=== PATIENT | female | born 1955 | race Caucasian/White ===

== ENCOUNTER → 2017-02-26 | Day surgery (SDC) | payer OTHER, MEDICAID ==
[~2017-02-26] MED LIST: ADVAI250I INH; FLON0.053; FURO1TAB93 PO; HYDR50TA94 PO; LATA.005%O EACH EYE; Levothyroxine Sodium PO; METO50TA PO; Meclizine Hcl PO; NYST100024 TOP; NYSTT TOP; POTA10TA48 PO; PRAV40 PO; PROPOFOL 200 MG/20 ML AMP IV ONE; PROT40TA PO; RIVA15 PO; RIVA20 PO; SERO200T PO; TEGR100T PO
--- NOTE | 2017-02-26 13:40 | GIPROC ---
[facility] [address] [facility], [id number] EGD PROCEDURE REPORT EXAM DATE: 02/26/2017 PATIENT NAME: Zena Davenport I MR #: [id number] BIRTHDATE: 1955 ATTENDING: Hola Barrientos MD ORDER #: [id number] HELIUM ARC WELDER: none STATUS: outpatient INDICATIONS: The patient is a 61 yr old female here for an EGD due to heartburn PROCEDURE PERFORMED: EGD w/ biopsy MEDICATIONS: None and Per Anesthesia. TOPICAL ANESTHETIC: none CONSENT: The patient understands the risks and benefits of the procedure and understands that these risks include, but are not limited to: sedation, allergic reaction, infection, perforation and/or bleeding. Alternative means of evaluation and treatment include, among others: physical exam, x-rays, and/or surgical intervention. The patient elects to proceed with this endoscopic procedure. medical equipment was checked for proper function. Hand hygiene and appropriate measures for infection prevention was taken. After the risks, benefits and alternatives of the procedure were thoroughly explained, Informed consent was verified, confirmed and timeout was successfully executed by the treatment team. The patient was anesthetized with topical anesthesia and the EC-[id number] ([id number]) endoscope was introduced through the mouth and advanced to the first portion of the duodenum. Biopsy for H. Pylori and gastritis done at antrum. Retroflexed views revealed a hiatal hernia The gastroscope was then slowly withdrawn and removed. ESOPHAGUS: A 3 cm hiatal hernia was noted. ADVERSE EVENTS: There were no complications. IMPRESSIONS: 1. 3 cm hiatal hernia 2. Retroflexed views revealed a hiatal hernia RECOMMENDATIONS: 1. Await biopsy results. Biopsy results will not be ready for 7-10 days. If you don't hear from us in two weeks, call our office for biopsy results. 2. Continue PPI PATIENT CONDITION: fair DISPOSITION: Home REPEAT EXAM: NONE Hola Barrientos MD eSigned: Hola Barrientos MD 02/26/2017 1:39 PM cc: Hola Barrientos MD
== END | disposition home or self-care (01) ==
LOC: ESDC 11:59
PROVIDERS: ATTEND Surgery
DX: R12 Heartburn (principal); K44.9 Diaphragmatic hernia without obstruction or gangrene
CPT/HCPCS: 88305; 88312

== ENCOUNTER 2017-05-13 05:31 | Inpatient (IN) | payer OTHER, MEDICARE ==
[~2017-05-13] VITALS: Ht 167.6 cm; Wt 117.9 kg
[~2017-05-13 05:31] MED LIST changes: +ADVA250A INH; -ADVAI250I INH; +CLON1TAB PO; +DOXE100C4 PO; -FLON0.053; +FLUT1SPR5 EACH NARE; -FURO1TAB93 PO; +FURO40TA PO; -HYDR50TA94 PO; +LEVO88TA2 PO; -Levothyroxine Sodium PO; -Meclizine Hcl PO; -NYST100024 TOP; +NYST10007 TOPICAL; -NYSTT TOP; -POTA10TA48 PO; -PRAV40 PO; +PRAV40TA2 PO; -PROPOFOL 200 MG/20 ML AMP IV ONE; +REST0.05 EACH EYE; -RIVA15 PO; -RIVA20 PO; +SERO400T PO; -TEGR100T PO; +TEGR200T PO
[2017-05-13] MEDS ORDERED: APREPITANT 40 MG CAP PO SCH (06:00)
[2017-05-13] MEDS ORDERED: ceFAZolin 2 GM PREMIX 50 ML IV SCH (06:00)
[2017-05-13] MEDS ORDERED: SCOPOLAMINE 1.5 MG PATCH T-DERMAL SCH (06:00)
[2017-05-13] MEDS ORDERED: ACETAMINOPHEN 1000 MG/100 ML 100 ML IV SCH (06:00)
[2017-05-13] MEDS ORDERED: SODIUM CHLORID 0.9% 500 ML IV PRN (06:00)
[2017-05-13] MEDS ORDERED: METOPROLOL TARTRATE 25 MG TAB PO PRN (06:00)
[2017-05-13] MEDS ORDERED: CHLORHEXIDINE GLUCONATE 2 % 1 PACK (2 CLOTHS) TOPICAL PRN (06:00)
[2017-05-13] MEDS ORDERED: LACTATED RINGER'S 1000 ML IV PRN (06:00)
[2017-05-13] MEDS ORDERED: ONDANSETRON HCL 4 MG/2 ML VIAL IV PUSH SCH (06:00)
[2017-05-13] MEDS ORDERED: POVIDONE IODINE 5% (ANTISEPSIS KIT) 4 APPLICATIONS EACH NARE PRN (06:00)
[2017-05-13] MEDS ORDERED: metroNIDAZOLE 500 MG INJ 100 ML IV ONE (06:17)
[2017-05-13] MEDS ORDERED: ROPI0.5T PO (06:32)
[2017-05-13] MEDS ORDERED: MONT10TA4 PO (06:32)
[2017-05-13] MEDS ORDERED: LUMI0.01 EACH EYE (06:32)
[2017-05-13] MEDS ORDERED: BUPIVACAINE/EPINEPHRINE 0.5% PF 30 ML VIAL ONE (07:01)
--- NOTE | 2017-05-13 07:35 | HHI.PR ---
Immediate Post Op Note Procedure Date: May 13, 2017 Pre Op Diagnosis: morbid obesity bmi 43, HTN, GERD, DM, Hypercholestremia, hiatal hernia Post Op Diagnosis: same Surgeon: Hola Barrientos MD Airdox Fitter(s): thai Procedure: laparoscopic sleeve gastrectomy with hiatal hernia repair Findings: large hiatal hernia, no leak with methylene blue Complications: none Specimen(s) removed: none Estimated blood loss: 5cc Anesthesia: General Drains: None Patient to: PACU Patient Condition: Good Hola Barrientos MD May 13, 2017 07:35
[2017-05-13] MEDS ORDERED: SODIUM CHLORIDE 0.9% FLUSH 10 ML FLUSH IV FLUSH PRN (07:45)
[2017-05-13] MEDS ORDERED: diphenhydrAMINE HCL ELIXIR 12.5 MG/5 ML CUP PO PRN (07:45)
[2017-05-13] MEDS ORDERED: NALOXONE HCL 0.4 MG/ML AMP IV PUSH PRN (07:45)
[2017-05-13] MEDS ORDERED: MORPHINE SULFATE 30 MG/30 ML PCA IV SCH (07:45)
[2017-05-13] MEDS ORDERED: ACETAMINOPHEN 325MG/HYDROcodone 7.5MG/15ML UDC PO PRN (07:45)
[2017-05-13] MEDS ORDERED: diphenhydrAMINE HCL 50 MG/ML VIAL IV PUSH PRN (07:45)
[2017-05-13] MEDS ORDERED: ENALAPRILAT 1.25 MG/ML VIAL IV PUSH PRN ×2 (07:45→22:30)
[2017-05-13] MEDS ORDERED: BUPIVACAINE LIPOSOME PF 1.3% 20 ML VIAL ONE (07:59)
[2017-05-13] MEDS ORDERED: Post-op Orders (for Pharmacy) OTHER ONE (09:22)
[2017-05-13] MEDS ORDERED: MIDAZOLAM HCL 2 MG/2 ML VIAL ONE (09:32)
[2017-05-13] MEDS ORDERED: *morphine SULFATE 4 MG/ML PERIprocedure ONLY ONE (09:38)
[2017-05-13] MEDS: METOCLOPRAMIDE HCL 10 MG/2 ML VIAL IV PUSH SCH ×3 (09:39→22:30)
[2017-05-13] MEDS ORDERED: HYDROmorphone HCL PF 2 MG/ML VIAL ONE (09:53)
[2017-05-13] MEDS ORDERED: *ONDANSETRON 4 MG VIAL PERIprocedural Use ONLY ONE (09:54)
[2017-05-13] MEDS: D5-1/2 NS + KCL 20 MEQ INJ 1,000 ML IV SCH ×2 (10:03→15:27)
[2017-05-13] MEDS: PANTOPRAZOLE SOD 40 MG DELAYED RELEASE TAB PO SCH (10:06)
[2017-05-13] MEDS: SODIUM CHLORIDE 0.9% FLUSH 10 ML FLUSH IV FLUSH SCH ×2 (10:06→20:20)
[2017-05-13] MEDS: RESP: ALBUTEROL 2.5 MG/3 ML NEB (SCH) INH ×4 (11:01→23:58)
[2017-05-13] MEDS ORDERED: DO NOT ADM ANY ANTICOAGULANT DRUGS PRN (11:45)
[2017-05-13] MEDS ORDERED: SODIUM CHLOR 0.9% 250 ML INJ 500 ML IV ONE (12:00)
[2017-05-13] MEDS ORDERED: DEXAMETHASONE SOD PHOS 4 MG/ML VIAL IV ONE (12:00)
[2017-05-13] MEDS ORDERED: LIDOCAINE HCL 1% PF 5 ML SYRINGE OTHER ONE (12:00)
[2017-05-13] MEDS ORDERED: PHENYLEPH/NS 1000 MCG/10 ML SYR IV ONE (12:00)
[2017-05-13] MEDS ORDERED: GLYCOPYRROLATE 1 MG/5 ML SYRINGE IV PUSH ONE (12:00)
[2017-05-13] MEDS ORDERED: ONDANSETRON HCL 4 MG/2 ML VIAL IV ONE (12:00)
[2017-05-13] MEDS ORDERED: NEOSTIGMINE 5 MG/5 ML SYRINGE IV PUSH ONE (12:00)
[2017-05-13] MEDS ORDERED: LACTATED RINGER'S 1000 ML INJ 1,000 ML IV ONE (12:00)
[2017-05-13] MEDS ORDERED: PHENYLEPHRINE HCL 10 MG/ML VIAL IV ONE (12:00)
[2017-05-13] MEDS ORDERED: PROPOFOL 200 MG/20 ML AMP IV ONE (12:00)
[2017-05-13] MEDS ORDERED: ceFAZolin INJ 1,000 MG VIAL IV ONE (12:00)
[2017-05-13] MEDS ORDERED: ROCURONIUM INJ 50 MG/5 ML SYRINGE IV PUSH ONE (12:00)
[2017-05-13] MEDS ORDERED: ePHEDrine/NS 25 MG/5 ML SYRINGE IV ONE (12:00)
[2017-05-13 13:00] VITALS: BP 141/81; PULSE 77; RESP 19; TEMP 96.5; O2SAT 91
[2017-05-13] MEDS: PCA - TOTAL MG MORPHINE DELIVERED PER SHIFT SCH ×2 (14:00→22:00)
--- NOTE | 2017-05-13 14:03 | MP ---
cc: Hola Barrientos MD DATE OF OPERATION: 05/13/2017 PREOPERATIVE DIAGNOSIS: 1. Morbid obesity BMI of 43. 2. Hypertension. 3. Hypercholesterolemia. 4. Diabetes. 5. Reflux. 6. Morbid obesity. 7. Hiatal Hernia POSTOPERATIVE DIAGNOSIS: 1. Morbid obesity BMI of 43. 2. Hypertension. 3. Hypercholesterolemia. 4. Diabetes. 5. Reflux. 6. Morbid obesity. 7. Hiatal Hernia PROCEDURE PERFORMED: 1. Laparoscopic sleeve gastrectomy over 36 Estonian ViSiGi bougie. 2. Hiatal hernia repair. SURGEON: Hola Barrientos MD PRODUCTION GRAPHIC DESIGNER: MD Dr. Mickey Jay was necessary due to the complexity of the case. Dr. Arevalo helped with retraction and camera control. ANESTHESIA: Steph LAURENT, see anesthesia sheet. ESTIMATED BLOOD LOSS: 10 mL. DRAINS: None. COMPLICATIONS: None. WOUND CLASSIFICATION: Clean, contaminated. SPECIMENS: None. INDICATIONS: The patient is a 61-year-old female who presented with multiple attempts at weight loss without success. Patient with a BMI of 43 and comorbidities including hypertension, diabetes, reflux, hiatal hernia, hypercholesterolemia. Indications/decision for bariatric surgery discussed in detail. Decision to proceed. DETAILS OF THE PROCEDURE: The patient was taken to the operating room suite, placed in the supine position. She was prepped and draped in the usual sterile fashion after induction of general endotracheal anesthesia. A brief time out done stating correct patient, procedure, and surgical site. We were all in agreement with this. Attention first directed to a point 15 cm distal to the xiphoid. Local anesthetic anesthetized. A stab diogo incision was made. A 5 mm Optiview port was done under direct visualization to create pneumoperitoneum. On cursory inspection, no evidence of injury. Several other trocars placed including two 5 mm left lower quadrant trocars and a 15 mm right lower quadrant trocar and a 5 mm right upper quadrant trocar for liver retraction. Local anesthetic injected at all port sites prior to placement. The patient was placed in reverse Trendelenburg and airplaned to the right. A luz-flex retractor placed to retract the left lobe of the liver. On inspection, there was noted to be a moderate sized hiatal hernia. The curve of the stomach was taken down using a Harmonic scalpel 5 cm proximal to the pylorus and carried all the way up to the angle of His. The posterior ligamentous attachments were minimally taken down. The hiatal hernia was identified. The left ayse of the diaphragm was dissected out. The GE junction was mobilized into the abdominal cavity. The hernia sac was reduced and excised. The crura of the diaphragm were approximated anteriorly with 0 silk heoren-tt-iurao suture. This was done over a 36 Estonian ViSiGi bougie. The ViSiGi was advanced to the pylorus and placed to suction. The stomach was divided creating the free gastrectomy approximately 5 cm from the pylorus carried up all the way to the angle of His to remove approximately 80% of the stomach. This was done using Endo-CRISTOBAL Greybull stapler initially black load, followed by green and gold loads. These were done with all reinforced Seamguard staple lines. This was taken distance 2 cm from the angle incisura staple line and 1 cm from the GE junction. The bougie was removed. Methylene blue was used to test with 60 mL x 2 without evidence of leaking. Evicel was used. Bleeding points were controlled for hemostasis. The sleeve gastrectomy remnants stomach was removed from the 15 mm port site in the right lower quadrant. The fascia to 15 mm was closed with 0 Vicryl suture passer in a kctazh-hz-hkifj fashion. All lap and instrument counts were correct at the end of the procedure. The patient tolerated the procedure. No intraoperative complications. The patient was extubated and taken to PACU. MD PHILIPPE Sutton/DONELL/emanuel , 01:03 PM , 01:36 PM KIM
[2017-05-13] MEDS: ENOXAPARIN SODIUM 40 MG/0.4 ML SYRINGE SQ SCH (15:15)
[2017-05-13] MEDS: metroNIDAZOLE 500 MG INJ 100 ML IV SCH ×2 (15:15→23:09)
[2017-05-13] MEDS: ACETAMINOPHEN 1000 MG/100 ML 100 ML IV SCH ×2 (15:15→20:16)
[2017-05-13 16:00] VITALS: BP 124/81; PULSE 82; RESP 17; TEMP 97.6; O2SAT 92
[2017-05-13 20:00] VITALS: BP 133/72; PULSE 95; RESP 20; TEMP 99.6; O2SAT 92
[2017-05-13] MEDS ORDERED: LORazepam 1 MG TAB PO PRN (22:30)
[2017-05-13] MEDS: DOXEPIN HCL 50 MG CAP PO SCH (22:30)
[2017-05-13] MEDS: QUEtiapine FUMARATE 200 MG TAB PO SCH (23:08)
[2017-05-14] VITALS (8 sets, daily range): BP systolic 104–153; BP diastolic 56–73; PULSE 77–98; RESP 16–19; TEMP 97–98.6; O2SAT 92–94
[2017-05-14] MEDS: carBAMazepine 200 MG TAB PO SCH ×2 (00:06→21:00)
[2017-05-14] MEDS: ACETAMINOPHEN 1000 MG/100 ML 100 ML IV SCH ×3 (01:41→22:30)
[2017-05-14] MEDS: D5-1/2 NS + KCL 20 MEQ INJ 1,000 ML IV SCH ×3 (02:00→18:00)
[2017-05-14] MEDS: RESP: ALBUTEROL 2.5 MG/3 ML NEB (SCH) INH ×5 (03:14→20:45)
[2017-05-14] MEDS: METOCLOPRAMIDE HCL 10 MG/2 ML VIAL IV PUSH SCH (04:19)
[2017-05-14] MEDS: LEVOTHYROXINE SODIUM 88 MCG TAB PO SCH ×2 (05:56→06:00)
[2017-05-14] MEDS: metroNIDAZOLE 500 MG INJ 100 ML IV SCH (05:58)
[2017-05-14] MEDS: PCA - TOTAL MG MORPHINE DELIVERED PER SHIFT SCH (06:00)
[2017-05-14] MEDS: ONDANSETRON HCL 4 MG/2 ML VIAL IV PUSH PRN ×3 (06:01→21:26)
[2017-05-14 08:33] LABS: AUTOMATED NEUTROPHIL # 10.2 TH/MM3 (1.8-7.7); BASOPHIL % 0.1 % (0.0-2.0); EOSINOPHIL # 0.1 TH/MM3 (0-0.4); EOSINOPHIL % 0.8 % (0.0-4.0); HEMATOCRIT 34.8 % (35.0-46.0); HEMOGLOBIN 11.3 GM/DL (11.6-15.3); LYMPH % 10.1 % (9.0-44.0); LYMPHOCYTE # 1.2 TH/MM3 (1.0-4.8); MEAN CELL VOLUME 89.1 FL (80.0-100.0); MEAN CORPUSCULAR HGB CONC 32.6 % (32.0-36.0); MEAN PLATELET VOLUME 7.9 FL (7.0-11.0); MONO % 5.6 % (0.0-8.0); MONOCYTE # 0.7 TH/MM3 (0-0.9); NEUT % 83.4 % (16.0-70.0); PLATELET COUNT 211 TH/MM3 (150-450); WHITE BLOOD COUNT 12.3 TH/MM3 (4.0-11.0)
[2017-05-14] MEDS: RESTASIS 0.05% EACH EYE SCH ×2 (09:00→21:00)
[2017-05-14] MEDS: SODIUM CHLORIDE 0.9% FLUSH 10 ML FLUSH IV FLUSH SCH ×2 (09:00→21:00)
[2017-05-14] MEDS: EYE EACH EYE SCH ×2 (09:00→21:00)
[2017-05-14 09:01] LABS: BICARBONATE 29.3 MEQ/L (21.0-32.0); CALCIUM 8.2 MG/DL (8.5-10.1); CREATININE 0.92 MG/DL (0.50-1.00); MAGNESIUM 1.9 MG/DL (1.5-2.5)
[2017-05-14] MEDS: BUDESONIDE-FORMOTEROL 160/4.5 MCG INHALER INH SCH ×4 (09:15→21:00)
[2017-05-14] MEDS ORDERED: carBAMazepine 200 MG TAB PO SCH ×2 (09:15→21:00)
[2017-05-14] MEDS: MONTELUKAST SODIUM 10 MG TAB PO SCH (09:24)
[2017-05-14] MEDS: PANTOPRAZOLE SOD 40 MG DELAYED RELEASE TAB PO SCH (09:24)
[2017-05-14] MEDS: QUEtiapine FUMARATE 200 MG TAB PO SCH ×2 (09:24→21:22)
[2017-05-14] MEDS: NYSTATIN 100,000 U/GM PWD 15 GM BTL TOPICAL SCH ×3 (09:27→17:17)
[2017-05-14] MEDS: FLUTICASONE PROPIONATE 50 MCG/ACT 16 GM NASAL SPRAY NASAL SCH (09:28)
[2017-05-14] MEDS ORDERED: BENZOCAINE-MENTHOL (SUGAR FREE) 15 MG-3.6 MG LOZENGE BUCCAL ONE (09:30)
--- NOTE | 2017-05-14 10:10 | HHI.PR ---
Subjective Subjective Notes Very lethargic C/O of SOB and Chest pain Objective Vitals/I&O Vital Signs Date Time Temp Pulse Resp B/P (MAP) Pulse Ox O2 Delivery O2 Flow Rate FiO2 05/14/17 08:00 98.6 86 19 104/56 (72) 94 05/14/17 07:37 Nasal Cannula 4.00 Labs Laboratory Tests Test 05/14/17 07:30 05/14/17 07:35 White Blood Count 12.3 Red Blood Count 3.90 Hemoglobin 11.3 Hematocrit 34.8 Mean Corpuscular Volume 89.1 Mean Corpuscular Hemoglobin 29.0 Mean Corpuscular Hemoglobin Concent 32.6 Red Cell Distribution Width 15.0 Platelet Count 211 Mean Platelet Volume 7.9 Neutrophils (%) (Auto) 83.4 Lymphocytes (%) (Auto) 10.1 Monocytes (%) (Auto) 5.6 Eosinophils (%) (Auto) 0.8 Basophils (%) (Auto) 0.1 Neutrophils # (Auto) 10.2 Lymphocytes # (Auto) 1.2 Monocytes # (Auto) 0.7 Eosinophils # (Auto) 0.1 Basophils # (Auto) 0.0 CBC Comment DIFF FINAL Differential Comment Blood Urea Nitrogen 12 Creatinine 0.92 Random Glucose 114 Calcium Level 8.2 Magnesium Level 1.9 Sodium Level 139 Potassium Level 4.3 Chloride Level 103 Carbon Dioxide Level 29.3 Anion Gap 7 Estimat Glomerular Filtration Rate 62 Cardiovascular: Regular Lungs: Rhonchi Abdomen: Post-op tenderness Extremities: Perfused Wound Wound : Wound Location: Abdomen Appearance: Clean & Dry A/P Assessment and Plan 61yo F POD#1 laparoscopic VSG with hiatal hernia repair -STAT EKG, CXR, and troponin -Restart Advair and EZ pap -D/C IV pain meds, transition to oral. Use acetaminophen as first choice Discharge Planning Depending on hospital course Attending Statement patient seen at bedside appears lethargic, on 3L o2 sats >90%, hx of home O2 check cxr, ce, labs will give half dose lasix encourage IS, Ambulation dvt ppx adjust pain meds, start home meds Attestation The exam, history, and the medical decision-making described in the above note were completed with the assistance of the mid-level provider. I reviewed and agree with the findings presented. I attest that I had a cxtu-uj-zder encounter with the patient on the same day, and personally performed and documented my assessment and findings in the medical record. Parveen Devine May 14, 2017 10:10 Hola Barrientos MD May 18, 2017 05:42
--- NOTE | 2017-05-14 11:02 | RADRPT ---
EXAM DATE/TIME: 05/14/2017 10:19 [facility] COMPARISON: No previous studies available for comparison. INDICATIONS : Short of breath. MEDICAL HISTORY : None. SURGICAL HISTORY : None. ENCOUNTER: Initial ACUITY: 1 day PAIN SCORE: Non-responsive. LOCATION: Bilateral chest FINDINGS: A single portable frontal view the chest shows significant cardiomegaly. Pulmonary vascular engorgeme nt. Small bilateral pleural effusions. Scattered mixed interstitial and intra-alveolar opacities part icularly within the bases. Low lung volumes noted. CONCLUSION: Pulmonary edema. Rogerio Johnson Jr., MD on May 14, 2017 at 11:00 Board Certified Radiologist. This report was verified electronically.
[2017-05-14] MEDS ORDERED: FUROSEMIDE 20 MG/2 ML VIAL IV PUSH ONE (12:00)
[2017-05-14] MEDS: ENOXAPARIN SODIUM 40 MG/0.4 ML SYRINGE SQ SCH (14:17)
[2017-05-14] MEDS: METOCLOPRAMIDE HCL 10 MG/2 ML VIAL IV PUSH PRN (17:16)
[2017-05-14] MEDS ORDERED: NON-FORMULARY DRUG (Quetiapine (Seroquel) 400 MG) PO SCH (21:00)
[2017-05-14] MEDS ORDERED: DOXEPIN HCL 50 MG CAP PO SCH (21:00)
[2017-05-14] MEDS: LATANOPROST 0.005% OPHT SOLN 2.5 ML BTL EACH EYE SCH (21:00)
[2017-05-14] MEDS: BRIMONIDINE TARTRATE 0.15% OPHT SOLN 5 ML BTL EACH EYE SCH (21:00)
[2017-05-14] MEDS: ACETAMINOPHEN 325MG/HYDROcodone 7.5MG/15ML UDC PO PRN (21:21)
[2017-05-14] MEDS: DOXEPIN HCL 50 MG CAP PO SCH (21:21)
[2017-05-14] MEDS ORDERED: HYOSCYAMINE SOLN 0.125 MG/ML 15 ML BTL SL PRN (22:15)
[2017-05-14] MEDS: MORPHINE SULFATE 2 MG/ML INJ IV PRN (22:30)
[2017-05-15] VITALS: BP 110/54; PULSE 94; RESP 18; TEMP 96.6; O2SAT 92
[2017-05-15] MEDS: RESP: ALBUTEROL 2.5 MG/3 ML NEB (SCH) INH ×3 (00:35→07:50)
[2017-05-15] MEDS: D5-1/2 NS + KCL 20 MEQ INJ 1,000 ML IV SCH ×4 (02:00→22:40)
[2017-05-15] MEDS: LEVOTHYROXINE SODIUM 88 MCG TAB PO SCH (05:10)
[2017-05-15] MEDS: METOCLOPRAMIDE HCL 10 MG/2 ML VIAL IV PUSH PRN (05:11)
[2017-05-15] MEDS: MORPHINE SULFATE 2 MG/ML INJ IV PRN ×2 (05:11→13:25)
[2017-05-15] MEDS: ACETAMINOPHEN 1000 MG/100 ML 100 ML IV SCH ×3 (05:11→17:20)
[2017-05-15 07:20] LABS: AUTOMATED NEUTROPHIL # 7.3 TH/MM3 (1.8-7.7); BASOPHIL % 0.2 % (0.0-2.0); EOSINOPHIL # 0.2 TH/MM3 (0-0.4); EOSINOPHIL % 1.7 % (0.0-4.0); HEMATOCRIT 36.6 % (35.0-46.0); HEMOGLOBIN 12.2 GM/DL (11.6-15.3); LYMPH % 13.4 % (9.0-44.0); LYMPHOCYTE # 1.2 TH/MM3 (1.0-4.8); MEAN CORPUSCULAR HEMOGLOBIN 29.3 PG (27.0-34.0); MEAN CORPUSCULAR HGB CONC 33.4 % (32.0-36.0); MEAN PLATELET VOLUME 8.5 FL (7.0-11.0); MONO % 5.2 % (0.0-8.0); MONOCYTE # 0.5 TH/MM3 (0-0.9); NEUT % 79.5 % (16.0-70.0); PLATELET COUNT 218 TH/MM3 (150-450); RED BLOOD COUNT 4.16 MIL/MM3 (4.00-5.30); RED CELL DISTRIBUTION WIDTH 14.3 % (11.6-17.2); WHITE BLOOD COUNT 9.2 TH/MM3 (4.0-11.0)
[2017-05-15 07:30] LABS: BICARBONATE 29.9 MEQ/L (21.0-32.0); CALCIUM 8.4 MG/DL (8.5-10.1); CREATININE 0.81 MG/DL (0.50-1.00)
[2017-05-15 08:00] VITALS: BP 143/64; PULSE 91; RESP 17; TEMP 99.4; O2SAT 92
[2017-05-15] MEDS: MONTELUKAST SODIUM 10 MG TAB PO SCH (08:06)
[2017-05-15] MEDS: PANTOPRAZOLE SOD 40 MG DELAYED RELEASE TAB PO SCH (08:06)
[2017-05-15] MEDS: ACETAMINOPHEN 325MG/HYDROcodone 7.5MG/15ML UDC PO PRN ×3 (08:06→22:42)
[2017-05-15] MEDS: QUEtiapine FUMARATE 200 MG TAB PO SCH ×2 (08:11→22:43)
[2017-05-15] MEDS: NYSTATIN 100,000 U/GM PWD 15 GM BTL TOPICAL SCH ×3 (08:11→17:20)
[2017-05-15] MEDS: SODIUM CHLORIDE 0.9% FLUSH 10 ML FLUSH IV FLUSH SCH ×2 (08:12→22:40)
[2017-05-15] MEDS: BUDESONIDE-FORMOTEROL 160/4.5 MCG INHALER INH SCH ×3 (08:12→22:39)
[2017-05-15] MEDS: EYE EACH EYE SCH (08:12)
[2017-05-15] MEDS: RESTASIS 0.05% EACH EYE SCH (08:12)
[2017-05-15] MEDS: FLUTICASONE PROPIONATE 50 MCG/ACT 16 GM NASAL SPRAY NASAL SCH (08:12)
--- NOTE | 2017-05-15 08:32 | EKG ---
Date Performed: 05/14/2017 Time Performed: 10:33:33 PTAGE: 61 years EKG: Sinus rhythm POSSIBLE INFERIOR MYOCARDIAL INFARCTION , PROBABLY OLD ABNORMAL ECG NO PREVIOUS TRACING DOCTOR: Gokul Huizar Interpretating Date/Time 05/15/2017 08:31:20
[2017-05-15] MEDS ORDERED: ACETAMIN 325 MG/BUTALBITAL 50 MG/CAFFEINE 40 MG TAB PO ONE (10:00)
--- NOTE | 2017-05-15 10:20 | RADRPT ---
EXAM DATE/TIME: 05/15/2017 09:38 [facility] COMPARISON: CHEST SINGLE AP, May 14, 2017, 10:19. INDICATIONS : Short of breath MEDICAL HISTORY : asthma, allergies, migraines SURGICAL HISTORY : gastric sleeve ENCOUNTER: Initial ACUITY: 1 day PAIN SCORE: 0/10 LOCATION: Bilateral chest FINDINGS: The heart remains enlarged. There is less interstitial edema. Bibasilar consolidative changes persi st worse on the left than the right. CONCLUSION: Some improvement. Persistent bibasilar consolidative changes remain worse on the lef t. Diego Barrera MD FACR on May 15, 2017 at 10:18 Board Certified Radiologist. This report was verified electronically.
--- NOTE | 2017-05-15 10:52 | HHI.PR ---
Subjective Subjective Notes C/O of headache and dizziness Refuses to get up and walk Objective Vitals/I&O Vital Signs Date Time Temp Pulse Resp B/P (MAP) Pulse Ox O2 Delivery O2 Flow Rate FiO2 05/15/17 08:00 99.4 91 17 143/64 (90) 92 05/14/17 20:48 Nasal Cannula 3.00 Labs Laboratory Tests Test 05/15/17 05:41 White Blood Count 9.2 Red Blood Count 4.16 Hemoglobin 12.2 Hematocrit 36.6 Mean Corpuscular Volume 88.0 Mean Corpuscular Hemoglobin 29.3 Mean Corpuscular Hemoglobin Concent 33.4 Red Cell Distribution Width 14.3 Platelet Count 218 Mean Platelet Volume 8.5 Neutrophils (%) (Auto) 79.5 Lymphocytes (%) (Auto) 13.4 Monocytes (%) (Auto) 5.2 Eosinophils (%) (Auto) 1.7 Basophils (%) (Auto) 0.2 Neutrophils # (Auto) 7.3 Lymphocytes # (Auto) 1.2 Monocytes # (Auto) 0.5 Eosinophils # (Auto) 0.2 Basophils # (Auto) 0.0 CBC Comment DIFF FINAL Differential Comment Blood Urea Nitrogen 8 Creatinine 0.81 Random Glucose 114 Calcium Level 8.4 Sodium Level 137 Potassium Level 4.4 Chloride Level 102 Carbon Dioxide Level 29.9 Anion Gap 5 Estimat Glomerular Filtration Rate 71 Radiology Last Impressions Chest X-Ray 05/15/17 0000 Signed Impressions: Service Date/Time: Monday, May 15, 2017 09:38 - CONCLUSION: Some improvement. Persistent bibasilar consolidative changes remain worse on the left. Diego Barrera MD FACR Abdomen: Post-op tenderness Extremities: Perfused Wound Wound : Wound Location: Abdomen Appearance: Clean & Dry A/P Assessment and Plan 61yo F POD#2 laparoscopic VSG with hiatal hernia repair -CXR showed pulmonary edema, she was treated with furosemide 20mg, will repeat CXR -Continue with pulmonary toilet -Encourage OOB to chair and ambulation, patient needs to ambulate halls at least QID -Fioricet given for headache -Increase fluids as tolerated Discharge Planning Depending on hospital course Attending Statement patient seen at bedside some improvement today encourage ambulation IS await cxr c/o nichole add fiorcet will need extra day Attestation The exam, history, and the medical decision-making described in the above note were completed with the assistance of the mid-level provider. I reviewed and agree with the findings presented. I attest that I had a vbhr-ag-vcir encounter with the patient on the same day, and personally performed and documented my assessment and findings in the medical record. Parveen Devine May 15, 2017 10:52 Hola Barrientos MD May 18, 2017 05:45
[2017-05-15 12:00] VITALS: BP 165/90; PULSE 82; RESP 16; TEMP 96.8; O2SAT 93
[2017-05-15] MEDS: ENOXAPARIN SODIUM 40 MG/0.4 ML SYRINGE SQ SCH (13:25)
--- NOTE | 2017-05-15 15:48 | HHI.FF ---
Face to Face Verification Diagnosis: (1) Physical deconditioning Physical Therapy Order: Improve ambulation, Strength and gait training Occupational Therapy Order: Evaluate and Treat, Improve ADL Home Health Nursing Instructions: Improve ambulation I have seen patient Zena Davenport on 05/15/17. My clinical findings support the need for the requested home health care services because: Deconditioned w/ increased weakness High risk of falls I certify that my clinical findings support that this patient is homebound because: Post-op weakness Parveen Devine May 15, 2017 15:48
[2017-05-15 16:00] VITALS: BP 156/65; PULSE 73; RESP 17; TEMP 98.2; O2SAT 96
[2017-05-15 20:00] VITALS: BP 145/84; PULSE 76; RESP 20; TEMP 98; O2SAT 95
[2017-05-15] MEDS: ONDANSETRON HCL 4 MG/2 ML VIAL IV PUSH PRN (22:17)
[2017-05-15 22:38] VITALS: O2SAT 96
[2017-05-15] MEDS: BRIMONIDINE TARTRATE 0.15% OPHT SOLN 5 ML BTL EACH EYE SCH (22:39)
[2017-05-15] MEDS: LATANOPROST 0.005% OPHT SOLN 2.5 ML BTL EACH EYE SCH (22:39)
[2017-05-15] MEDS: carBAMazepine 200 MG TAB PO SCH (22:43)
[2017-05-15] MEDS: DOXEPIN HCL 50 MG CAP PO SCH (22:44)
[2017-05-16] VITALS: BP 110/65; PULSE 84; RESP 18; TEMP 97.6; O2SAT 94
[2017-05-16] MEDS: ONDANSETRON HCL 4 MG/2 ML VIAL IV PUSH PRN ×2 (05:40→17:55)
[2017-05-16] MEDS: ACETAMINOPHEN 325MG/HYDROcodone 7.5MG/15ML UDC PO PRN ×4 (05:43→23:56)
[2017-05-16] MEDS: LATANOPROST 0.005% OPHT SOLN 2.5 ML BTL EACH EYE SCH (05:44)
[2017-05-16] MEDS: BUDESONIDE-FORMOTEROL 160/4.5 MCG INHALER INH SCH ×5 (05:46→20:18)
[2017-05-16] MEDS: LEVOTHYROXINE SODIUM 88 MCG TAB PO SCH (05:59)
[2017-05-16] MEDS: RESTASIS 0.05% EACH EYE SCH ×3 (06:00→20:19)
[2017-05-16] MEDS: EYE EACH EYE SCH ×3 (06:00→20:19)
[2017-05-16] MEDS: D5-1/2 NS + KCL 20 MEQ INJ 1,000 ML IV SCH ×3 (07:20→19:20)
[2017-05-16 08:00] VITALS: BP 112/57; PULSE 71; RESP 20; TEMP 97.1; O2SAT 95
[2017-05-16] MEDS: MONTELUKAST SODIUM 10 MG TAB PO SCH (08:15)
[2017-05-16] MEDS: MORPHINE SULFATE 2 MG/ML INJ IV PRN (08:15)
[2017-05-16] MEDS: PANTOPRAZOLE SOD 40 MG DELAYED RELEASE TAB PO SCH (08:15)
[2017-05-16] MEDS: SODIUM CHLORIDE 0.9% FLUSH 10 ML FLUSH IV FLUSH SCH ×2 (08:16→20:18)
[2017-05-16] MEDS: NYSTATIN 100,000 U/GM PWD 15 GM BTL TOPICAL SCH ×3 (08:16→17:59)
[2017-05-16] MEDS: QUEtiapine FUMARATE 200 MG TAB PO SCH ×2 (08:16→20:18)
[2017-05-16] MEDS: FLUTICASONE PROPIONATE 50 MCG/ACT 16 GM NASAL SPRAY NASAL SCH (08:18)
[2017-05-16] MEDS ORDERED: FUROSEMIDE 20 MG/2 ML VIAL IV PUSH ONE (08:45)
[2017-05-16] MEDS ORDERED: SUMAtriptan SUCCINATE 25 MG TAB PO ONE ×2 (11:00→23:30)
--- NOTE | 2017-05-16 11:06 | HHI.PR ---
Subjective Subjective Notes Still complaining of headache, suspect rebound from narcotics Still refuses to ambulate Very slow with PO fluids Objective Vitals/I&O Vital Signs Date Time Temp Pulse Resp B/P (MAP) Pulse Ox O2 Delivery O2 Flow Rate FiO2 05/16/17 09:52 Nasal Cannula 3.00 05/16/17 08:00 97.1 71 20 112/57 (75) 95 Labs Last Impressions Chest X-Ray 05/15/17 0000 Signed Impressions: Service Date/Time: Monday, May 15, 2017 09:38 - CONCLUSION: Some improvement. Persistent bibasilar consolidative changes remain worse on the left. Diego Barrera MD FACR Radiology Last Impressions Chest X-Ray 05/15/17 0000 Signed Impressions: Service Date/Time: Monday, May 15, 2017 09:38 - CONCLUSION: Some improvement. Persistent bibasilar consolidative changes remain worse on the left. Diego Barrera MD FACR Abdomen: Post-op tenderness Extremities: Perfused Wound Wound : Wound Location: Abdomen Appearance: Clean & Dry A/P Assessment and Plan 61yo F POD#3 laparoscopic VSG with hiatal hernia repair -CXR yesterday shows some improvement, continue dose of furosemide -Continue with pulmonary toilet -Imitrex for headache, need to wean off IV morphine -Increase fluids as tolerated -Case mgmt working on home health Discharge Planning Depending on hospital course Attending Statement patient seen at bedside still with inadequate po PT for OOB dvt ppx half dose lasix HHC for d/c likely tomorrow fully discussed what to expect at home and reviewed diet instructions Attestation The exam, history, and the medical decision-making described in the above note were completed with the assistance of the mid-level provider. I reviewed and agree with the findings presented. I attest that I had a [id number]-ep-pvvp encounter with the patient on the same day, and personally performed and documented my assessment and findings in the medical record. Parveen Devine May 16, 2017 11:06 Hola Barrientos MD May 18, 2017 05:51
[2017-05-16 12:00] VITALS: BP 117/61; PULSE 73; RESP 18; TEMP 98.1; O2SAT 94
[2017-05-16] MEDS: ENOXAPARIN SODIUM 40 MG/0.4 ML SYRINGE SQ SCH (12:21)
[2017-05-16 16:00] VITALS: BP 135/81; PULSE 74; RESP 18; TEMP 97.8; O2SAT 95
[2017-05-16 19:25] VITALS: O2SAT 94
[2017-05-16 20:00] VITALS: BP 125/91; PULSE 78; RESP 20; TEMP 98.1; O2SAT 94
[2017-05-16] MEDS: BRIMONIDINE TARTRATE 0.15% OPHT SOLN 5 ML BTL EACH EYE SCH (20:19)
[2017-05-16] MEDS: DOXEPIN HCL 50 MG CAP PO SCH (20:19)
[2017-05-16] MEDS: carBAMazepine 200 MG TAB PO SCH (20:19)
[2017-05-17] VITALS: BP 110/52; PULSE 74; RESP 19; TEMP 98.9; O2SAT 94
[2017-05-17] MEDS: LEVOTHYROXINE SODIUM 88 MCG TAB PO SCH (05:01)
[2017-05-17] MEDS: ONDANSETRON HCL 4 MG/2 ML VIAL IV PUSH PRN ×2 (07:05→13:18)
[2017-05-17] MEDS: ACETAMINOPHEN 325MG/HYDROcodone 7.5MG/15ML UDC PO PRN ×2 (07:05→13:17)
[2017-05-17 08:00] VITALS: BP 119/58; PULSE 73; RESP 19; TEMP 96.6; O2SAT 91
[2017-05-17] MEDS: BUDESONIDE-FORMOTEROL 160/4.5 MCG INHALER INH SCH ×2 (09:00)
[2017-05-17] MEDS: SODIUM CHLORIDE 0.9% FLUSH 10 ML FLUSH IV FLUSH SCH (09:00)
[2017-05-17] MEDS: MONTELUKAST SODIUM 10 MG TAB PO SCH (09:19)
[2017-05-17] MEDS: QUEtiapine FUMARATE 200 MG TAB PO SCH (09:19)
[2017-05-17] MEDS: PANTOPRAZOLE SOD 40 MG DELAYED RELEASE TAB PO SCH (09:19)
[2017-05-17] MEDS: D5-1/2 NS + KCL 20 MEQ INJ 1,000 ML IV SCH (09:21)
[2017-05-17] MEDS: NYSTATIN 100,000 U/GM PWD 15 GM BTL TOPICAL SCH ×2 (09:21→13:18)
[2017-05-17] MEDS: FLUTICASONE PROPIONATE 50 MCG/ACT 16 GM NASAL SPRAY NASAL SCH (09:22)
[2017-05-17] MEDS: EYE EACH EYE SCH (09:23)
[2017-05-17] MEDS: RESTASIS 0.05% EACH EYE SCH (09:23)
[2017-05-17 12:00] VITALS: BP 135/66; PULSE 74; RESP 18; TEMP 97.4; O2SAT 92
[2017-05-17] MEDS: ENOXAPARIN SODIUM 40 MG/0.4 ML SYRINGE SQ SCH (13:18)
--- NOTE | 2017-05-17 13:46 | HHI.PR ---
Subjective Subjective Notes Looks better today still very slow with walking Objective Vitals/I&O Vital Signs Date Time Temp Pulse Resp B/P (MAP) Pulse Ox O2 Delivery O2 Flow Rate FiO2 05/17/17 12:00 97.4 74 18 135/66 (89) 92 05/16/17 19:25 Nasal Cannula 3.00 Labs Laboratory Tests Test 05/14/17 07:35 05/15/17 05:41 Blood Urea Nitrogen 12 MG/DL 8 MG/DL Creatinine 0.92 MG/DL 0.81 MG/DL Random Glucose 114 MG/DL 114 MG/DL Calcium Level 8.2 MG/DL 8.4 MG/DL Magnesium Level 1.9 MG/DL Sodium Level 139 MEQ/L 137 MEQ/L Potassium Level 4.3 MEQ/L 4.4 MEQ/L Chloride Level 103 MEQ/L 102 MEQ/L Carbon Dioxide Level 29.3 MEQ/L 29.9 MEQ/L Troponin I LESS THAN 0.02 NG/ML White Blood Count 9.2 TH/MM3 Red Blood Count 4.16 MIL/MM3 Hemoglobin 12.2 GM/DL Hematocrit 36.6 % Mean Corpuscular Volume 88.0 FL Mean Corpuscular Hemoglobin 29.3 PG Mean Corpuscular Hemoglobin Concent 33.4 % Red Cell Distribution Width 14.3 % Platelet Count 218 TH/MM3 Mean Platelet Volume 8.5 FL Neutrophils (%) (Auto) 79.5 % Lymphocytes (%) (Auto) 13.4 % Monocytes (%) (Auto) 5.2 % Eosinophils (%) (Auto) 1.7 % Basophils (%) (Auto) 0.2 % Neutrophils # (Auto) 7.3 TH/MM3 Lymphocytes # (Auto) 1.2 TH/MM3 Monocytes # (Auto) 0.5 TH/MM3 Eosinophils # (Auto) 0.2 TH/MM3 Basophils # (Auto) 0.0 TH/MM3 CBC Comment DIFF FINAL Differential Comment Anion Gap 5 MEQ/L Estimat Glomerular Filtration Rate 71 ML/MIN Radiology Last Impressions Chest X-Ray 05/17/17 0000 Signed Impressions: Service Date/Time: Wednesday, May 17, 2017 13:55 - CONCLUSION: Improving aeration in both lung bases. Minimal atelectatic changes or scarring on the left. Afshin Chu MD Last Impressions Chest X-Ray 05/15/17 0000 Signed Impressions: Service Date/Time: Saturday, May 15, 2017 09:38 - CONCLUSION: Some improvement. Persistent bibasilar consolidative changes remain worse on the left. Diego Barrera MD FACR Cardiovascular: Regular Lungs: Rhonchi Abdomen: Post-op tenderness Extremities: Perfused Wound Wound : Wound Location: Abdomen Appearance: Clean & Dry A/P Assessment and Plan 61yo F POD#4 laparoscopic VSG with hiatal hernia repair -CXR yesterday shows some improvement, continue dose of furosemide -Continue with pulmonary toilet -Headaches improved, can use acetaminophen -Increase fluids as tolerated Discharge Planning D/C home with home health Attending Statement patient seen at bedside I discussed going home patient has improved and is ambulating in halls she states she is ready to go home with [facility] I reviewed the post op diet with her and instructed her to stick with liquids until follow up she stated understanding I discussed risks of not following recommendations Attestation The exam, history, and the medical decision-making described in the above note were completed with the assistance of the mid-level provider. I reviewed and agree with the findings presented. I attest that I had a [id number]-hi-[id number] encounter with the patient on the same day, and personally performed and documented my assessment and findings in the medical record. Parveen Devine May 17, 2017 13:46 Hola Barrientos MD May 24, 2017 21:02
[2017-05-17] MEDS ORDERED: FUROSEMIDE 20 MG/2 ML VIAL IV PUSH ONE (14:30)
[2017-05-17] MEDS ORDERED: RESP: ALBUTEROL 2.5 MG/IPRATROPIUM 0.5 MG NEB (SCH) NEB (14:30)
--- NOTE | 2017-05-17 14:54 | RADRPT ---
EXAM DATE/TIME: 05/17/2017 13:55 [facility] COMPARISON: CHEST SINGLE AP, May 15, 2017, 9:38. INDICATIONS : Congestion, short of breath. MEDICAL HISTORY : asthma, allergies, migraines SURGICAL HISTORY : gastric sleeve ENCOUNTER: Initial ACUITY: 3 days PAIN SCORE: 0/10 LOCATION: Bilateral chest FINDINGS: A single view of the chest demonstrates improving aeration in the bases with some resolving atelectas is, particularly on the left. Lungs are hypoinflated. Heart size is borderline prominent a well compe nsated. Osseous structures are intact CONCLUSION: Improving aeration in both lung bases. Minimal atelectatic changes or scarring on the left. Afshin Chu MD on May 17, 2017 at 14:51 Board Certified Radiologist. This report was verified electronically.
[2017-05-17 16:00] VITALS: BP 148/100; PULSE 99; RESP 18; TEMP 97.4; O2SAT 90
[2017-05-17] MEDS ORDERED: FURO20TA PO (16:03)
[2017-05-17 16:23] VITALS: O2SAT 97
== END 2017-05-17 19:36 | disposition home health service (06) | DRG 620 ==
LOC: HSDI 05:31 → N07B 12:35
PROVIDERS: ADMIT Surgery; ATTEND Surgery
PROC: 0BQT4ZZ Repair Diaphragm, Percutaneous Endoscopic Approach (ICD-10-PCS; 2017-05-13)
PROC: 0DB64Z3 Excision of Stomach, Percutaneous Endoscopic Approach, Vertical (ICD-10-PCS; principal; 2017-05-13 07:27)
DX: E66.01 Morbid (severe) obesity due to excess calories (principal); J81.1 Chronic pulmonary edema; Z99.81 Dependence on supplemental oxygen; E11.65 Type 2 diabetes mellitus with hyperglycemia; I10 Essential (primary) hypertension; Z68.41 Body mass index [BMI] 40.0-44.9, adult; E78.00 Pure hypercholesterolemia, unspecified; K21.9 Gastro-esophageal reflux disease without esophagitis; K44.9 Diaphragmatic hernia without obstruction or gangrene; G44.40 Drug-induced headache, not elsewhere classified, not intractable; T40.2X5A Adverse effect of other opioids, initial encounter; J45.909 Unspecified asthma, uncomplicated; F32.9 Major depressive disorder, single episode, unspecified; F41.9 Anxiety disorder, unspecified; Y92.230 Patient room in hospital as the place of occurrence of the external cause
CPT/HCPCS: 71045; 76937; 80048; 82948; 83735; 84484; 85025; 93005; 94150; 94640; 94664; C9290; J0131; J0690; J1100; J1170; J1200; J1650; J1940; J2250; J2270; J2370; J2405; J2710; J2765; J3010; J3480; J7050; J7120; J7613; J8501

== ENCOUNTER 2017-05-31 15:32 | Inpatient (IN) | payer OTHER, MEDICARE ==
[~2017-05-31] VITALS: Ht 166.4 cm; Wt 117.0 kg
[~2017-05-31 15:32] MED LIST changes: +FURO20TA PO; -FURO40TA PO; +LUMI0.01 EACH EYE; +MONT10TA4 PO; +ROPI0.5T PO
[2017-05-31 17:07] VITALS: BP 102/59; PULSE 65; RESP 16; TEMP 98.8; O2SAT 95
--- NOTE | 2017-05-31 18:34 | ED.CB ---
ED Call Back Communication Dr. Barrientos called prior to patient's arrival and states that patient had sleeve gastrectomy 2 weeks ago and was in the hospital for 4 days. She wears home oxygen at night. In the office she was 78% on room air. He states that she recently has been on Levaquin and Lasix. She was recently and [facility] for feeling weak and dizzy and sent to rehabilitation. He recommended chest x-ray and any additional testing that would be needed. I ordered a chest x-ray while this patient was in the ambulance hallway while she is awaiting evaluation Carolyn Sotomayor MD May 31, 2017 18:34
--- NOTE | 2017-05-31 19:47 | RADRPT ---
EXAM DATE/TIME: 05/31/2017 18:44 [facility] COMPARISON: No previous studies available for comparison. INDICATIONS : Cough. Shortness of breath. MEDICAL HISTORY : Asthma. SURGICAL HISTORY : None. ENCOUNTER: Initial ACUITY: 2 weeks PAIN SCORE: 2/10 LOCATION: Bilateral chest FINDINGS: Mild basilar airspace disease on the right and left retrocardiac consolidation and no significant eff usion. No pneumothorax. Cardiomegaly. CONCLUSION: 1. Left basilar consolidation. Differential diagnosis includes pneumonia. Right basilar atelectasis. Cardiomegaly. Pete Mathew MD on May 31, 2017 at 19:44 Board Certified Radiologist. This report was verified electronically.
[2017-05-31 20:14] VITALS: BP 124/81; PULSE 73; RESP 20; O2SAT 100
[2017-05-31] MEDS ORDERED: TYLETAB34 PO (20:23)
[2017-05-31] MEDS ORDERED: SODIUM CHLORIDE 0.9% FLUSH 10 ML FLUSH IVF PRN (21:15)
[2017-05-31] MEDS ORDERED: CEFEPIME INJ 2,000 MG in SODIUM CHLORIDE 0.9% INJ 100 ML IV ONE (21:15)
[2017-05-31] MEDS ORDERED: AZITHROMYCIN INJ 500 MG in SODIUM CHLOR 0.9% 250 ML INJ 250 ML IV ONE (21:15)
[2017-05-31] MEDS ORDERED: methylPREDNISolone SOD SUCC 125 MG/2 ML VIAL IV PUSH ONE (21:15)
--- NOTE | 2017-05-31 21:16 | PD ---
HPI Chief Complaint: General Weakness Time Seen by Provider: 21:09 Travel History International Travel<30 days: No Contact w/Intl Traveler<30days: No Traveled to known affect area: No History of Present Illness HPI patient had a bariatric surgery done about [address] haywood as well as repaired hiatal hernia. patient states that she was having difficulty with breathing and prod cough, pt states that she uses oxygen only when going out and active she wears 2 to 3 L NC. nkda hypothyroid, rls, hysterectomy, cholecystectomy and gastric sleeve, bipolar, copd hx PFSH Past Medical History Arthritis: Yes Bipolar Disorder: Yes Depression: Yes Cancer: No Cardiovascular Problems: No COPD: Yes Diabetes: No Diminished Hearing: No GERD: Yes Genitourinary: No Hepatitis: No Hiatal Hernia: No Hypertension: Yes Immune Disorder: Yes (OP) Insomnia: Yes Medical other: Yes (CLOTS LEFT ANKLE) Musculoskeletal: Yes (OA, OP) Neurologic: Yes (RLS, VERTIGO) Psychiatric: Yes (ANXIETY, DEPRESSION, BIPOLAR) Reproductive: No Respiratory: Yes (ALLERGIES, ASTHMA, SHORTNESS OF BREATH ON EXERTION) Thyroid Disease: Yes (HYPO) Past Surgical History Abdominal Surgery: Yes (GASTRIC SLEEVE) AICD: No Cardiac Surgery: No Ear Surgery: No Endocrine Surgery: No Eye Surgery: No Genitourinary Surgery: Yes (CHOLECYSTECTOMY) Gynecologic Surgery: Yes (HYSTERECTOMY) Joint Replacement: Yes (BOTH HIPS) Oral Surgery: No Pacemaker: No Thoracic Surgery: No Other Surgery: Yes Social History Alcohol Use: Yes (LAST DRINK UNKNOWN. DENIES RECENT USE) Tobacco Use: No Substance Use: No Allergies-Medications (Allergen,Severity, Reaction): Coded Allergies: No Known Allergies (Unverified Allergy, Unknown, 05/31/17) Per paty Davenport [phone]. Reported Meds & Prescriptions Reported Meds & Active Scripts Active Furosemide 20 Mg Tab 20 Mg PO DAILY Reported Zofran Odt (Ondansetron Odt) 4 Mg Tab 4 Mg SL BEFORE MEALS Tylenol-Codeine #3 (Acetaminophen-Codeine) 300-30 mg Tab 2 Tab PO Q6H PRN Lumigan Opth Drops (Bimatoprost) 0.01% Soln 1 Drop EACH EYE HS Montelukast (Montelukast Sodium) 10 Mg Tab 10 Mg PO DAILY Ropinirole 0.5 Mg Tab 0.5 Mg PO HS Clonazepam 1 Mg Tab 1 Mg PO HS Doxepin (Doxepin HCl) 100 Mg Cap 100 Mg PO HS Seroquel (Quetiapine Fumarate) 400 Mg Tab 400 Mg PO HS Seroquel (Quetiapine Fumarate) 200 Mg Tab 200 Mg PO DAILY Levothyroxine (Levothyroxine Sodium) 88 Mcg Tab 88 Mcg PO DAILY Restasis Opth (Cyclosporine Opth) 0.05% Emul 1 Drop EACH EYE BID Tegretol (Carbamazepine) 200 Mg Tab 100 Mg PO DAILY Tegretol (Carbamazepine) 200 Mg Tab 200 Mg PO HS Flonase Nasal Biggs (Fluticasone Nasal Biggs) 50 Mcg/Act Biggs 50 Mcg EACH NARE DAILY Advair Diskus Inh (Fluticasone-Salmeterol Inh) 250-50 Mcg/Blist Aer 1 Puff INH BID Rinse mouth after use. Xalatan Opth Drops (Latanoprost) 0.005% Drops 1 Drop EACH EYE HS Metoprolol Tartrate 50 Mg Tab 50 Mg PO BID Nystop Topical (Nystatin Topical) 100,000 Unit/Gm Powd 1 Applic TOPICAL TID Protonix (Pantoprazole Sodium) 40 Mg Tab 40 Mg PO DAILY Pravastatin 40 Mg Tab 40 Mg PO DAILY Review of Systems General / Constitutional: No: Fever Eyes: No: Visual changes HENT: No: Headaches Cardiovascular: No: Chest Pain or Discomfort Respiratory: Positive: Cough, Shortness of Breath Gastrointestinal: No: Abdominal Pain Genitourinary: No: Dysuria Musculoskeletal: No: Pain Skin: No Rash Neurologic: No: Weakness Psychiatric: No: Depression Endocrine: No: Polydipsia Hematologic/Lymphatic: No: Easy Bruising Physical Exam Narrative GENERAL: SKIN: Warm and dry. HEAD: Atraumatic. Normocephalic. EYES: Pupils equal and round. No scleral icterus. No injection or drainage. ENT: No nasal bleeding or discharge. Mucous membranes pink and moist. NECK: Trachea midline. No JVD. CARDIOVASCULAR: Regular rate and rhythm. RESPIRATORY: No accessory muscle use. Clear to auscultation. Breath sounds equal bilaterally. GASTROINTESTINAL: Abdomen soft, non-tender, nondistended. MUSCULOSKELETAL: Extremities without clubbing, cyanosis, or edema. No obvious deformities. NEUROLOGICAL: Awake and alert. No obvious cranial nerve deficits. Motor grossly within normal limits. Five out of 5 muscle strength in the arms and legs. Normal speech. PSYCHIATRIC: Appropriate mood and affect; insight and judgment normal. Data Data Last Documented VS Vital Signs Date Time Temp Pulse Resp B/P (MAP) Pulse Ox O2 Delivery O2 Flow Rate FiO2 05/31/17 21:25 95 2.00 05/31/17 20:17 76 19 Nasal Cannula 05/31/17 20:14 124/81 (95) 05/31/17 17:07 98.8 Orders Orders Chest, Pa & Lat (05/31/17 ) Complete Blood Count With Diff (05/31/17 21:10) Comprehensive Metabolic Panel (05/31/17 21:10) Lactic Acid Sepsis Protocol (05/31/17 21:10) Pneumococcal Urinary Antigen (05/31/17 21:10) Influenzae A/B Antigen (05/31/17 21:10) Blood Culture (05/31/17 21:10) Legionella Urinary Antigen (05/31/17 21:10) Sputum Culture And Gram Stain (05/31/17 21:10) Iv Access Insert/Monitor (05/31/17 21:10) Oximetry (05/31/17 21:10) Oxygen Administration (05/31/17 21:10) Sodium Chloride 0.9% Flush (Ns Flush) (05/31/17 21:15) Cefepime Inj (Maxipime Inj) (05/31/17 21:15) Azithromycin Inj (Zithromax Inj) (05/31/17 21:15) Albuterol Neb (Albuterol Neb) (05/31/17 21:15) Methylprednisolone So Succ Inj (Solumedr (05/31/17 21:15) B-Type Natriuretic Peptide (05/31/17 21:16) Ct Pulmonary Angiogram (05/31/17 21:16) Labs Laboratory Tests Test 05/31/17 21:37 05/31/17 21:42 White Blood Count 11.2 TH/MM3 Red Blood Count 4.08 MIL/MM3 Hemoglobin 11.6 GM/DL Hematocrit 35.6 % Mean Corpuscular Volume 87.2 FL Mean Corpuscular Hemoglobin 28.5 PG Mean Corpuscular Hemoglobin Concent 32.7 % Red Cell Distribution Width 14.6 % Platelet Count 325 TH/MM3 Mean Platelet Volume 9.3 FL Neutrophils (%) (Auto) 69.3 % Lymphocytes (%) (Auto) 18.4 % Monocytes (%) (Auto) 5.9 % Eosinophils (%) (Auto) 6.0 % Basophils (%) (Auto) 0.4 % Neutrophils # (Auto) 7.7 TH/MM3 Lymphocytes # (Auto) 2.1 TH/MM3 Monocytes # (Auto) 0.7 TH/MM3 Eosinophils # (Auto) 0.7 TH/MM3 Basophils # (Auto) 0.0 TH/MM3 CBC Comment DIFF FINAL Differential Comment Blood Urea Nitrogen 21 MG/DL Creatinine 1.36 MG/DL Random Glucose 71 MG/DL Total Protein 7.3 GM/DL Albumin 3.2 GM/DL Calcium Level 9.9 MG/DL Alkaline Phosphatase 230 U/L Aspartate Amino Transf (AST/SGOT) 62 U/L Alanine Aminotransferase (ALT/SGPT) 65 U/L Total Bilirubin 0.8 MG/DL Sodium Level 137 MEQ/L Potassium Level 4.3 MEQ/L Chloride Level 97 MEQ/L Carbon Dioxide Level 31.2 MEQ/L Anion Gap 9 MEQ/L Estimat Glomerular Filtration Rate 39 ML/MIN Lactic Acid Level 0.9 mmol/L B-Type Natriuretic Peptide 52 PG/ML MDM Medical Decision Making Medical Screen Exam Complete: Yes Emergency Medical Condition: Yes Medical Record Reviewed: Yes Differential Diagnosis pna v pulm edema v pulm embolus Narrative Course CBC shows no leukocytosis, no left shift, no anemia, and normal platelet count GFR 39 LFTs are mildly elevated at 62 and 65 for the AST and ALT correspondently. Beta natruretic peptide is negative and lactic acid is negative Flu test is negative X-ray shows left basilar consolidation as read per radiologist Diagnosis Primary Impression: Left lower lobe pneumonia with hypoxemia Admitting Information Admitting Physician Requests: Observation Nomi Weiner MD May 31, 2017 21:16
[2017-05-31] MEDS: RESP: ALBUTEROL 2.5 MG/3 ML NEB (SCH) INH (21:19)
[2017-05-31 21:25] VITALS: O2SAT 95
[2017-05-31 22:03] LABS: AUTOMATED NEUTROPHIL # 7.7 TH/MM3 (1.8-7.7); BASOPHIL % 0.4 % (0.0-2.0); EOSINOPHIL # 0.7 TH/MM3 (0-0.4); HEMATOCRIT 35.6 % (35.0-46.0); HEMOGLOBIN 11.6 GM/DL (11.6-15.3); LYMPH % 18.4 % (9.0-44.0); LYMPHOCYTE # 2.1 TH/MM3 (1.0-4.8); MEAN CELL VOLUME 87.2 FL (80.0-100.0); MEAN CORPUSCULAR HEMOGLOBIN 28.5 PG (27.0-34.0); MEAN CORPUSCULAR HGB CONC 32.7 % (32.0-36.0); MEAN PLATELET VOLUME 9.3 FL (7.0-11.0); MONO % 5.9 % (0.0-8.0); MONOCYTE # 0.7 TH/MM3 (0-0.9); NEUT % 69.3 % (16.0-70.0); PLATELET COUNT 325 TH/MM3 (150-450); RED BLOOD COUNT 4.08 MIL/MM3 (4.00-5.30); RED CELL DISTRIBUTION WIDTH 14.6 % (11.6-17.2); WHITE BLOOD COUNT 11.2 TH/MM3 (4.0-11.0)
[2017-05-31 22:16] LABS: ALT (GPT) 65 U/L (10-53)
[2017-05-31 22:19] LABS: ALKALINE PHOSPHATASE 230 U/L (45-117); TOTAL BILIRUBIN ADULT 0.8 MG/DL (0.2-1.0); TOTAL PROTEIN 7.3 GM/DL (6.4-8.2)
[2017-05-31 22:27] LABS: ALBUMIN 3.2 GM/DL (3.4-5.0); AST (GOT) 62 U/L (15-37); BICARBONATE 31.2 MEQ/L (21.0-32.0); BLOOD UREA NITROGEN 21 MG/DL (7-18); CALCIUM 9.9 MG/DL (8.5-10.1); CHLORIDE 97 MEQ/L (98-107); CREATININE 1.36 MG/DL (0.50-1.00); GLOMERULAR FILTRATION RATE 39 ML/MIN (>89); GLUCOSE,RANDOM 71 MG/DL (74-106); SODIUM (NA) 137 MEQ/L (136-145)
[2017-05-31] MEDS ORDERED: ZOFR4TAB3 SL (22:57)
[2017-06-01] MEDS ORDERED: IODIXANOL 320 MG/ML 10 ML VIAL (for Rad CT) IVCONTRAST ONE (00:09)
--- NOTE | 2017-06-01 00:23 | RADRPT ---
EXAM DATE/TIME: 06/01/2017 00:06 [facility] COMPARISON: CHEST PA & LAT, May 31, 2017, 18:44. INDICATIONS : Generalized weakness; rule out pulmonary embolus. Abnormal chest x-ray exam demonstrating left basila r consolidation concerning for pneumonia. IV CONTRAST: 50 cc Visipaque (iodixanol) IV RADIATION DOSE: 10.62 CTDIvol (mGy) MEDICAL HISTORY : Chronic obstructive pulmonary disease. SURGICAL HISTORY : Hysterectomy. Cholecystectomy.Gastric sleeve, bilateral hip replacements ENCOUNTER: Initial ACUITY: 1 day PAIN SCALE: 0/10 LOCATION: chest TECHNIQUE: Volumetric scanning of the chest was performed using a pulmonary embolism protocol MIP images were re constructed. Using automated exposure control and adjustment of the mA and/or kV according to patien t size, radiation dose was kept as low as reasonably achievable to obtain optimal diagnostic quality images. DICOM format image data is available electronically for review and comparison. Follow-up recommendations for detected pulmonary nodules are based at a minimum on nodule size and pa tient risk factors according to Fleischner Society Guidelines. FINDINGS: PULMONARY ARTERIES: No filling defects are seen in the pulmonary arteries through the segmental level. LUNGS: There is no pneumothorax . There are areas of consolidation in the left lower lobe. There are small a reas of consolidation in the right posterior lower lobe. No concerning pulmonary nodule is visualized . PLEURAE: There is no pleural thickening or pleural effusion. MEDIASTINUM: There is good visualization of the great vessels of the middle mediastinum. No evidence of mediastin al or hilar adenopathy/mass. MUSCULOSKELETAL: Within normal limits for patient age. MISCELLANEOUS: The visualized upper abdominal organs demonstrate no acute abnormality. CONCLUSION: 1. No evidence of pulmonary embolism. 2. Areas of consolidation in the left lower lobe and milder consolidation in the right lower lobe mos t characteristic of pneumonia. Maxwell Blanton MD on June 01, 2017 at 0:19 Board Certified Radiologist. This report was verified electronically.
[2017-06-01] MEDS ORDERED: ACETAMINOPHEN/HYDROcodone 325 MG/5 MG TAB PO PRN (00:30)
[2017-06-01] MEDS ORDERED: ACETAMINOPHEN/HYDROcodone 325 MG/10 MG TAB PO PRN (00:30)
[2017-06-01] MEDS ORDERED: ONDANSETRON HCL 4 MG/2 ML VIAL IVP PRN (00:30)
[2017-06-01] MEDS ORDERED: BISACODYL 10 MG SUPP RECTAL PRN (00:30)
[2017-06-01] MEDS ORDERED: SODIUM CHLORIDE 0.9% FLUSH 10 ML FLUSH IV FLUSH PRN (00:30)
[2017-06-01] MEDS ORDERED: SENNOSIDES 8.6 MG TAB PO PRN (00:30)
[2017-06-01] MEDS ORDERED: ACETAMINOPHEN 325 MG TAB PO PRN (00:30)
[2017-06-01] MEDS ORDERED: clonazePAM 1 MG TAB PO ONE (00:45)
[2017-06-01] MEDS: MORPHINE SULFATE 4 MG/ML INJ IV PUSH ONE ×2 (00:45→14:09)
[2017-06-01] MEDS ORDERED: PILL SPLITTER OTHER PRN (00:45)
[2017-06-01] MEDS: SODIUM CHLOR 0.9% 1000 ML INJ 1,000 ML IV SCH ×3 (02:07→21:00)
--- NOTE | 2017-06-01 02:30 | HHI.HP ---
[facility] Unknown Admission Diagnosis LLL PNA WITH HYPOXEMIA, POST GASTRECTOMY SLEEVE Diagnoses: (1) PNA (pneumonia) Diagnosis: Principal (2) Hypoxia Diagnosis: Principal (3) Renal insufficiency Diagnosis: Principal (4) Chronic back pain Diagnosis: Principal Travel History International Travel<30 Days: No Contact w/Intl Traveler <30 Da: No Traveled to Known Affected Are: No History of Present Illness This is a 61-year-old female with a PMH of Bipolar Disorder, COPD, HTN, GERD and h/o Gastric Sleeve who was referred to the ER by Dr. Barrientos for eval of SOB and episode of hypoxia. Underwent Gastric Sleeve 05/13/[address] Barrientos, had some weakness post-op and was sent to Rehab. States while at Rehab today had significant SOB, seen by Dr. Barrientos and sent to ER for further eval. Denies fever or chills. On arrival, BP 102/59, HR 65, O2 sat 95% on 2L NC, Afebrile. While in ER, O2 sat 90-91% on RA. Noted to have some wheezing on exam, s/p DuoNeb w/ improvement. WBC 11.2. Creatinine 1.36, previously 0.81 on 05/15/17. CTA Pulm negative for PE, areas of consolidation left lower lobe and consolidation right lower lobe. S/p Cefepime/Zithro in ER. Review of Systems Except as stated in HPI: all other systems reviewed are Neg ROS: 14 point review of systems otherwise negative. Past Family Social History Past Medical History PMH: Bipolar Disorder, COPD, HTN, GERD and h/o Gastric Sleeve Past Surgical History PAST SURGICAL HISTORY: Hysterectomy, Cholecystectomy, Bilateral Hip Replacements, Gastric Sleeve Allergies: Coded Allergies: No Known Allergies (Unverified Allergy, Unknown, 05/31/17) Per daughter - Mikayla Issac [phone]. Family History PAST FAMILY HISTORY: Reviewed. No h/o DM or CAD Social History PAST SOCIAL HISTORY: Negative for alcohol, tobacco or drugs. Physical Exam Vital Signs Vital Signs Date Time Temp Pulse Resp B/P (MAP) Pulse Ox O2 Delivery O2 Flow Rate FiO2 06/01/17 00:33 94 Nasal Cannula 2.00 05/31/17 21:25 95 2.00 05/31/17 20:17 76 19 100 Nasal Cannula 2.00 05/31/17 20:14 73 20 124/81 (95) 100 Nasal Cannula 2.00 05/31/17 17:07 98.8 65 16 102/59 (73) 95 Physical Exam PE: GENERAL: Middle-aged white female in mild distress secondary to complaints of back pain HEENT: PERRLA, EOMI. No scleral icterus or conjunctival pallor. No lid lag or facial droop. CARDIOVASCULAR: Regular rate and rhythm. No obvious murmurs to auscultation. No chest tenderness to palpation. RESPIRATORY: No obvious rhonchi or wheezing. Clear to auscultation. Breath sounds equal bilaterally. GASTROINTESTINAL: Abdomen soft, non-tender, nondistended. BS normal. MUSCULOSKELETAL: Extremities without clubbing, cyanosis, or edema. No obvious deformities. NEUROLOGICAL: Awake, alert and oriented x4. No focal neurologic deficits. Moving both upper and lower extremities spontaneously. Laboratory Laboratory Tests Test 05/31/17 21:37 05/31/17 21:42 White Blood Count 11.2 Red Blood Count 4.08 Hemoglobin 11.6 Hematocrit 35.6 Mean Corpuscular Volume 87.2 Mean Corpuscular Hemoglobin 28.5 Mean Corpuscular Hemoglobin Concent 32.7 Red Cell Distribution Width 14.6 Platelet Count 325 Mean Platelet Volume 9.3 Neutrophils (%) (Auto) 69.3 Lymphocytes (%) (Auto) 18.4 Monocytes (%) (Auto) 5.9 Eosinophils (%) (Auto) 6.0 Basophils (%) (Auto) 0.4 Neutrophils # (Auto) 7.7 Lymphocytes # (Auto) 2.1 Monocytes # (Auto) 0.7 Eosinophils # (Auto) 0.7 Basophils # (Auto) 0.0 CBC Comment DIFF FINAL Differential Comment Blood Urea Nitrogen 21 Creatinine 1.36 Random Glucose 71 Total Protein 7.3 Albumin 3.2 Calcium Level 9.9 Alkaline Phosphatase 230 Aspartate Amino Transf (AST/SGOT) 62 Alanine Aminotransferase (ALT/SGPT) 65 Total Bilirubin 0.8 Sodium Level 137 Potassium Level 4.3 Chloride Level 97 Carbon Dioxide Level 31.2 Anion Gap 9 Estimat Glomerular Filtration Rate 39 Lactic Acid Level 0.9 B-Type Natriuretic Peptide 52 Date/Time Source Procedure Growth Status 05/31/17 21:37 Blood Peripheral Aerobic Blood Culture Pending Received 05/31/17 21:37 Blood Peripheral Anaerobic Blood Culture Pending Received 05/31/17 21:42 Nasal Washing Influenza Types A,B Antigen (GRETTA) - Final NEGATIVE FOR FLU A AND B ANTIGEN.... Complete Result Diagram: 05/31/17213605/31/172136 Caprini VTE Risk Assessment Caprini VTE Risk Assessment: No/Low Risk (score <= 1) Caprini Risk Assessment Model Point Value = 1 Point Value = 2 Point Value = 3 Point Value = 5 Age 41-60 Minor surgery BMI > 25 kg/m2 Swollen legs Varicose veins or History of unexplained or recurrent spontaneous Oral contraceptives or hormone replacement Sepsis (< 1 month) Serious lung disease, including pneumonia (< 1 month) Abnormal pulmonary function Acute myocardial infarction Congestive heart failure (< 1 month) History of inflammatory bowel disease Medical patient at bed rest Age 61-74 Arthroscopic surgery Major open surgery (> 45 min) Laparoscopic surgery (> 45 min) Malignancy Confined to bed (> 72 hours) Immobilizing plaster cast Central venous access Age >= 75 History of VTE Family history of VTE Factor V Leiden Prothrombin [id number] Lupus anticoagulant Anticardiolipin antibodies Elevated serum homocysteine Heparin-induced thrombocytopenia Other congenital or acquired thrombophilia Stroke (< 1 month) Elective arthroplasty Hip, pelvis, or leg fracture Acute spinal cord injury (< 1 month) Prophylaxis Regimen Total Risk Factor Score Risk Level Prophylaxis Regimen 0-1 Low Early ambulation 2 Moderate Order ONE of the following: *Sequential Compression Device (SCD) *Heparin 5000 units SQ BID 3-4 Higher Order ONE of the following medications: *Heparin 5000 units SQ TID *Enoxaparin/Lovenox 40 mg SQ daily (WT < 150 kg, CrCl > 30 mL/min) *Enoxaparin/Lovenox 30 mg SQ daily (WT < 150 kg, CrCl > 10-29 mL/min) *Enoxaparin/Lovenox 30 mg SQ BID (WT < 150 kg, CrCl > 30 mL/min) AND/OR *Sequential Compression Device (SCD) 5 or more Highest Order ONE of the following medications: *Heparin 5000 units SQ TID (Preferred with Epidurals) *Enoxaparin/Lovenox 40 mg SQ daily (WT < 150 kg, CrCl > 30 mL/min) *Enoxaparin/Lovenox 30 mg SQ daily (WT < 150 kg, CrCl > 10-29 mL/min) *Enoxaparin/Lovenox 30 mg SQ BID (WT < 150 kg, CrCl > 30 mL/min) AND *Sequential Compression Device (SCD) Assessment and Plan Problem List: (1) PNA (pneumonia) ICD Code: J18.9 - Pneumonia, unspecified organism (2) Hypoxia ICD Code: R09.02 - Hypoxemia (3) Renal insufficiency ICD Code: N28.9 - Disorder of kidney and ureter, unspecified (4) Chronic back pain ICD Code: M54.9 - Dorsalgia, unspecified; G89.29 - Other chronic pain Assessment and Plan A/P: 1. PNA: SOB w/ episode of hypoxia, CXR w/ Left basilar PNA, CTA Pulm negative for PE, consolidation LLL and RLL, images reviewed by me. S/p Cefepime/Zithro in ER, continue w/ IV Abx, check Sputum Cultures, DuoNeb prn. 2. Hypoxia: h/o COPD, on O2 intermittently at home, O2 sat 90-91% on RA while in ER, continue O2 as needed, monitor Oxymetry. 3. ANASTASIIA: Creatinine 1.36, previously 0.81 on 05/15/17, IVF for hydration, repeat labs in a.m. 4. Chronic Back Pain: reports taking MS IR 15mg at home for chronic back pain , will resume home medications. 5. DVT Prophylaxis: SCD/Teds. 6. Social work for d/c planning as needed. 7. Case discussed w/ ER physician at length, labs/records/imaging reviewed by me. Tricia Barraza MD Jun 01, 2017 02:30
[2017-06-01] MEDS: LEVOTHYROXINE SODIUM 88 MCG TAB PO SCH (06:20)
[2017-06-01 08:27] VITALS: BP 129/78; PULSE 68; RESP 19; TEMP 98.3; O2SAT 99
[2017-06-01] MEDS: PANTOPRAZOLE SOD 40 MG DELAYED RELEASE TAB PO SCH (09:00)
[2017-06-01] MEDS: SODIUM CHLORIDE 0.9% FLUSH 10 ML FLUSH IV FLUSH SCH ×2 (09:00→21:00)
[2017-06-01] MEDS: MONTELUKAST SODIUM 10 MG TAB PO SCH (09:00)
[2017-06-01] MEDS: BUDESONIDE-FORMOTEROL 160/4.5 MCG INHALER INH SCH ×2 (09:00→22:34)
[2017-06-01] MEDS: FUROSEMIDE 20 MG TAB PO SCH (09:00)
[2017-06-01] MEDS: QUEtiapine FUMARATE 200 MG TAB PO SCH ×2 (09:00→22:37)
[2017-06-01] MEDS: FLUTICASONE PROPIONATE 50 MCG/ACT 16 GM NASAL SPRAY NASAL SCH (09:00)
[2017-06-01] MEDS: METOPROLOL TARTRATE 50 MG TAB PO SCH ×2 (09:00→22:32)
[2017-06-01] MEDS: PRAVASTATIN SOD 40 MG TAB PO SCH (09:00)
[2017-06-01] MEDS: NYSTATIN 100,000 U/GM PWD 15 GM BTL TOPICAL SCH ×3 (09:00→20:01)
[2017-06-01] MEDS ORDERED: CYCLOSPORINE OPTH EACH EYE SCH (09:00)
[2017-06-01] MEDS: DOCUSATE SODIUM 50 MG/SENNA 8.6 MG TAB PO SCH ×2 (09:00→22:32)
[2017-06-01] MEDS: carBAMazepine 200 MG TAB PO SCH ×2 (09:00→22:33)
[2017-06-01 12:10] VITALS: BP 129/71; PULSE 69; RESP 17; O2SAT 98
[2017-06-01] MEDS ORDERED: MORPHINE SULFATE 4 MG/ML INJ ONE (14:02)
[2017-06-01] MEDS: CEFEPIME INJ 1,000 MG in SODIUM CHLORIDE 0.9% INJ 100 ML IV SCH (14:09)
[2017-06-01] MEDS ORDERED: CLON1 PO (15:01)
[2017-06-01 16:18] VITALS: BP 138/64; PULSE 72; RESP 16; TEMP 98.3; O2SAT 96
--- NOTE | 2017-06-01 17:36 | HHI.PR ---
Addendum Remarks The patient is seen with Dr. Ríos. She reports she came back to the hospital because she started becoming more short of breath with increasing cough. She does not feel much better compared to her arrival. She states she has a lot of pain from her bariatric surgery which is exacerbated by her coughing. She is requesting liquid pain medications, specifically liquid morphine, however had discussion with Dr. Ríos that morphine will not be prescribed, patient verbalized understanding. She is from [facility]. Pneumonia: agree with plan, continue antibiotics, add incentive spirometer, acapella Recent Bariatric Surgery: patient requesting vitamin be restarted however no vitamins on med list. Will start vitamin B complex and vitamin D. Multiple Pain Complaints: secondary to recent surgery, back pain. Patient demanding liquid morphine however after long discussion, patient agrees to liquid pain medication, will restart patient's Tylenol-Codeine liquid 10ml q6h prn pain. Jessica Givens PA-C Jun 01, 2017 17:36
[2017-06-01] MEDS: CHOLECALCIFEROL (VIT D3) 1000 UNIT TAB PO SCH ×2 (18:00→22:33)
[2017-06-01] MEDS: VITAMIN B CMPLX/VITC/FOLIC AC CAP PO SCH (18:00)
[2017-06-01] MEDS: ACETAMINOPHEN/CODEINE ELIX 120 MG/12 MG/5 ML CUP PO PRN (19:57)
[2017-06-01] MEDS: clonazePAM 1 MG TAB PO SCH ×2 (19:58→22:32)
[2017-06-01 20:56] VITALS: BP 138/89; PULSE 75; RESP 20; TEMP 99; O2SAT 96
[2017-06-01] MEDS ORDERED: NON-FORMULARY DRUG (Bimatoprost Opth Drops (Lumigan Opth Drops) 1 DROP) EACH EYE SCH (21:00)
[2017-06-01] MEDS: DOXEPIN HCL 50 MG CAP PO SCH (22:33)
[2017-06-02] MEDS: CEFEPIME INJ 1,000 MG in SODIUM CHLORIDE 0.9% INJ 100 ML IV SCH ×3 (00:03→22:31)
[2017-06-02 00:24] VITALS: BP 117/56; PULSE 63; RESP 20; TEMP 98.8; O2SAT 93
[2017-06-02] MEDS: AZITHROMYCIN INJ 500 MG in SODIUM CHLOR 0.9% 250 ML INJ 250 ML IV SCH ×2 (00:37→23:25)
[2017-06-02] MEDS: ACETAMINOPHEN/CODEINE ELIX 120 MG/12 MG/5 ML CUP PO PRN ×2 (02:39→15:48)
[2017-06-02 03:25] VITALS: BP 116/58; PULSE 59; RESP 16; TEMP 98.7; O2SAT 95
[2017-06-02 08:55] VITALS: BP 141/65; PULSE 59; RESP 20; TEMP 98.1; O2SAT 94
[2017-06-02] MEDS: VITAMIN B CMPLX/VITC/FOLIC AC CAP PO SCH (09:00)
--- NOTE | 2017-06-02 10:24 | HHI.PR ---
Subjective Remarks Follow up for pneumonia. Patient again very fixed on discussing her pain medications. She is now requesting something stronger than Tylenol with codeine as she states this is not controlling her pain. She reports headache, abdominal pain from recent surgery, back pain from hospital beds, and rib cage pain from coughing. She agrees to [place]. She reports continued nonproductive cough with some shortness of breath. She complains of increased nasal congestion and rhinitis today. Denies fevers/chills. Tolerating oral intake. She does not feel ready for discharge at this time. Objective Vitals Vital Signs Date Time Temp Pulse Resp B/P (MAP) Pulse Ox O2 Delivery O2 Flow Rate FiO2 06/02/17 09:00 Nasal Cannula 2.00 06/02/17 08:55 98.1 59 20 141/65 (90) 94 06/02/17 05:49 Nasal Cannula 2.00 06/02/17 03:25 98.7 59 16 116/58 (77) 95 06/02/17 00:24 98.8 63 20 117/56 (76) 93 06/01/17 20:56 99.0 75 20 138/89 (105) 96 06/01/17 16:18 98.3 72 16 138/64 (88) 96 06/01/17 15:39 06/01/17 12:10 69 17 129/71 (90) 98 Nasal Cannula 2.00 I/O 06/01/17 06/01/17 06/01/17 06/02/17 06/02/17 06/02/17 07:00 15:00 23:00 07:00 15:00 23:00 Intake Total 100 ml Balance 100 ml Intake IV Total 100 ml # Voids 1 1 Result Diagram: 05/31/17213605/31/172136 Imaging Last Impressions CT Angiography 05/31/172115 Signed Impressions: Service Date/Time: Thursday, June 01, 2017 00:06 - CONCLUSION: 1. No evidence of pulmonary embolism. 2. Areas of consolidation in the left lower lobe and milder consolidation in the right lower lobe most characteristic of pneumonia. Maxwell Blanton MD Chest X-Ray 05/31/17 0000 Signed Impressions: Service Date/Time: Wednesday, May 31, 2017 18:44 - CONCLUSION: 1. Left basilar consolidation. Differential diagnosis includes pneumonia. Right basilar atelectasis. Cardiomegaly. Pete Mathew MD Objective Remarks GENERAL: Well-nourished, well-developed female patient in NAD. SKIN: Warm and dry. No rash. HEENT: Normocephalic. Atraumatic. Pupils equal and round. Mucous membranes pink and moist. CARDIOVASCULAR: Regular rate and rhythm. No murmur appreciated. RESPIRATORY: No accessory muscle use. Breath sounds diminished at bilateral bases with some upper airway congestion, otherwise clear to auscultation. Breath sounds equal bilaterally. GASTROINTESTINAL: Abdomen soft, nondistended, diffuse minimal TTP, however nontender with distraction. Normoactive bowel sounds x4. MUSCULOSKELETAL: No obvious deformities. Extremities without clubbing, cyanosis , or edema. NEUROLOGICAL: Awake and alert. No obvious cranial nerve deficits. Motor grossly within normal limits. Normal speech. PSYCHIATRIC: Anxious mood; insight and judgment normal. Medications and IVs Current Medications Medications (Trade) Dose Ordered Sig/Chemo Route Start Time Stop Time Status Last Admin Azithromycin 500 mg/Sodium Chloride 250 ml @ 250 mls/hr Q24H IV 06/01/17 23:00 06/02/17 00:37 Cefepime HCl 1000 mg/Sodium Chloride 100 ml @ 200 mls/hr Q12H IV 06/01/17 11:00 06/02/17 00:03 (Duoneb Neb) 1 ampule Q4HR NEB PRN NEB 06/01/17 00:30 Sodium Chloride 1,000 ml @ 100 mls/hr Q10H IV 06/01/17 01:00 06/02/17 14:06 (NS Flush) 2 ml UNSCH PRN IV FLUSH 06/01/17 00:30 (NS Flush) 2 ml BID IV FLUSH 06/01/17 09:00 06/02/17 11:55 (Tylenol) 650 mg Q6H PRN PO 06/01/17 00:30 (Britt-Colace) 1 tab BID PO 06/01/17 09:00 06/02/17 11:52 (Milk Of Magnesia Liq) 30 ml Q12H PRN PO 06/01/17 00:30 (Senokot) 17.2 mg Q12H PRN PO 06/01/17 00:30 (Dulcolax Supp) 10 mg DAILY PRN RECTAL 06/01/17 00:30 (Lactulose Liq) 30 ml DAILY PRN PO 06/01/17 00:30 (TEGretol) 100 mg DAILY PO 06/01/17 09:00 06/02/17 11:46 (TEGretol) 200 mg HS PO 06/01/17 21:00 06/01/17 22:33 (KlonoPIN) 1 mg HS PO 06/01/17 21:00 06/02/17 12:22 (SINEquan) 100 mg HS PO 06/01/17 21:00 06/01/17 22:33 (Lasix) 20 mg DAILY PO 06/01/17 09:00 06/02/17 11:47 (Xalatan 0.005% Opth Soln) 1 drop HS EACH EYE 06/01/17 21:00 06/02/17 00:00 (Synthroid) 88 mcg DAILY@0600 PO 06/01/17 06:00 06/02/17 11:44 (Lopressor) 50 mg BID PO 06/01/17 09:00 06/02/17 11:51 (Singulair) 10 mg DAILY PO 06/01/17 09:00 06/02/17 11:45 (Mycostatin Powder) 1 applic TID TOPICAL 06/01/17 09:00 06/02/17 14:03 (Protonix) 40 mg DAILY PO 06/01/17 09:00 06/02/17 11:52 (Pravachol) 40 mg DAILY PO 06/01/17 09:00 06/02/17 11:52 (SEROquel) 200 mg DAILY PO 06/01/17 09:00 06/02/17 11:50 (Requip) 0.5 mg HS PO 06/01/17 21:00 06/01/17 22:34 Patient Own Medication PT OWN MED: (Cyclosporine O... BID EACH EYE 06/01/17 09:00 Future Hold (Flonase Reinaldo Spr) 1 spray DAILY NASAL 06/01/17 09:00 06/02/17 14:02 (Symbicort 160-4.5 Mcg Inh) 1 puff BID INH 06/01/17 09:00 06/02/17 11:54 (SEROquel) 400 mg HS PO 06/01/17 21:00 06/01/17 22:37 (Pill Splitter) 1 ea UNSCH PRN OTHER 06/01/17 00:45 (KlonoPIN) 1 mg TID PRN PO 06/01/17 17:45 (Zofran Odt) 8 mg TIDAC PO 06/02/17 08:00 06/02/17 12:23 (Vitamin D3) 3,000 units DAILY PO 06/01/17 18:00 06/01/17 22:33 (Nephrocaps) 1 cap DAILY PO 06/01/17 18:00 06/02/17 09:00 (Tylenol - Codeine 120-12 Liq) 5 ml Q6H PRN PO 06/01/17 18:00 (Hycet 325-7.5 Mg Liq) 15 ml Q6H PRN PO 06/02/17 10:30 06/02/17 14:06 A/P Problem List: (1) PNA (pneumonia) ICD Code: J18.9 - Pneumonia, unspecified organism (2) Hypoxia ICD Code: R09.02 - Hypoxemia (3) Renal insufficiency ICD Code: N28.9 - Disorder of kidney and ureter, unspecified (4) Chronic back pain ICD Code: M54.9 - Dorsalgia, unspecified; G89.29 - Other chronic pain Assessment and Plan 61-year-old female with a PMH of Bipolar Disorder, COPD, HTN, GERD and h/o Gastric Sleeve who was referred to the ER by Dr. Barrientos for eval of SOB and episode of hypoxia. Underwent Gastric Sleeve 05/13/[address] Barrientos, had some weakness post-op and was sent to Rehab. States while at Rehab today had significant SOB, seen by Dr. Barrientos and sent to ER for further eval. PNA: presented with cough, SOB, with episode of hypoxia while at Dr. Barrientos's office. -Influenza negative -Blood cultures with NGTD -CXR images reviewed, shows left basilar consolidation -CTA Pulm images reviewed, negative for PE, but shows consolidation LLL and RLL -Continue antibiotics with IV Cefepime and Azithro -check Sputum Culture, Urinary Legionella/Pneumococcal Antigens -Continue DuoNeb prn, Incentive Spirometry, Acapella -Patient improving, however not yet ready for discharge Hypoxia: h/o COPD, on O2 intermittently at home, O2 sat 90-91% on RA while in ER. Suspect secondary to pneumonia with underlying COPD. -continue O2 as needed, monitor -continue aggressive pulmonary toilet as above ANASTASIIA: Creatinine 1.36, previously 0.81 on 05/15/17 -Give IVF for hydration, repeat labs in a.m. Chronic Back Pain: chronic. patient requesting pain meds be restarted -will continue pain control with [place] prn -outpatient f/up Recent Bariatric Surgery: patient is s/p recent gastric sleeve surgery with Dr. Barrientos -continue pain control -outpatient f/up with Dr. Barrientos Transaminitis: LFTs previously normal in 2013 -possibly medication side effect, patient on multiple psychiatric medications as well as statin -repeat CMP in the am, outpatient f/up DVT Prophylaxis: SCD/Teds. Heparin sq. Discharge Planning Patient does not feel ready for discharge yet. Hopefully discharge in 1-2 days. Jessica Givens PA-C Jun 02, 2017 10:24 am
[2017-06-02] MEDS: LEVOTHYROXINE SODIUM 88 MCG TAB PO SCH (11:44)
[2017-06-02] MEDS: SODIUM CHLOR 0.9% 1000 ML INJ 1,000 ML IV SCH ×2 (11:45→14:06)
[2017-06-02] MEDS: MONTELUKAST SODIUM 10 MG TAB PO SCH (11:45)
[2017-06-02] MEDS: carBAMazepine 200 MG TAB PO SCH ×3 (11:46→21:43)
[2017-06-02] MEDS: FUROSEMIDE 20 MG TAB PO SCH (11:47)
[2017-06-02] MEDS: CHOLECALCIFEROL (VIT D3) 1000 UNIT TAB PO SCH (11:49)
[2017-06-02] MEDS: QUEtiapine FUMARATE 200 MG TAB PO SCH ×2 (11:50→21:39)
[2017-06-02] MEDS: METOPROLOL TARTRATE 50 MG TAB PO SCH ×2 (11:51→21:40)
[2017-06-02] MEDS: PANTOPRAZOLE SOD 40 MG DELAYED RELEASE TAB PO SCH (11:52)
[2017-06-02] MEDS: DOCUSATE SODIUM 50 MG/SENNA 8.6 MG TAB PO SCH ×2 (11:52→21:38)
[2017-06-02] MEDS: PRAVASTATIN SOD 40 MG TAB PO SCH (11:52)
[2017-06-02] MEDS: BUDESONIDE-FORMOTEROL 160/4.5 MCG INHALER INH SCH ×2 (11:54→21:35)
[2017-06-02] MEDS: SODIUM CHLORIDE 0.9% FLUSH 10 ML FLUSH IV FLUSH SCH ×2 (11:55→21:00)
[2017-06-02 12:00] VITALS: BP 148/76; PULSE 60; RESP 20; TEMP 98.2; O2SAT 94
[2017-06-02] MEDS: ONDANSETRON ODT 4 MG TAB PO SCH ×3 (12:00→15:47)
[2017-06-02] MEDS: clonazePAM 1 MG TAB PO SCH (12:22)
[2017-06-02] MEDS: NYSTATIN 100,000 U/GM PWD 15 GM BTL TOPICAL SCH ×3 (12:23→20:13)
[2017-06-02] MEDS: FLUTICASONE PROPIONATE 50 MCG/ACT 16 GM NASAL SPRAY NASAL SCH (14:02)
[2017-06-02] MEDS: ACETAMINOPHEN 325MG/HYDROcodone 7.5MG/15ML UDC PO PRN ×2 (14:06→21:37)
[2017-06-02 16:35] VITALS: BP 120/74; PULSE 56; RESP 20; TEMP 98; O2SAT 95
[2017-06-02 20:08] VITALS: BP 117/79; PULSE 72; RESP 18; TEMP 96.4; O2SAT 92
[2017-06-02] MEDS: LATANOPROST 0.005% OPHT SOLN 2.5 ML BTL EACH EYE SCH ×2 (21:35)
[2017-06-02] MEDS: clonazePAM 1 MG TAB PO PRN (21:39)
[2017-06-02] MEDS: DOXEPIN HCL 50 MG CAP PO SCH (21:43)
[2017-06-02] MEDS: HEPARIN SODIUM - SQ 10,000 UNITS/ML VIAL SQ SCH (21:44)
[2017-06-03] MEDS: SODIUM CHLOR 0.9% 1000 ML INJ 1,000 ML IV SCH ×2 (02:34→15:31)
[2017-06-03 04:13] VITALS: BP 111/55; PULSE 54; RESP 19; TEMP 96.1; O2SAT 95
[2017-06-03 04:38] LABS: AUTOMATED NEUTROPHIL # 3.2 TH/MM3 (1.8-7.7); BASOPHIL # 0.1 TH/MM3 (0-0.2); BASOPHIL % 0.8 % (0.0-2.0); EOSINOPHIL # 0.5 TH/MM3 (0-0.4); EOSINOPHIL % 6.7 % (0.0-4.0); HEMATOCRIT 31.2 % (35.0-46.0); HEMOGLOBIN 10.2 GM/DL (11.6-15.3); LYMPH % 39.1 % (9.0-44.0); LYMPHOCYTE # 2.7 TH/MM3 (1.0-4.8); MEAN CELL VOLUME 87.3 FL (80.0-100.0); MEAN CORPUSCULAR HEMOGLOBIN 28.6 PG (27.0-34.0); MEAN CORPUSCULAR HGB CONC 32.7 % (32.0-36.0); MEAN PLATELET VOLUME 8.2 FL (7.0-11.0); MONO % 6.8 % (0.0-8.0); MONOCYTE # 0.5 TH/MM3 (0-0.9); NEUT % 46.6 % (16.0-70.0); PLATELET COUNT 282 TH/MM3 (150-450); RED BLOOD COUNT 3.57 MIL/MM3 (4.00-5.30); RED CELL DISTRIBUTION WIDTH 14.7 % (11.6-17.2); WHITE BLOOD COUNT 6.8 TH/MM3 (4.0-11.0)
[2017-06-03 04:51] LABS: ALBUMIN 2.6 GM/DL (3.4-5.0); ALKALINE PHOSPHATASE 143 U/L (45-117); ALT (GPT) 28 U/L (10-53); AST (GOT) 16 U/L (15-37); BICARBONATE 28.4 MEQ/L (21.0-32.0); BLOOD UREA NITROGEN 16 MG/DL (7-18); CALCIUM 7.8 MG/DL (8.5-10.1); CHLORIDE 109 MEQ/L (98-107); CREATININE 0.79 MG/DL (0.50-1.00); GLOMERULAR FILTRATION RATE 74 ML/MIN (>89); GLUCOSE,RANDOM 82 MG/DL (74-106); SODIUM (NA) 144 MEQ/L (136-145); TOTAL BILIRUBIN ADULT 0.2 MG/DL (0.2-1.0); TOTAL PROTEIN 5.8 GM/DL (6.4-8.2)
[2017-06-03] MEDS: LEVOTHYROXINE SODIUM 88 MCG TAB PO SCH (04:52)
[2017-06-03] MEDS: ACETAMINOPHEN 325MG/HYDROcodone 7.5MG/15ML UDC PO PRN ×3 (04:53→18:06)
[2017-06-03 07:29] VITALS: BP 101/57; PULSE 60; RESP 18; TEMP 98.7; O2SAT 91
[2017-06-03 08:03] VITALS: O2SAT 94
[2017-06-03] MEDS: REMOVE OLD LIDOCAINE PATCH T-DERMAL SCH (09:00)
[2017-06-03] MEDS: DOCUSATE SODIUM 50 MG/SENNA 8.6 MG TAB PO SCH ×2 (09:06→21:29)
[2017-06-03] MEDS: carBAMazepine 200 MG TAB PO SCH (09:07)
[2017-06-03] MEDS: FUROSEMIDE 20 MG TAB PO SCH (09:07)
[2017-06-03] MEDS: ONDANSETRON ODT 4 MG TAB PO SCH ×3 (09:07→15:31)
[2017-06-03] MEDS: PRAVASTATIN SOD 40 MG TAB PO SCH (09:08)
[2017-06-03] MEDS: guaiFENesin E.R. 600 MG TAB PO SCH ×2 (09:09→21:29)
[2017-06-03] MEDS: PANTOPRAZOLE SOD 40 MG DELAYED RELEASE TAB PO SCH (09:09)
[2017-06-03] MEDS: QUEtiapine FUMARATE 200 MG TAB PO SCH ×2 (09:09→21:30)
[2017-06-03] MEDS: METOPROLOL TARTRATE 50 MG TAB PO SCH ×2 (09:09→21:29)
[2017-06-03] MEDS: CHOLECALCIFEROL (VIT D3) 1000 UNIT TAB PO SCH (09:10)
[2017-06-03] MEDS: BUDESONIDE-FORMOTEROL 160/4.5 MCG INHALER INH SCH ×2 (09:11→21:31)
[2017-06-03] MEDS: SODIUM CHLORIDE 0.9% FLUSH 10 ML FLUSH IV FLUSH SCH ×2 (09:11→21:00)
[2017-06-03] MEDS: FLUTICASONE PROPIONATE 50 MCG/ACT 16 GM NASAL SPRAY NASAL SCH (09:11)
[2017-06-03] MEDS: VITAMIN B CMPLX/VITC/FOLIC AC CAP PO SCH (09:14)
[2017-06-03] MEDS: MONTELUKAST SODIUM 10 MG TAB PO SCH (09:14)
[2017-06-03] MEDS: NYSTATIN 100,000 U/GM PWD 15 GM BTL TOPICAL SCH ×3 (09:15→17:58)
[2017-06-03] MEDS: HEPARIN SODIUM - SQ 10,000 UNITS/ML VIAL SQ SCH ×2 (09:15→21:30)
[2017-06-03] MEDS: ACETAMINOPHEN/CODEINE ELIX 120 MG/12 MG/5 ML CUP PO PRN ×2 (09:22→15:34)
[2017-06-03] MEDS: clonazePAM 1 MG TAB PO PRN ×2 (09:22→17:54)
[2017-06-03] MEDS: CEFEPIME INJ 1,000 MG in SODIUM CHLORIDE 0.9% INJ 100 ML IV SCH ×2 (11:47→22:34)
[2017-06-03 13:04] VITALS: BP 103/70; PULSE 61; RESP 18; TEMP 98; O2SAT 92
[2017-06-03] MEDS: LIDOCAINE HCL 5% PATCH T-DERMAL SCH (15:34)
[2017-06-03 16:27] VITALS: BP 123/85; PULSE 64; RESP 18; TEMP 98.7; O2SAT 92
--- NOTE | 2017-06-03 19:03 | HHI.PR ---
Subjective Remarks Seen today around 9 AM. Since that shortness of breath continue. Reports pain all over. She says that she has been evaluated for sleep apnea in the past, and evaluation negative. Objective Vital Signs Date Time Temp Pulse Resp B/P (MAP) Pulse Ox O2 Delivery O2 Flow Rate FiO2 06/03/17 16:27 98.7 64 18 123/85 (98) 92 06/03/17 13:04 98.0 61 18 103/70 (81) 92 06/03/17 08:03 94 21 06/03/17 07:29 98.7 60 18 101/57 (72) 91 06/03/17 04:13 96.1 54 19 111/55 (73) 95 06/02/17 23:52 Nasal Cannula 2.50 06/02/17 20:08 96.4 72 18 117/79 (92) 92 I/O 06/02/17 06/02/17 06/02/17 06/03/17 06/03/17 06/03/17 07:00 15:00 23:00 07:00 15:00 23:00 Intake Total 800 ml 240 ml Balance 800 ml 240 ml Intake Oral 800 ml 240 ml # Voids 3 1 3 Result Diagram: 06/03/17 0400 06/03/17 0400 Objective Remarks GENERAL: Obese 61-year-old female. Some shortness of breath while talking. Alert and oriented 3. SKIN: Warm and dry. HEAD: Normocephalic. EYES: No scleral icterus. No injection or drainage. NECK: Supple, trachea midline. No JVD. CARDIOVASCULAR: Regular rate and rhythm without murmurs, gallops, or rubs. RESPIRATORY: Breath sounds equal bilaterally. No accessory muscle use. GASTROINTESTINAL: Abdomen soft, non-tender, nondistended. MUSCULOSKELETAL: No cyanosis, or edema. BACK: Nontender without obvious deformity. No CVA tenderness. A/P Assessment and Plan 61-year-old female with a PMH of Bipolar Disorder, COPD, HTN, GERD and h/o Gastric Sleeve who was referred to the ER by Dr. Barrientos for eval of SOB and episode of hypoxia. Underwent Gastric Sleeve 05/13/[address] Barrientos, had some weakness post-op and was sent to Rehab. States while at Rehab today had significant SOB, seen by Dr. Barrientos and sent to ER for further eval. //PNA: presented with cough, SOB, with episode of hypoxia while at Dr. Barrientos's office. -Influenza negative -Blood cultures with NGTD -CXR images reviewed, shows left basilar consolidation -CTA Pulm images reviewed, negative for PE, but shows consolidation LLL and RLL -Continue antibiotics with IV Cefepime and Azithro -check Sputum Culture, Urinary Legionella/Pneumococcal Antigens -Continue DuoNeb prn, Incentive Spirometry, Acapella -Patient improving, however not yet ready for discharge = Patient likely with obesity hypoventilation syndrome/obstructive sleep apnea. Decrease sedating medications. //Hypoxia: h/o COPD, on O2 intermittently at home, O2 sat 90-91% on RA while in ER. Suspect secondary to pneumonia with underlying COPD. -continue O2 as needed, monitor -continue aggressive pulmonary toilet as above = Decrease sedating medications. //ANASTASIIA: Creatinine 1.36, previously 0.81 on 05/15/17 -Give IVF for hydration, repeat labs in a.m. = Resolved. //Chronic Back Pain: chronic. patient requesting pain meds be restarted -will continue pain control with [place] prn -outpatient f/up = Limit narcotics. Start Lidoderm patch for back pain. //Recent Bariatric Surgery: patient is s/p recent gastric sleeve surgery with Dr. Barrientos -continue pain control -outpatient f/up with Dr. Barrientos //Transaminitis: LFTs previously normal in 2013 -possibly medication side effect, patient on multiple psychiatric medications as well as statin -repeat CMP in the am, outpatient f/up = Much improved. Alk phos slightly elevated at 143. //DVT Prophylaxis: SCD/Teds. Heparin sq. Discharge Planning plan Discharge back to SNF tomorrow. Aftab Childers MD Jun 03, 2017 19:03
[2017-06-03 20:55] VITALS: BP 122/81; PULSE 76; RESP 16; TEMP 98.2; O2SAT 93
[2017-06-03] MEDS: DOXEPIN HCL 50 MG CAP PO SCH (21:28)
[2017-06-03] MEDS: clonazePAM 1 MG TAB PO SCH (21:29)
[2017-06-03] MEDS: LATANOPROST 0.005% OPHT SOLN 2.5 ML BTL EACH EYE SCH (21:31)
[2017-06-03] MEDS: AZITHROMYCIN INJ 500 MG in SODIUM CHLOR 0.9% 250 ML INJ 250 ML IV SCH (23:12)
[2017-06-04] MEDS: clonazePAM 1 MG TAB PO PRN (03:23)
[2017-06-04] MEDS: ACETAMINOPHEN 325MG/HYDROcodone 7.5MG/15ML UDC PO PRN ×2 (03:23→20:18)
[2017-06-04] MEDS: LEVOTHYROXINE SODIUM 88 MCG TAB PO SCH (05:12)
[2017-06-04 05:34] VITALS: BP 101/56; PULSE 61; RESP 16; TEMP 98.6; O2SAT 91
[2017-06-04] MEDS: guaiFENesin E.R. 600 MG TAB PO SCH ×2 (08:44→20:10)
[2017-06-04] MEDS: LIDOCAINE HCL 5% PATCH T-DERMAL SCH (08:44)
[2017-06-04] MEDS: ONDANSETRON ODT 4 MG TAB PO SCH ×3 (08:45→16:38)
[2017-06-04] MEDS: PANTOPRAZOLE SOD 40 MG DELAYED RELEASE TAB PO SCH (08:45)
[2017-06-04] MEDS: HEPARIN SODIUM - SQ 10,000 UNITS/ML VIAL SQ SCH ×2 (08:45→20:09)
[2017-06-04] MEDS: MONTELUKAST SODIUM 10 MG TAB PO SCH (08:45)
[2017-06-04] MEDS: DOCUSATE SODIUM 50 MG/SENNA 8.6 MG TAB PO SCH ×2 (08:45→20:10)
[2017-06-04] MEDS: CHOLECALCIFEROL (VIT D3) 1000 UNIT TAB PO SCH (08:46)
[2017-06-04] MEDS: PRAVASTATIN SOD 40 MG TAB PO SCH (08:46)
[2017-06-04] MEDS: VITAMIN B CMPLX/VITC/FOLIC AC CAP PO SCH (08:48)
[2017-06-04] MEDS: METOPROLOL TARTRATE 50 MG TAB PO SCH ×2 (08:49→20:10)
[2017-06-04] MEDS: carBAMazepine 200 MG TAB PO SCH (08:49)
[2017-06-04] MEDS: FUROSEMIDE 20 MG TAB PO SCH (08:49)
[2017-06-04] MEDS: BUDESONIDE-FORMOTEROL 160/4.5 MCG INHALER INH SCH ×2 (08:52→20:08)
[2017-06-04] MEDS: QUEtiapine FUMARATE 200 MG TAB PO SCH ×2 (08:52→20:09)
[2017-06-04] MEDS: SODIUM CHLORIDE 0.9% FLUSH 10 ML FLUSH IV FLUSH SCH ×2 (08:53→20:10)
[2017-06-04] MEDS: FLUTICASONE PROPIONATE 50 MCG/ACT 16 GM NASAL SPRAY NASAL SCH (08:53)
[2017-06-04] MEDS: NYSTATIN 100,000 U/GM PWD 15 GM BTL TOPICAL SCH ×3 (08:53→16:38)
[2017-06-04] MEDS: REMOVE OLD LIDOCAINE PATCH T-DERMAL SCH (09:00)
[2017-06-04 09:24] VITALS: BP 151/94; PULSE 60; RESP 16; TEMP 97.9; O2SAT 95
[2017-06-04] MEDS: ACETAMINOPHEN/CODEINE ELIX 120 MG/12 MG/5 ML CUP PO PRN (09:43)
--- NOTE | 2017-06-04 10:25 | RADRPT ---
EXAM DATE/TIME: 06/04/2017 10:03 [facility] COMPARISON: CHEST SINGLE AP, May 17, 2017, 13:55. INDICATIONS : Congestion. MEDICAL HISTORY : Chronic obstructive pulmonary disease. SURGICAL HISTORY : Hysterectomy. Cholecystectomy. Gastric sleeve, bilateral hip replacements ENCOUNTER: Subsequent ACUITY: 1 day PAIN SCORE: 0/10 LOCATION: Bilateral chest FINDINGS: A single view of the chest demonstrates cardiomegaly. Mild basilar atelectasis. No effusion or pneumo thorax. CONCLUSION: 1. Cardiomegaly with mild basilar atelectasis. Pete Mathew MD on June 04, 2017 at 10:21 Board Certified Radiologist. This report was verified electronically.
[2017-06-04] MEDS ORDERED: POLYETHYLENE GLYCOL 17 GM PKG PO ONE (11:00)
--- NOTE | 2017-06-04 12:30 | HHI.PR ---
Subjective Remarks Follow-up on patient with pneumonia. Patient states that her breathing has actually gotten worse since she's been here. She states she has significant congestion and cough with yellowish sputum production and an episode of hemoptysis yesterday. She complains of nausea and denies any vomiting. She denies any complaints of chest pain. States she is severely constipated and has not had a bowel movement in 3 days. She denies any fever or chills. Objective Vitals Vital Signs Date Time Temp Pulse Resp B/P (MAP) Pulse Ox O2 Delivery O2 Flow Rate FiO2 06/04/17 09:24 97.9 60 16 151/94 (113) 95 06/04/17 05:34 98.6 61 16 101/56 (71) 91 06/04/17 00:00 Nasal Cannula 3.00 06/03/17 20:55 98.2 76 16 122/81 (95) 93 06/03/17 16:27 98.7 64 18 123/85 (98) 92 06/03/17 13:04 98.0 61 18 103/70 (81) 92 I/O 06/03/17 06/03/17 06/03/17 06/04/17 06/04/17 06/04/17 07:00 15:00 23:00 07:00 15:00 23:00 Intake Total 240 ml 1350 ml Balance 240 ml 1350 ml Intake Oral 240 ml IV Total 1350 ml # Voids 3 Result Diagram: 06/03/17 0400 06/03/17 [address] Angiography 05/31/176 Signed Impressions: Service Date/Time: Thursday, June 01, 2017 00:06 - CONCLUSION: 1. No evidence of pulmonary embolism. 2. Areas of consolidation in the left lower lobe and milder consolidation in the right lower lobe most characteristic of pneumonia. Maxwell Blanton MD Chest X-Ray 05/31/17 0000 Signed Impressions: Service Date/Time: Wednesday, May 31, 2017 18:44 - CONCLUSION: 1. Left basilar consolidation. Differential diagnosis includes pneumonia. Right basilar atelectasis. Cardiomegaly. Pete Mathew MD Objective Remarks GENERAL: Well-nourished, well-developed obese patient in NAD. Awake and alert. SKIN: Warm and dry. No rash. HEAD: Normocephalic. Atraumatic. EYES: EOMI. No scleral icterus. No injection or drainage. ENT: No nasal bleeding or discharge. Mucous membranes pink and moist. NECK: Trachea midline. CARDIOVASCULAR: Regular rate and rhythm. S1, S2 noted. No murmur appreciated. RESPIRATORY: No accessory muscle use. Diminished but clear to auscultation. Breath sounds equal bilaterally. GASTROINTESTINAL: Abdomen soft, non-tender, nondistended. Normoactive bowel sounds x4. MUSCULOSKELETAL: No obvious deformities. Extremities without clubbing, cyanosis , or edema. NEUROLOGICAL: Awake and alert. No obvious cranial nerve deficits. Able to move all extremities spontaneously. No focal neurologic findings appreciated.. Normal speech. PSYCHIATRIC: Appropriate mood and affect; insight and judgment normal. Medications and IVs Current Medications Medications (Trade) Dose Ordered Sig/Chemo Route Start Time Stop Time Status Last Admin Azithromycin 500 mg/Sodium Chloride 250 ml @ 250 mls/hr Q24H IV 06/01/17 23:00 06/03/17 23:12 Cefepime HCl 1000 mg/Sodium Chloride 100 ml @ 200 mls/hr Q12H IV 06/01/17 11:00 06/04/17 13:12 (Duoneb Neb) 1 ampule Q4HR NEB PRN NEB 06/01/17 00:30 (NS Flush) 2 ml UNSCH PRN IV FLUSH 06/01/17 00:30 (NS Flush) 2 ml BID IV FLUSH 06/01/17 09:00 06/04/17 08:53 (Tylenol) 650 mg Q6H PRN PO 06/01/17 00:30 (Britt-Colace) 1 tab BID PO 06/01/17 09:00 06/04/17 08:45 (Milk Of Magnesia Liq) 30 ml Q12H PRN PO 06/01/17 00:30 (Senokot) 17.2 mg Q12H PRN PO 06/01/17 00:30 (Dulcolax Supp) 10 mg DAILY PRN RECTAL 06/01/17 00:30 (Lactulose Liq) 30 ml DAILY PRN PO 06/01/17 00:30 (TEGretol) 100 mg DAILY PO 06/01/17 09:00 06/04/17 08:49 (KlonoPIN) 1 mg HS PO 06/01/17 21:00 06/03/17 21:29 (SINEquan) 100 mg HS PO 06/01/17 21:00 06/03/17 21:28 (Lasix) 20 mg DAILY PO 06/01/17 09:00 06/04/17 08:49 (Xalatan 0.005% Opth Soln) 1 drop HS EACH EYE 06/01/17 21:00 06/03/17 21:31 (Synthroid) 88 mcg DAILY@0600 PO 06/01/17 06:00 06/04/17 05:12 (Lopressor) 50 mg BID PO 06/01/17 09:00 06/04/17 08:49 (Singulair) 10 mg DAILY PO 06/01/17 09:00 06/04/17 08:45 (Mycostatin Powder) 1 applic TID TOPICAL 06/01/17 09:00 06/04/17 13:13 (Protonix) 40 mg DAILY PO 06/01/17 09:00 06/04/17 08:45 (Pravachol) 40 mg DAILY PO 06/01/17 09:00 06/04/17 08:46 (SEROquel) 200 mg DAILY PO 06/01/17 09:00 06/04/17 08:52 (Requip) 0.5 mg HS PO 06/01/17 21:00 06/03/17 21:30 Patient Own Medication PT OWN MED: (Cyclosporine O... BID EACH EYE 06/01/17 09:00 Future Hold (Flonase Reinaldo Spr) 1 spray DAILY NASAL 06/01/17 09:00 06/04/17 08:53 (Symbicort 160-4.5 Mcg Inh) 1 puff BID INH 06/01/17 09:00 06/04/17 08:52 (SEROquel) 400 mg HS PO 06/01/17 21:00 06/03/17 21:30 (Pill Splitter) 1 ea UNSCH PRN OTHER 06/01/17 00:45 (KlonoPIN) 1 mg TID PRN PO 06/01/17 17:45 06/04/17 03:23 (Zofran Odt) 8 mg TIDAC PO 06/02/17 08:00 06/04/17 13:12 (Vitamin D3) 3,000 units DAILY PO 06/01/17 18:00 06/01/17 22:33 (Nephrocaps) 1 cap DAILY PO 06/01/17 18:00 06/04/17 08:48 (Tylenol - Codeine 120-12 Liq) 5 ml Q6H PRN PO 06/01/17 18:00 06/04/17 09:43 (Hycet 325-7.5 Mg Liq) 15 ml Q6H PRN PO 06/02/17 10:30 06/04/17 03:23 (Heparin Inj) 5,000 units Q12HR SQ 06/02/17 21:00 06/04/17 08:45 (Mucinex Er) 600 mg BID PO 06/03/17 09:00 06/04/17 08:44 (Lidoderm 5% Patch.12 Hr) 1 patch DAILY T-DERMAL 06/03/17 15:15 06/04/17 08:44 Miscellaneous Information 1 Q24H T-DERMAL 06/03/17 09:00 A/P Problem List: (1) PNA (pneumonia) ICD Code: J18.9 - Pneumonia, unspecified organism (2) Hypoxia ICD Code: R09.02 - Hypoxemia (3) Renal insufficiency ICD Code: N28.9 - Disorder of kidney and ureter, unspecified (4) Chronic back pain ICD Code: M54.9 - Dorsalgia, unspecified; G89.29 - Other chronic pain Assessment and Plan 61-year-old female with a PMH of Bipolar Disorder, COPD, HTN, GERD and h/o Gastric Sleeve who was referred to the ER by Dr. Barrientos for eval of SOB and episode of hypoxia. Underwent Gastric Sleeve 05/13/[address] Barrientos, had some weakness post-op and was sent to Rehab. States while at Rehab today had significant SOB, seen by Dr. Barrientos and sent to ER for further eval. //PNA, multilobar: presented with cough, SOB, with episode of hypoxia while at Dr. Barrientos's office. -Influenza negative -Blood cultures with NGTD -CXR images reviewed, shows left basilar consolidation -CTA Pulm images reviewed, negative for PE, but shows consolidation LLL and RLL -Continue antibiotics with IV Cefepime and Azithro -Sputum Culture normal respiratory anna -Urinary Legionella/Pneumococcal Antigens negative -Continue DuoNeb prn, Incentive Spirometry, Acapella = Patient likely with obesity hypoventilation syndrome/obstructive sleep apnea. Decrease sedating medications. =06/04 patient complaining of worsening dyspnea. Persistent cough. Now on 3LNC with O2 sats 91%. Obtain CXR. Increase Mucinex dose. Schedule Duonebs. //Hypoxia: h/o COPD, on O2 intermittently at home, O2 sat 90-91% on RA while in ER. Suspect secondary to pneumonia with underlying COPD. -continue O2 as needed, monitor -continue aggressive pulmonary toilet as above = Decrease sedating medications. //ANASTASIIA: Creatinine 1.36, previously 0.81 on 05/15/17 -Give IVF for hydration, repeat labs in a.m. = Resolved. //Chronic Back Pain: chronic. patient requesting pain meds be restarted -will continue pain control with [place] prn -outpatient f/up = Limit narcotics. Start Lidoderm patch for back pain. //Recent Bariatric Surgery: patient is s/p recent gastric sleeve surgery with Dr. Barrientos -continue pain control -outpatient f/up with Dr. Barrientos //Transaminitis: LFTs previously normal in 2013 -possibly medication side effect, patient on multiple psychiatric medications as well as statin -repeat CMP in the am, outpatient f/up = Much improved. Alk phos slightly elevated at 143. //Constipation -no BM in 3 days -continue on Britt Colace -add Miralax 17gm daily //DVT Prophylaxis: SCD/Teds. Heparin sq. Discharge Planning Discharge pending improvement in clinical course. Case management assisting with discharge planning. Patient has been discharged from [facility] and cannot return. Lisa Guallpa Jun 04, 2017 12:30
[2017-06-04 12:43] VITALS: BP 112/59; PULSE 57; RESP 18; TEMP 98.2; O2SAT 97
[2017-06-04] MEDS: CEFEPIME INJ 1,000 MG in SODIUM CHLORIDE 0.9% INJ 100 ML IV SCH ×2 (13:12→23:55)
[2017-06-04] MEDS ORDERED: AZIT250T3 PO (13:42)
[2017-06-04] MEDS ORDERED: TEGR200T PO (13:42)
--- NOTE | 2017-06-04 13:43 | HHI.DS ---
Discharge Summary Admission Date Jun 01, 2017 at 00:18 Admitting Diagnosis [facility] PNA WITH HYPOXEMIA, POST GASTRECTOMY SLEEVE (1) PNA (pneumonia) ICD Code: J18.9 - Pneumonia, unspecified organism (2) Hypoxia ICD Code: R09.02 - Hypoxemia (3) Renal insufficiency ICD Code: N28.9 - Disorder of kidney and ureter, unspecified (4) Chronic back pain ICD Code: M54.9 - Dorsalgia, unspecified; G89.29 - Other chronic pain Brief History - From Admission This is a 61-year-old female with a PMH of Bipolar Disorder, COPD, HTN, GERD and h/o Gastric Sleeve who was referred to the ER by Dr. Barrientos for eval of SOB and episode of hypoxia. Underwent Gastric Sleeve 05/13/[address] Barrientos, had some weakness post-op and was sent to Rehab. States while at Rehab today had significant SOB, seen by Dr. Barrientos and sent to ER for further eval. Denies fever or chills. On arrival, BP 102/59, HR 65, O2 sat 95% on 2L NC, Afebrile. While in ER, O2 sat 90-91% on RA. Noted to have some wheezing on exam, s/p DuoNeb w/ improvement. WBC 11.2. Creatinine 1.36, previously 0.81 on 05/15/17. CTA Pulm negative for PE, areas of consolidation left lower lobe and consolidation right lower lobe. S/p Cefepime/Zithro in ER. CBC/BMP: 06/03/17 0400 06/03/17 0400 Significant Findings Laboratory Tests Test 06/03/17 04:00 Red Blood Count 3.57 MIL/MM3 (4.00-5.30) Hemoglobin 10.2 GM/DL (11.6-15.3) Hematocrit 31.2 % (35.0-46.0) Eosinophils (%) (Auto) 6.7 % (0.0-4.0) Eosinophils # (Auto) 0.5 TH/MM3 (0-0.4) Total Protein 5.8 GM/DL (6.4-8.2) Albumin 2.6 GM/DL (3.4-5.0) Calcium Level 7.8 MG/DL (8.5-10.1) Alkaline Phosphatase 143 U/L (45-117) Chloride Level 109 MEQ/L (98-107) Estimat Glomerular Filtration Rate 74 ML/MIN (>89) PE at Discharge GENERAL: Well-nourished, well-developed obese patient in NAD. Awake and alert. SKIN: Warm and dry. No rash. HEAD: Normocephalic. Atraumatic. EYES: EOMI. No scleral icterus. No injection or drainage. ENT: No nasal bleeding or discharge. Mucous membranes pink and moist. NECK: Trachea midline. CARDIOVASCULAR: Regular rate and rhythm. S1, S2 noted. No murmur appreciated. RESPIRATORY: No accessory muscle use. Diminished but clear to auscultation. Breath sounds equal bilaterally. GASTROINTESTINAL: Abdomen soft, non-tender, nondistended. Normoactive bowel sounds x4. MUSCULOSKELETAL: No obvious deformities. Extremities without clubbing, cyanosis , or edema. NEUROLOGICAL: Awake and alert. No obvious cranial nerve deficits. Able to move all extremities spontaneously. No focal neurologic findings appreciated.. Normal speech. PSYCHIATRIC: Appropriate mood and affect; insight and judgment normal. Discharge Instructions Activities you can perform: See Additionl Instruction Other Activity Instructions: Per PT recommendations Lisa Guallpa Jun 04, 2017 13:43
[2017-06-04 19:29] VITALS: BP 154/79; PULSE 86; RESP 14; TEMP 97.8; O2SAT 98
[2017-06-04] MEDS: LATANOPROST 0.005% OPHT SOLN 2.5 ML BTL EACH EYE SCH (20:08)
[2017-06-04] MEDS: DOXEPIN HCL 50 MG CAP PO SCH (20:09)
[2017-06-04] MEDS: clonazePAM 1 MG TAB PO SCH (20:10)
[2017-06-04] MEDS: RESP: ALBUTEROL 2.5 MG/IPRATROPIUM 0.5 MG NEB (SCH) NEB (20:39)
[2017-06-04 20:45] VITALS: O2SAT 94
[2017-06-04] MEDS: MAGNESIUM HYDROXIDE SUSP 30 ML CUP PO PRN (22:08)
[2017-06-05] VITALS (8 sets, daily range): BP systolic 104–125; BP diastolic 55–80; PULSE 55–64; RESP 14–22; TEMP 96.2–98.6; O2SAT 91–96
[2017-06-05] MEDS: AZITHROMYCIN INJ 500 MG in SODIUM CHLOR 0.9% 250 ML INJ 250 ML IV SCH (00:38)
[2017-06-05] MEDS: ONDANSETRON ODT 4 MG TAB PO SCH ×3 (07:24→18:12)
[2017-06-05] MEDS: LEVOTHYROXINE SODIUM 88 MCG TAB PO SCH (07:24)
[2017-06-05] MEDS: RESP: ALBUTEROL 2.5 MG/IPRATROPIUM 0.5 MG NEB (SCH) NEB ×3 (08:00→21:19)
[2017-06-05 08:59] LABS: AUTOMATED NEUTROPHIL # 3.9 TH/MM3 (1.8-7.7); BASOPHIL % 0.6 % (0.0-2.0); EOSINOPHIL # 0.5 TH/MM3 (0-0.4); EOSINOPHIL % 7.5 % (0.0-4.0); HEMATOCRIT 34.3 % (35.0-46.0); HEMOGLOBIN 11.2 GM/DL (11.6-15.3); LYMPH % 28.6 % (9.0-44.0); MEAN CELL VOLUME 86.7 FL (80.0-100.0); MEAN CORPUSCULAR HEMOGLOBIN 28.2 PG (27.0-34.0); MEAN CORPUSCULAR HGB CONC 32.6 % (32.0-36.0); MEAN PLATELET VOLUME 8.1 FL (7.0-11.0); MONO % 7.4 % (0.0-8.0); MONOCYTE # 0.5 TH/MM3 (0-0.9); NEUT % 55.9 % (16.0-70.0); PLATELET COUNT 297 TH/MM3 (150-450); RED BLOOD COUNT 3.96 MIL/MM3 (4.00-5.30)
[2017-06-05] MEDS: REMOVE OLD LIDOCAINE PATCH T-DERMAL SCH (09:00)
[2017-06-05] MEDS: CHOLECALCIFEROL (VIT D3) 1000 UNIT TAB PO SCH (09:00)
[2017-06-05] MEDS ORDERED: BISACODYL 10 MG SUPP RECTAL ONE (09:15)
[2017-06-05 09:20] LABS: BICARBONATE 30.8 MEQ/L (21.0-32.0); CALCIUM 8.3 MG/DL (8.5-10.1); CREATININE 0.69 MG/DL (0.50-1.00)
--- NOTE | 2017-06-05 09:32 | HHI.PR ---
Subjective Remarks Follow-up on patient with pneumonia. Patient seen and examined. Patient sleeping soundly upon entrance into the room and upon waking immediately asked for her telephone so she can order her breakfast and asked for a pain pill. She reports persistent constipation and now states she's not had bowel movement in 6 days (yesterday it was 3 days). She continues to report that her breathing has not improved. She continues to complain of cough with sputum production. Shortness of breath is the same. She denies any chest pain. Denies any nausea vomiting or abdominal pain. She denies any fever or chills. Objective Vitals Vital Signs Date Time Temp Pulse Resp B/P (MAP) Pulse Ox O2 Delivery O2 Flow Rate FiO2 06/05/17 08:34 97.5 62 20 125/60 (81) 95 06/05/17 08:00 96 Nasal Cannula 3.00 06/05/17 05:13 98.6 64 14 113/55 (74) 96 06/05/17 00:18 98.0 56 14 113/61 (78) 96 06/04/17 20:45 94 Nasal Cannula 3.00 06/04/17 19:29 97.8 86 14 154/79 (104) 98 06/04/17 12:43 98.2 57 18 112/59 (76) 97 06/04/17 09:24 97.9 60 16 151/94 (113) 95 I/O 06/04/17 06/04/17 06/04/17 06/05/17 06/05/17 06/05/17 07:00 15:00 23:00 07:00 15:00 23:00 Intake Total 1350 ml 480 ml Balance 1350 ml 480 ml Intake Oral 480 ml IV Total 1350 ml # Voids 3 2 # Bowel Movements 0 1 Result Diagram: 06/05/17 0826 06/03/17 0400 Imaging Last Impressions Chest X-Ray 06/04/17 0000 Signed Impressions: Service Date/Time: Sunday, June 04, 2017 10:03 - CONCLUSION: 1. Cardiomegaly with mild basilar atelectasis. Pete Mathew MD CT Angiography 05/31/176 Signed Impressions: Service Date/Time: Thursday, June 01, 2017 00:06 - CONCLUSION: 1. No evidence of pulmonary embolism. 2. Areas of consolidation in the left lower lobe and milder consolidation in the right lower lobe most characteristic of pneumonia. Maxwell Blanton MD Objective Remarks GENERAL: Well-nourished, well-developed obese patient in NAD. Sleeping soundly but awakens easily to voice. Appears comfortable. SKIN: Warm and dry. No rash. HEAD: Normocephalic. Atraumatic. EYES: EOMI. No scleral icterus. No injection or drainage. ENT: No nasal bleeding or discharge. Mucous membranes pink and moist. NECK: Trachea midline. CARDIOVASCULAR: Regular rate and rhythm. S1, S2 noted. No murmur appreciated. RESPIRATORY: Nonlabored. Diminished but clear to auscultation. Breath sounds equal bilaterally. GASTROINTESTINAL: Abdomen soft, non-tender, nondistended. Normoactive bowel sounds x4. MUSCULOSKELETAL: No obvious deformities. Extremities without clubbing, cyanosis , or edema. NEUROLOGICAL: Awake and alert. No obvious cranial nerve deficits. Able to move all extremities spontaneously. No focal neurologic findings appreciated.. Normal speech. PSYCHIATRIC: Appropriate mood and affect; insight and judgment normal. Medications and IVs Current Medications Medications (Trade) Dose Ordered Sig/Chemo Route Start Time Stop Time Status Last Admin Azithromycin 500 mg/Sodium Chloride 250 ml @ 250 mls/hr Q24H IV 06/01/17 23:00 06/05/17 00:38 Cefepime HCl 1000 mg/Sodium Chloride 100 ml @ 200 mls/hr Q12H IV 06/01/17 11:00 06/04/17 23:55 (Duoneb Neb) 1 ampule Q4HR NEB PRN NEB 06/01/17 00:30 (NS Flush) 2 ml UNSCH PRN IV FLUSH 06/01/17 00:30 (NS Flush) 2 ml BID IV FLUSH 06/01/17 09:00 06/04/17 20:10 (Tylenol) 650 mg Q6H PRN PO 06/01/17 00:30 (Britt-Colace) 1 tab BID PO 06/01/17 09:00 06/04/17 20:10 (Milk Of Magnesia Liq) 30 ml Q12H PRN PO 06/01/17 00:30 06/04/17 22:08 (Senokot) 17.2 mg Q12H PRN PO 06/01/17 00:30 (Dulcolax Supp) 10 mg DAILY PRN RECTAL 06/01/17 00:30 (Lactulose Liq) 30 ml DAILY PRN PO 06/01/17 00:30 (TEGretol) 100 mg DAILY PO 06/01/17 09:00 06/04/17 08:49 (KlonoPIN) 1 mg HS PO 06/01/17 21:00 06/04/17 20:10 (SINEquan) 100 mg HS PO 06/01/17 21:00 06/04/17 20:09 (Lasix) 20 mg DAILY PO 06/01/17 09:00 06/04/17 08:49 (Xalatan 0.005% Opth Soln) 1 drop HS EACH EYE 06/01/17 21:00 06/04/17 20:08 (Synthroid) 88 mcg DAILY@0600 PO 06/01/17 06:00 06/05/17 07:24 (Lopressor) 50 mg BID PO 06/01/17 09:00 06/04/17 20:10 (Singulair) 10 mg DAILY PO 06/01/17 09:00 06/04/17 08:45 (Mycostatin Powder) 1 applic TID TOPICAL 06/01/17 09:00 06/04/17 13:13 (Protonix) 40 mg DAILY PO 06/01/17 09:00 06/04/17 08:45 (Pravachol) 40 mg DAILY PO 06/01/17 09:00 06/04/17 08:46 (SEROquel) 200 mg DAILY PO 06/01/17 09:00 06/04/17 08:52 (Requip) 0.5 mg HS PO 06/01/17 21:00 06/04/17 20:09 Patient Own Medication PT OWN MED: (Cyclosporine O... BID EACH EYE 06/01/17 09:00 Future Hold (Flonase Reinaldo Spr) 1 spray DAILY NASAL 06/01/17 09:00 06/04/17 08:53 (Symbicort 160-4.5 Mcg Inh) 1 puff BID INH 06/01/17 09:00 06/04/17 20:08 (SEROquel) 400 mg HS PO 06/01/17 21:00 06/04/17 20:09 (Pill Splitter) 1 ea UNSCH PRN OTHER 06/01/17 00:45 (KlonoPIN) 1 mg TID PRN PO 06/01/17 17:45 06/04/17 03:23 (Zofran Odt) 8 mg TIDAC PO 06/02/17 08:00 06/05/17 07:24 (Vitamin D3) 3,000 units DAILY PO 06/01/17 18:00 06/01/17 22:33 (Nephrocaps) 1 cap DAILY PO 06/01/17 18:00 06/04/17 08:48 (Tylenol - Codeine 120-12 Liq) 5 ml Q6H PRN PO 06/01/17 18:00 06/04/17 09:43 (Hycet 325-7.5 Mg Liq) 15 ml Q6H PRN PO 06/02/17 10:30 06/04/17 20:18 (Heparin Inj) 5,000 units Q12HR SQ 06/02/17 21:00 06/04/17 20:09 (Lidoderm 5% Patch.12 Hr) 1 patch DAILY T-DERMAL 06/03/17 15:15 06/04/17 08:44 Miscellaneous Information 1 Q24H T-DERMAL 06/03/17 09:00 (Miralax) 17 gm DAILY PO 06/05/17 09:00 (Duoneb Neb) 1 ampule Q6HR WHILE AWAKE NEB NEB 06/04/17 20:00 06/04/17 20:39 (Mucinex Er) 1,200 mg BID PO 06/04/17 21:00 06/04/17 20:10 A/P Problem List: (1) PNA (pneumonia) ICD Code: J18.9 - Pneumonia, unspecified organism (2) Hypoxia ICD Code: R09.02 - Hypoxemia (3) Renal insufficiency ICD Code: N28.9 - Disorder of kidney and ureter, unspecified (4) Chronic back pain ICD Code: M54.9 - Dorsalgia, unspecified; G89.29 - Other chronic pain Assessment and Plan 61-year-old female with a PMH of Bipolar Disorder, COPD, HTN, GERD and h/o Gastric Sleeve who was referred to the ER by Dr. Barrientos for eval of SOB and episode of hypoxia. Underwent Gastric Sleeve 05/13/[address] Barrientos, had some weakness post-op and was sent to Rehab. States while at Rehab today had significant SOB, seen by Dr. Barrientos and sent to ER for further eval. //PNA, multilobar: presented with cough, SOB, with episode of hypoxia while at Dr. Barrientos's office. -Influenza negative -Blood cultures with NGTD -CXR images reviewed, shows left basilar consolidation -CTA Pulm images reviewed, negative for PE, but shows consolidation LLL and RLL -On IV Cefepime and Azithro. -Sputum Culture normal respiratory anna -Urinary Legionella/Pneumococcal Antigens negative -Continue DuoNeb prn, Incentive Spirometry, Acapella = Patient likely with obesity hypoventilation syndrome/obstructive sleep apnea. Decrease sedating medications. =06/04 patient complaining of worsening dyspnea. Persistent cough. Now on 3LNC with O2 sats 91%. Obtain CXR. Increase Mucinex dose. Schedule Duonebs. =06/05 repeat CXR shows cardiomegaly with mild basilar atelectasis. De-escalate antibiotics. D/C IV Cefepime and Azithro. Continue on po Azithromycin. //Hypoxia: h/o COPD, on O2 intermittently at home, O2 sat 90-91% on RA while in ER. Suspect secondary to pneumonia with underlying COPD. -continue O2 as needed, monitor -continue aggressive pulmonary toilet as above = Decrease sedating medications. //ANASTASIIA: Creatinine 1.36, previously 0.81 on 05/15/17 -Give IVF for hydration, repeat labs in a.m. = Resolved. //Chronic Back Pain: chronic. patient requesting pain meds be restarted -will continue pain control with [place] prn -outpatient f/up = Limit narcotics. Start Lidoderm patch for back pain. //Recent Bariatric Surgery: patient is s/p recent gastric sleeve surgery with Dr. Barrientos //Deconditioned -continue pain control -outpatient f/up with Dr. Barrientos -PT recommends rehab. Patient unable to return to [place] she was discharged from that facility. Increase PT participation to daily. //Transaminitis: LFTs previously normal in 2013 -possibly medication side effect, patient on multiple psychiatric medications as well as statin -repeat CMP in the am, outpatient f/up = Much improved. Alk phos slightly elevated at 143. //Constipation -no BM in 3 days -continue on Britt Colace -continue Miralax 17gm daily -give Dulcolax suppository today //DVT Prophylaxis: SCD/Teds. Heparin sq. Discharge Planning CM assisting with discharge planning/SNF evaluation. Lisa Guallpa Jun 05, 2017 09:32
[2017-06-05] MEDS: HEPARIN SODIUM - SQ 10,000 UNITS/ML VIAL SQ SCH ×2 (09:44→22:05)
[2017-06-05] MEDS: LIDOCAINE HCL 5% PATCH T-DERMAL SCH (09:44)
[2017-06-05] MEDS: MONTELUKAST SODIUM 10 MG TAB PO SCH (09:44)
[2017-06-05] MEDS: PRAVASTATIN SOD 40 MG TAB PO SCH (09:45)
[2017-06-05] MEDS: carBAMazepine 200 MG TAB PO SCH (09:45)
[2017-06-05] MEDS: FUROSEMIDE 20 MG TAB PO SCH (09:45)
[2017-06-05] MEDS: guaiFENesin E.R. 600 MG TAB PO SCH ×2 (09:45→22:03)
[2017-06-05] MEDS: DOCUSATE SODIUM 50 MG/SENNA 8.6 MG TAB PO SCH ×2 (09:45→22:04)
[2017-06-05] MEDS: PANTOPRAZOLE SOD 40 MG DELAYED RELEASE TAB PO SCH (09:45)
[2017-06-05] MEDS: FLUTICASONE PROPIONATE 50 MCG/ACT 16 GM NASAL SPRAY NASAL SCH (09:46)
[2017-06-05] MEDS: QUEtiapine FUMARATE 200 MG TAB PO SCH ×2 (09:46→22:05)
[2017-06-05] MEDS: METOPROLOL TARTRATE 50 MG TAB PO SCH ×2 (09:47→22:03)
[2017-06-05] MEDS: SODIUM CHLORIDE 0.9% FLUSH 10 ML FLUSH IV FLUSH SCH ×2 (09:48→22:02)
[2017-06-05] MEDS: VITAMIN B CMPLX/VITC/FOLIC AC CAP PO SCH (09:48)
[2017-06-05] MEDS: BUDESONIDE-FORMOTEROL 160/4.5 MCG INHALER INH SCH ×2 (09:49→21:00)
[2017-06-05] MEDS: POLYETHYLENE GLYCOL 17 GM PKG PO SCH (09:49)
[2017-06-05] MEDS: NYSTATIN 100,000 U/GM PWD 15 GM BTL TOPICAL SCH ×3 (09:49→18:13)
[2017-06-05] MEDS: ACETAMINOPHEN 325MG/HYDROcodone 7.5MG/15ML UDC PO PRN ×2 (09:55→18:29)
[2017-06-05] MEDS: clonazePAM 1 MG TAB PO SCH (12:13)
[2017-06-05] MEDS: clonazePAM 1 MG TAB PO PRN (18:29)
[2017-06-05] MEDS: LATANOPROST 0.005% OPHT SOLN 2.5 ML BTL EACH EYE SCH (22:01)
[2017-06-05] MEDS: DOXEPIN HCL 50 MG CAP PO SCH (22:04)
[2017-06-06] MEDS: clonazePAM 1 MG TAB PO PRN ×2 (01:49→15:43)
[2017-06-06] MEDS: ACETAMINOPHEN 325MG/HYDROcodone 7.5MG/15ML UDC PO PRN ×2 (01:49→10:05)
[2017-06-06] MEDS: LEVOTHYROXINE SODIUM 88 MCG TAB PO SCH (06:17)
[2017-06-06 08:00] VITALS: BP 137/78; PULSE 59; RESP 20; TEMP 97.4; O2SAT 90
[2017-06-06] MEDS: RESP: ALBUTEROL 2.5 MG/IPRATROPIUM 0.5 MG NEB (SCH) NEB ×3 (08:04→20:18)
[2017-06-06 08:06] VITALS: O2SAT 90
[2017-06-06] MEDS: VITAMIN B CMPLX/VITC/FOLIC AC CAP PO SCH (09:00)
[2017-06-06] MEDS: REMOVE OLD LIDOCAINE PATCH T-DERMAL SCH (09:00)
[2017-06-06] MEDS: BUDESONIDE-FORMOTEROL 160/4.5 MCG INHALER INH SCH ×2 (09:00→21:00)
[2017-06-06] MEDS: CHOLECALCIFEROL (VIT D3) 1000 UNIT TAB PO SCH (09:00)
[2017-06-06] MEDS: FLUTICASONE PROPIONATE 50 MCG/ACT 16 GM NASAL SPRAY NASAL SCH ×2 (09:00→13:30)
[2017-06-06] MEDS: METOPROLOL TARTRATE 50 MG TAB PO SCH ×2 (09:47→21:21)
[2017-06-06] MEDS: guaiFENesin E.R. 600 MG TAB PO SCH ×2 (09:47→21:00)
[2017-06-06] MEDS: FUROSEMIDE 20 MG TAB PO SCH ×2 (09:47→09:53)
[2017-06-06] MEDS: ONDANSETRON ODT 4 MG TAB PO SCH ×3 (09:47→15:43)
[2017-06-06] MEDS: PANTOPRAZOLE SOD 40 MG DELAYED RELEASE TAB PO SCH ×2 (09:47→10:01)
[2017-06-06] MEDS: DOCUSATE SODIUM 50 MG/SENNA 8.6 MG TAB PO SCH ×2 (09:47→21:21)
[2017-06-06] MEDS: SODIUM CHLORIDE 0.9% FLUSH 10 ML FLUSH IV FLUSH SCH ×2 (09:51→21:00)
[2017-06-06] MEDS: PRAVASTATIN SOD 40 MG TAB PO SCH (09:52)
[2017-06-06] MEDS: carBAMazepine 200 MG TAB PO SCH (09:53)
[2017-06-06] MEDS: NYSTATIN 100,000 U/GM PWD 15 GM BTL TOPICAL SCH ×3 (09:54→18:00)
[2017-06-06] MEDS: HEPARIN SODIUM - SQ 10,000 UNITS/ML VIAL SQ SCH ×2 (09:55→21:22)
[2017-06-06] MEDS: AZITHROMYCIN 250 MG TAB PO SCH (09:56)
[2017-06-06] MEDS: MONTELUKAST SODIUM 10 MG TAB PO SCH (09:56)
[2017-06-06] MEDS: POLYETHYLENE GLYCOL 17 GM PKG PO SCH (09:56)
[2017-06-06] MEDS: LIDOCAINE HCL 5% PATCH T-DERMAL SCH (10:02)
[2017-06-06 12:00] VITALS: BP 142/84; PULSE 58; RESP 20; TEMP 98.1; O2SAT 94
[2017-06-06] MEDS: QUEtiapine FUMARATE 200 MG TAB PO SCH ×2 (13:29→21:00)
[2017-06-06] MEDS: ACETAMINOPHEN/CODEINE ELIX 120 MG/12 MG/5 ML CUP PO PRN (15:43)
[2017-06-06 16:00] VITALS: BP 128/78; PULSE 70; RESP 20; TEMP 97.1; O2SAT 91
--- NOTE | 2017-06-06 17:18 | HHI.PR ---
Subjective Remarks patient states she still feels very sob currently on 3 liters nasal canula Objective Vitals Vital Signs Date Time Temp Pulse Resp B/P (MAP) Pulse Ox O2 Delivery O2 Flow Rate FiO2 06/06/17 16:00 97.1 70 20 128/78 (95) 91 06/06/17 12:00 98.1 58 20 142/84 (103) 94 06/06/17 08:06 90 Nasal Cannula 3.00 06/06/17 08:00 97.4 59 20 137/78 (97) 90 06/05/17 21:23 91 Nasal Cannula 3.00 06/05/17 20:00 96.6 60 22 104/59 (74) 93 I/O 06/05/17 06/05/17 06/05/17 06/06/17 06/06/17 06/06/17 07:00 15:00 23:00 07:00 15:00 23:00 Intake Total 1440 ml Balance 1440 ml Intake Oral 1440 ml # Voids 2 4 # Bowel Movements 1 0 Result Diagram: 06/05/17 0826 06/05/17 0826 Imaging Last Impressions Chest X-Ray 06/04/17 0000 Signed Impressions: Service Date/Time: Sunday, June 04, 2017 10:03 - CONCLUSION: 1. Cardiomegaly with mild basilar atelectasis. Pete Mathew MD CT Angiography [id number] Signed Impressions: Service Date/Time: Thursday, June 01, 2017 00:06 - CONCLUSION: 1. No evidence of pulmonary embolism. 2. Areas of consolidation in the left lower lobe and milder consolidation in the right lower lobe most characteristic of pneumonia. Maxwell Blanton MD Objective Remarks AAOx3 NAD Good bilateral air movement, fine crackles at the bases. Abdomen is obese, soft, nontender No edema in lower extremities. Medications and IVs Current Medications Medications (Trade) Dose Ordered Sig/Chemo Route Start Time Stop Time Status Last Admin (Duoneb Neb) 1 ampule Q4HR NEB PRN NEB 06/01/17 00:30 (NS Flush) 2 ml UNSCH PRN IV FLUSH 06/01/17 00:30 (NS Flush) 2 ml BID IV FLUSH 06/01/17 09:00 06/06/17 09:51 (Tylenol) 650 mg Q6H PRN PO 06/01/17 00:30 (Britt-Colace) 1 tab BID PO 06/01/17 09:00 06/06/17 09:47 (Milk Of Magnesia Liq) 30 ml Q12H PRN PO 06/01/17 00:30 06/04/17 22:08 (Senokot) 17.2 mg Q12H PRN PO 06/01/17 00:30 (Dulcolax Supp) 10 mg DAILY PRN RECTAL 06/01/17 00:30 (Lactulose Liq) 30 ml DAILY PRN PO 06/01/17 00:30 (TEGretol) 100 mg DAILY PO 06/01/17 09:00 06/06/17 09:53 (KlonoPIN) 1 mg HS PO 06/01/17 21:00 06/05/17 12:13 (SINEquan) 100 mg HS PO 06/01/17 21:00 06/05/17 22:04 (Lasix) 20 mg DAILY PO 06/01/17 09:00 06/06/17 09:53 (Xalatan 0.005% Opth Soln) 1 drop HS EACH EYE 06/01/17 21:00 06/05/17 22:01 (Synthroid) 88 mcg DAILY@0600 PO 06/01/17 06:00 06/06/17 06:17 (Lopressor) 50 mg BID PO 06/01/17 09:00 06/06/17 09:47 (Singulair) 10 mg DAILY PO 06/01/17 09:00 06/06/17 09:56 (Mycostatin Powder) 1 applic TID TOPICAL 06/01/17 09:00 06/06/17 09:54 (Protonix) 40 mg DAILY PO 06/01/17 09:00 06/06/17 10:01 (Pravachol) 40 mg DAILY PO 06/01/17 09:00 06/06/17 09:52 (SEROquel) 200 mg DAILY PO 06/01/17 09:00 06/06/17 13:29 (Requip) 0.5 mg HS PO 06/01/17 21:00 06/05/17 22:03 Patient Own Medication PT OWN MED: (Cyclosporine O... BID EACH EYE 06/01/17 09:00 Future Hold (Flonase Reinaldo Spr) 1 spray DAILY NASAL 06/01/17 09:00 06/06/17 13:30 (Symbicort 160-4.5 Mcg Inh) 1 puff BID INH 06/01/17 09:00 06/06/17 09:00 (SEROquel) 400 mg HS PO 06/01/17 21:00 06/05/17 22:05 (Pill Splitter) 1 ea UNSCH PRN OTHER 06/01/17 00:45 (KlonoPIN) 1 mg TID PRN PO 06/01/17 17:45 06/06/17 15:43 (Zofran Odt) 8 mg TIDAC PO 06/02/17 08:00 06/06/17 15:43 (Vitamin D3) 3,000 units DAILY PO 06/01/17 18:00 06/01/17 22:33 (Nephrocaps) 1 cap DAILY PO 06/01/17 18:00 06/06/17 09:00 (Tylenol - Codeine 120-12 Liq) 5 ml Q6H PRN PO 06/01/17 18:00 06/06/17 15:43 (Hycet 325-7.5 Mg Liq) 15 ml Q6H PRN PO 06/02/17 10:30 06/06/17 10:05 (Heparin Inj) 5,000 units Q12HR SQ 06/02/17 21:00 06/06/17 09:55 (Lidoderm 5% Patch.12 Hr) 1 patch DAILY T-DERMAL 06/03/17 15:15 06/06/17 10:02 Miscellaneous Information 1 Q24H T-DERMAL 06/03/17 09:00 (Miralax) 17 gm DAILY PO 06/05/17 09:00 06/06/17 09:56 (Duoneb Neb) 1 ampule Q6HR WHILE AWAKE NEB NEB 06/04/17 20:00 06/06/17 14:40 (Mucinex Er) 1,200 mg BID PO 06/04/17 21:00 06/06/17 09:47 (Zithromax) 250 mg DAILY PO 06/06/17 09:00 06/06/17 09:56 A/P Problem List: (1) PNA (pneumonia) ICD Code: J18.9 - Pneumonia, unspecified organism (2) Hypoxia ICD Code: R09.02 - Hypoxemia (3) Renal insufficiency ICD Code: N28.9 - Disorder of kidney and ureter, unspecified (4) Chronic back pain ICD Code: M54.9 - Dorsalgia, unspecified; G89.29 - Other chronic pain Assessment and Plan 61-year-old female with a PMH of Bipolar Disorder, COPD, HTN, GERD and h/o Gastric Sleeve who was referred to the ER by Dr. Barrientos for eval of SOB and episode of hypoxia. Underwent Gastric Sleeve 05/13/[address] Barrientos, had some weakness post-op and was sent to Rehab. States while at Rehab today had significant SOB, seen by Dr. Barrientos and sent to ER for further eval. PNA, multilobar: presented with cough, SOB, with episode of hypoxia while at Dr. Barrientos's office. -Influenza negative -Blood cultures with NGTD -CXR images reviewed, shows left basilar consolidation -CTA Pulm images reviewed, negative for PE, but shows consolidation LLL and RLL -On IV Cefepime and Azithro. -Sputum Culture normal respiratory anna -Urinary Legionella/Pneumococcal Antigens negative -Continue DuoNeb prn, Incentive Spirometry, Acapella = Patient likely with obesity hypoventilation syndrome/obstructive sleep apnea. Decrease sedating medications. =06/04 patient complaining of worsening dyspnea. Persistent cough. Now on 3LNC with O2 sats 91%. Obtain CXR. Increase Mucinex dose. Schedule Duonebs. =06/05 repeat CXR shows cardiomegaly with mild basilar atelectasis. De-escalate antibiotics. D/C IV Cefepime and Azithro. Continue on po Azithromycin. 06/06 the patient complains of worsening dyspnea persistent cough. Will repeat chest x-ray. Patient given azithromycin, will start the patient on cefuroxime. Increase lasix dose to 40 mg po daily. Hypoxia: h/o COPD, on O2 intermittently at home, O2 sat 90-91% on RA while in ER. Suspect secondary to pneumonia with underlying COPD. -continue O2 as needed, monitor -continue aggressive pulmonary toilet as above = Decrease sedating medications. ANASTASIIA: Creatinine 1.36, previously 0.81 on 05/15/17 -Give IVF for hydration, repeat labs in a.m. = Resolved. Chronic Back Pain: chronic. patient requesting pain meds be restarted -will continue pain control with [place] prn -outpatient f/up = Limit narcotics. Start Lidoderm patch for back pain. //Recent Bariatric Surgery: patient is s/p recent gastric sleeve surgery with Dr. Barrientos //Deconditioned -continue pain control -outpatient f/up with Dr. Barrientos -PT recommends rehab. Patient unable to return to [place] she was discharged from that facility. Increase PT participation to daily. transaminitis: LFTs previously normal in 2013 -possibly medication side effect, patient on multiple psychiatric medications as well as statin -repeat CMP in the am, outpatient f/up = Much improved. Alk phos slightly elevated at 143. Constipation -no BM in 3 days -continue on Britt Colace -continue Miralax 17gm daily -give Dulcolax suppository today //DVT Prophylaxis: SCD/Teds. Heparin sq. Discharge Planning DC pending placement arrangement. Julius Mejia MD Jun 06, 2017 17:18
--- NOTE | 2017-06-06 17:21 | HHI.PR ---
Objective Vitals Vital Signs Date Time Temp Pulse Resp B/P (MAP) Pulse Ox O2 Delivery O2 Flow Rate FiO2 06/06/17 16:00 97.1 70 20 128/78 (95) 91 06/06/17 12:00 98.1 58 20 142/84 (103) 94 06/06/17 08:06 90 Nasal Cannula 3.00 06/06/17 08:00 97.4 59 20 137/78 (97) 90 06/05/17 21:23 91 Nasal Cannula 3.00 06/05/17 20:00 96.6 60 22 104/59 (74) 93 I/O 06/05/17 06/05/17 06/05/17 06/06/17 06/06/17 06/06/17 07:00 15:00 23:00 07:00 15:00 23:00 Intake Total 1440 ml Balance 1440 ml Intake Oral 1440 ml # Voids 2 4 # Bowel Movements 1 0 Result Diagram: 06/05/17 0826 06/05/17 0826 A/P Problem List: (1) PNA (pneumonia) ICD Code: J18.9 - Pneumonia, unspecified organism (2) Hypoxia ICD Code: R09.02 - Hypoxemia (3) Renal insufficiency ICD Code: N28.9 - Disorder of kidney and ureter, unspecified (4) Chronic back pain ICD Code: M54.9 - Dorsalgia, unspecified; G89.29 - Other chronic pain Julius Mejia MD Jun 06, 2017 17:21
[2017-06-06 20:13] VITALS: BP 108/57; PULSE 61; RESP 20; TEMP 96.7; O2SAT 91
[2017-06-06 20:17] VITALS: O2SAT 92
--- NOTE | 2017-06-06 20:51 | RADRPT ---
EXAM DATE/TIME: 06/06/2017 19:39 [facility] COMPARISON: CT PULMONARY ANGIOGRAM, June 01, 2017, 0:06. CHEST SINGLE AP, June 04, 2017, 10:03. INDICATIONS : Short of breath MEDICAL HISTORY : Chronic obstructive pulmonary disease SURGICAL HISTORY : Hysterectomy. Cholecystectomy. Gastric sleeve, bilateral hip replacements ENCOUNTER: Subsequent ACUITY: 3 days PAIN SCORE: 0/10 LOCATION: chest FINDINGS: The heart size is enlarged. There is mild increased density at the bases especially on the left. A si gnificant effusion is not seen.. CONCLUSION: 1. Cardiomegaly. 2. Mild increased density represent atelectasis or consolidation at the bases being worse on the left . Rosendo Arroyo MD on June 06, 2017 at 20:48 Board Certified Radiologist. This report was verified electronically.
[2017-06-06] MEDS: LATANOPROST 0.005% OPHT SOLN 2.5 ML BTL EACH EYE SCH (21:00)
[2017-06-06] MEDS: DOXEPIN HCL 50 MG CAP PO SCH (21:20)
[2017-06-06] MEDS: clonazePAM 1 MG TAB PO SCH (21:21)
[2017-06-07] MEDS: LEVOTHYROXINE SODIUM 88 MCG TAB PO SCH (06:00)
[2017-06-07] MEDS: ONDANSETRON ODT 4 MG TAB PO SCH ×3 (06:23→16:17)
[2017-06-07 08:00] VITALS: BP 136/78; PULSE 85; RESP 20; TEMP 97.9; O2SAT 98
[2017-06-07] MEDS: RESP: ALBUTEROL 2.5 MG/IPRATROPIUM 0.5 MG NEB (SCH) NEB ×3 (08:00→19:43)
[2017-06-07] MEDS: REMOVE OLD LIDOCAINE PATCH T-DERMAL SCH (09:00)
[2017-06-07] MEDS: BUDESONIDE-FORMOTEROL 160/4.5 MCG INHALER INH SCH ×2 (09:38→21:00)
[2017-06-07] MEDS: FLUTICASONE PROPIONATE 50 MCG/ACT 16 GM NASAL SPRAY NASAL SCH (09:40)
[2017-06-07] MEDS: CHOLECALCIFEROL (VIT D3) 1000 UNIT TAB PO SCH (09:40)
[2017-06-07] MEDS: guaiFENesin E.R. 600 MG TAB PO SCH ×2 (09:41→21:11)
[2017-06-07] MEDS: AZITHROMYCIN 250 MG TAB PO SCH (09:42)
[2017-06-07] MEDS: PANTOPRAZOLE SOD 40 MG DELAYED RELEASE TAB PO SCH (09:42)
[2017-06-07] MEDS: FUROSEMIDE 20 MG TAB PO SCH (09:43)
[2017-06-07] MEDS: DOCUSATE SODIUM 50 MG/SENNA 8.6 MG TAB PO SCH ×2 (09:43→21:08)
[2017-06-07] MEDS: PRAVASTATIN SOD 40 MG TAB PO SCH (09:44)
[2017-06-07] MEDS: VITAMIN B CMPLX/VITC/FOLIC AC CAP PO SCH (09:45)
[2017-06-07] MEDS: carBAMazepine 200 MG TAB PO SCH ×2 (09:46→21:08)
[2017-06-07] MEDS: METOPROLOL TARTRATE 50 MG TAB PO SCH ×2 (09:46→21:08)
[2017-06-07] MEDS: QUEtiapine FUMARATE 200 MG TAB PO SCH ×2 (09:46→21:08)
[2017-06-07] MEDS: SODIUM CHLORIDE 0.9% FLUSH 10 ML FLUSH IV FLUSH SCH ×2 (09:47→21:12)
[2017-06-07] MEDS: POLYETHYLENE GLYCOL 17 GM PKG PO SCH (09:47)
[2017-06-07] MEDS: LIDOCAINE HCL 5% PATCH T-DERMAL SCH (09:48)
[2017-06-07] MEDS: HEPARIN SODIUM - SQ 10,000 UNITS/ML VIAL SQ SCH ×2 (09:51→21:16)
[2017-06-07] MEDS: NYSTATIN 100,000 U/GM PWD 15 GM BTL TOPICAL SCH ×3 (09:52→18:00)
[2017-06-07] MEDS: clonazePAM 1 MG TAB PO PRN ×2 (10:03→16:16)
[2017-06-07] MEDS: ACETAMINOPHEN 325MG/HYDROcodone 7.5MG/15ML UDC PO PRN ×3 (10:06→22:23)
[2017-06-07] MEDS: MONTELUKAST SODIUM 10 MG TAB PO SCH (10:29)
--- NOTE | 2017-06-07 11:28 | HHI.PR ---
Subjective Remarks Patient admitted with Pneumonia, Shortness of breath. continue with shortness of breath not improving, she states she is not improving and asked for specialized evaluation I agree Objective Vital Signs Date Time Temp Pulse Resp B/P (MAP) Pulse Ox O2 Delivery O2 Flow Rate FiO2 06/07/17 08:00 97.9 85 20 136/78 (97) 98 06/06/17 20:17 92 Nasal Cannula 3.00 06/06/17 20:13 96.7 61 20 108/57 (74) 91 06/06/17 16:00 97.1 70 20 128/78 (95) 91 06/06/17 12:00 98.1 58 20 142/84 (103) 94 I/O 06/06/17 06/06/17 06/06/17 06/07/17 06/07/17 06/07/17 07:00 15:00 23:00 07:00 15:00 23:00 Intake Total 2160 ml Balance 2160 ml Intake Oral 2160 ml # Voids 3 # Bowel Movements 1 Result Diagram: 06/05/17 0826 06/05/17 0826 Imaging Last Impressions Chest X-Ray 06/06/17 0000 Signed Impressions: Service Date/Time: May 19:39 - CONCLUSION: 1. Cardiomegaly. 2. Mild increased density represent atelectasis or consolidation at the bases being worse on the left. Rosendo Arroyo MD CT Angiography 05/31/172115 Signed Impressions: Service Date/Time: Thursday, June 01, 2017 00:06 - CONCLUSION: 1. No evidence of pulmonary embolism. 2. Areas of consolidation in the left lower lobe and milder consolidation in the right lower lobe most characteristic of pneumonia. Maxwell Blanton MD Procedures None Other Results Laboratory Tests Test 05/31/17 21:37 05/31/17 21:42 06/03/17 04:00 06/05/17 08:26 Lactic Acid Level 0.9 mmol/L B-Type Natriuretic Peptide 52 PG/ML Blood Urea Nitrogen 16 MG/DL 12 MG/DL Creatinine 0.79 MG/DL 0.69 MG/DL Random Glucose 82 MG/DL 86 MG/DL Total Protein 5.8 GM/DL Albumin 2.6 GM/DL Calcium Level 7.8 MG/DL 8.3 MG/DL Alkaline Phosphatase 143 U/L Aspartate Amino Transf (AST/SGOT) 16 U/L Alanine Aminotransferase (ALT/SGPT) 28 U/L Total Bilirubin 0.2 MG/DL Sodium Level 144 MEQ/L 144 MEQ/L Potassium Level 3.6 MEQ/L 3.9 MEQ/L Chloride Level 109 MEQ/L 108 MEQ/L Carbon Dioxide Level 28.4 MEQ/L 30.8 MEQ/L White Blood Count 7.0 TH/MM3 Red Blood Count 3.96 MIL/MM3 Hemoglobin 11.2 GM/DL Hematocrit 34.3 % Mean Corpuscular Volume 86.7 FL Mean Corpuscular Hemoglobin 28.2 PG Mean Corpuscular Hemoglobin Concent 32.6 % Red Cell Distribution Width 14.0 % Platelet Count 297 TH/MM3 Mean Platelet Volume 8.1 FL Neutrophils (%) (Auto) 55.9 % Lymphocytes (%) (Auto) 28.6 % Monocytes (%) (Auto) 7.4 % Eosinophils (%) (Auto) 7.5 % Basophils (%) (Auto) 0.6 % Neutrophils # (Auto) 3.9 TH/MM3 Lymphocytes # (Auto) 2.0 TH/MM3 Monocytes # (Auto) 0.5 TH/MM3 Eosinophils # (Auto) 0.5 TH/MM3 Basophils # (Auto) 0.0 TH/MM3 CBC Comment DIFF FINAL Differential Comment Anion Gap 5 MEQ/L Estimat Glomerular Filtration Rate 86 ML/MIN Objective Remarks GENERAL: Obesity. SKIN: Warm and dry. HEAD: Atraumatic. Normocephalic. EYES: Pupils equal and round. No scleral icterus. No injection or drainage. ENT: No nasal bleeding or discharge. Mucous membranes pink and moist. NECK: Trachea midline. No JVD. CARDIOVASCULAR: Regular rate and rhythm. RESPIRATORY: decreased breath sounds bilateral, No expiratory wheezing, but has bilateral crackles on both bases. GASTROINTESTINAL: Abdomen soft, non-tender, nondistended. Hepatic and splenic margins not palpable. MUSCULOSKELETAL: Extremities without clubbing, cyanosis, or edema. No obvious deformities. NEUROLOGICAL: Awake and alert. No obvious cranial nerve deficits. PSYCHIATRIC: Appropriate mood and affect; insight and judgment normal. Medications and IVs Current Medications Medications (Trade) Dose Ordered Sig/Chemo Route Start Time Stop Time Status Last Admin (Duoneb Neb) 1 ampule Q4HR NEB PRN NEB 06/01/17 00:30 (NS Flush) 2 ml UNSCH PRN IV FLUSH 06/01/17 00:30 (NS Flush) 2 ml BID IV FLUSH 06/01/17 09:00 06/07/17 09:47 (Tylenol) 650 mg Q6H PRN PO 06/01/17 00:30 (Britt-Colace) 1 tab BID PO 06/01/17 09:00 06/07/17 09:43 (Milk Of Magnesia Liq) 30 ml Q12H PRN PO 06/01/17 00:30 06/04/17 22:08 (Senokot) 17.2 mg Q12H PRN PO 06/01/17 00:30 (Dulcolax Supp) 10 mg DAILY PRN RECTAL 06/01/17 00:30 (Lactulose Liq) 30 ml DAILY PRN PO 06/01/17 00:30 (TEGretol) 100 mg DAILY PO 06/01/17 09:00 06/07/17 09:46 (KlonoPIN) 1 mg HS PO 06/01/17 21:00 06/06/17 21:21 (SINEquan) 100 mg HS PO 06/01/17 21:00 06/06/17 21:20 (Xalatan 0.005% Opth Soln) 1 drop HS EACH EYE 06/01/17 21:00 06/06/17 21:00 (Synthroid) 88 mcg DAILY@0600 PO 06/01/17 06:00 06/07/17 06:00 (Lopressor) 50 mg BID PO 06/01/17 09:00 06/07/17 09:46 (Singulair) 10 mg DAILY PO 06/01/17 09:00 06/07/17 10:29 (Mycostatin Powder) 1 applic TID TOPICAL 06/01/17 09:00 06/07/17 09:52 (Protonix) 40 mg DAILY PO 06/01/17 09:00 06/07/17 09:42 (Pravachol) 40 mg DAILY PO 06/01/17 09:00 06/07/17 09:44 (SEROquel) 200 mg DAILY PO 06/01/17 09:00 06/07/17 09:46 Patient Own Medication PT OWN MED: (Cyclosporine O... BID EACH EYE 06/01/17 09:00 Future Hold (Flonase Reinaldo Spr) 1 spray DAILY NASAL 06/01/17 09:00 06/07/17 09:40 (Symbicort 160-4.5 Mcg Inh) 1 puff BID INH 06/01/17 09:00 06/07/17 09:38 (SEROquel) 400 mg HS PO 06/01/17 21:00 06/06/17 21:00 (Pill Splitter) 1 ea UNSCH PRN OTHER 06/01/17 00:45 (KlonoPIN) 1 mg TID PRN PO 06/01/17 17:45 06/07/17 10:03 (Zofran Odt) 8 mg TIDAC PO 06/02/17 08:00 06/07/17 10:02 (Vitamin D3) 3,000 units DAILY PO 06/01/17 18:00 06/07/17 09:40 (Nephrocaps) 1 cap DAILY PO 06/01/17 18:00 06/07/17 09:45 (Tylenol - Codeine 120-12 Liq) 5 ml Q6H PRN PO 06/01/17 18:00 06/06/17 15:43 (Hycet 325-7.5 Mg Liq) 15 ml Q6H PRN PO 06/02/17 10:30 06/07/17 10:06 (Heparin Inj) 5,000 units Q12HR SQ 06/02/17 21:00 06/07/17 09:51 (Lidoderm 5% Patch.12 Hr) 1 patch DAILY T-DERMAL 06/03/17 15:15 06/07/17 09:48 Miscellaneous Information 1 Q24H T-DERMAL 06/03/17 09:00 06/07/17 09:00 (Miralax) 17 gm DAILY PO 06/05/17 09:00 06/07/17 09:47 (Duoneb Neb) 1 ampule Q6HR WHILE AWAKE NEB NEB 06/04/17 20:00 06/06/17 20:18 (Mucinex Er) 1,200 mg BID PO 06/04/17 21:00 06/07/17 09:41 (Zithromax) 250 mg DAILY PO 06/06/17 09:00 06/07/17 09:42 (Lasix) 40 mg DAILY PO 06/07/17 09:00 06/07/17 09:43 (Requip) 0.5 mg HS PO 06/07/17 21:00 A/P Assessment and Plan (1) PNA (pneumonia) ICD Code: J18.9 - Pneumonia, unspecified organism (2) Hypoxia ICD Code: R09.02 - Hypoxemia (3) Renal insufficiency ICD Code: N28.9 - Disorder of kidney and ureter, unspecified (4) Chronic back pain ICD Code: M54.9 - Dorsalgia, unspecified; G89.29 - Other chronic pain Assessment and Plan 61-year-old female with a PMH of Bipolar Disorder, COPD, HTN, GERD and h/o Gastric Sleeve who was referred to the ER by Dr. Barrientos for eval of SOB and episode of hypoxia. Underwent Gastric Sleeve 05/13/[address] Barrientos, had some weakness post-op and was sent to Rehab. States while at Rehab today had significant SOB, seen by Dr. Barrientos and sent to ER for further eval. PNA, multilobar: presented with cough, SOB, with episode of hypoxia while at Dr. Barrientos's office. -Influenza negative -Blood cultures with NGTD -CXR images reviewed, shows left basilar consolidation -CTA Pulm images reviewed, negative for PE, but shows consolidation LLL and RLL -On IV Cefepime and Azithro. -Sputum Culture normal respiratory anna -Urinary Legionella/Pneumococcal Antigens negative -Continue DuoNeb prn, Incentive Spirometry, Acapella = Patient likely with obesity hypoventilation syndrome/obstructive sleep apnea. Decrease sedating medications. =06/04 patient complaining of worsening dyspnea. Persistent cough. Now on 3LNC with O2 sats 91%. Obtain CXR. Increase Mucinex dose. Schedule Duonebs. =06/05 repeat CXR shows cardiomegaly with mild basilar atelectasis. De-escalate antibiotics. D/C IV Cefepime and Azithro. Continue on po Azithromycin. 06/06 the patient complains of worsening dyspnea persistent cough. Will repeat chest x-ray. Patient given azithromycin, will start the patient on cefuroxime. Increase lasix dose to 40 mg po daily. 06/07: not improving as per patient asked for microcomputer support specialist consult. Hypoxia: h/o COPD, on O2 intermittently at home, O2 sat 90-91% on RA while in ER. Suspect secondary to pneumonia with underlying COPD. -continue O2 as needed, monitor -continue aggressive pulmonary toilet as above = Decrease sedating medications. ANASTASIIA: Resolved. Chronic Back Pain: chronic. patient requesting pain meds be restarted -will continue pain control with [place] prn -outpatient f/up = Limit narcotics. Start Lidoderm patch for back pain. //Recent Bariatric Surgery: patient is s/p recent gastric sleeve surgery with Dr. Barrientos //Deconditioned -continue pain control -outpatient f/up with Dr. Barrientos -PT recommends rehab. Patient unable to return to [place] she was discharged from that facility. Increase PT participation to daily. transaminitis: LFTs previously normal in 2013 -possibly medication side effect, patient on multiple psychiatric medications as well as statin -repeat CMP in the am, outpatient f/up = Much improved. Alk phos slightly elevated at 143. Constipation -no BM in 3 days -continue on Britt Colace -continue Miralax 17gm daily -give Dulcolax suppository today //DVT Prophylaxis: SCD/Teds. Heparin sq. Discharge Planning Not yet found placement. Martinez Morales MD Jun 07, 2017 11:28
[2017-06-07 12:00] VITALS: BP 110/61; PULSE 60; RESP 19; TEMP 97.6; O2SAT 93
[2017-06-07 16:00] VITALS: BP 143/80; PULSE 63; RESP 18; TEMP 97.6; O2SAT 92
[2017-06-07 19:47] VITALS: O2SAT 92
[2017-06-07 20:00] VITALS: BP 143/78; PULSE 78; RESP 17; TEMP 96.8; O2SAT 92
[2017-06-07] MEDS: clonazePAM 1 MG TAB PO SCH (21:07)
[2017-06-07] MEDS: ACETAMINOPHEN/CODEINE ELIX 120 MG/12 MG/5 ML CUP PO PRN (21:11)
[2017-06-07] MEDS: LACTULOSE SYRUP 20 GM/30 ML CUP PO PRN (21:11)
[2017-06-07] MEDS: LATANOPROST 0.005% OPHT SOLN 2.5 ML BTL EACH EYE SCH (21:15)
[2017-06-07] MEDS: DOXEPIN HCL 50 MG CAP PO SCH (21:30)
[2017-06-08] VITALS (9 sets, daily range): BP systolic 102–136; BP diastolic 53–84; PULSE 54–78; RESP 17–21; TEMP 97–99; O2SAT 90–98
[2017-06-08] MEDS: LEVOTHYROXINE SODIUM 88 MCG TAB PO SCH (06:02)
[2017-06-08] MEDS: CHOLECALCIFEROL (VIT D3) 1000 UNIT TAB PO SCH (09:00)
[2017-06-08] MEDS: NYSTATIN 100,000 U/GM PWD 15 GM BTL TOPICAL SCH ×3 (09:00→18:42)
[2017-06-08] MEDS: REMOVE OLD LIDOCAINE PATCH T-DERMAL SCH (09:00)
[2017-06-08] MEDS: LACTULOSE SYRUP 20 GM/30 ML CUP PO PRN (09:33)
[2017-06-08] MEDS: MAGNESIUM HYDROXIDE SUSP 30 ML CUP PO PRN ×2 (09:33→22:40)
[2017-06-08] MEDS: SODIUM CHLORIDE 0.9% FLUSH 10 ML FLUSH IV FLUSH SCH ×2 (09:33→21:30)
[2017-06-08] MEDS: PANTOPRAZOLE SOD 40 MG DELAYED RELEASE TAB PO SCH (09:34)
[2017-06-08] MEDS: guaiFENesin E.R. 600 MG TAB PO SCH ×2 (09:34→21:31)
[2017-06-08] MEDS: DOCUSATE SODIUM 50 MG/SENNA 8.6 MG TAB PO SCH ×2 (09:34→21:32)
[2017-06-08] MEDS: ONDANSETRON ODT 4 MG TAB PO SCH ×3 (09:34→16:00)
[2017-06-08] MEDS: POLYETHYLENE GLYCOL 17 GM PKG PO SCH (09:34)
[2017-06-08] MEDS: METOPROLOL TARTRATE 50 MG TAB PO SCH ×2 (09:34→21:31)
[2017-06-08] MEDS: AZITHROMYCIN 250 MG TAB PO SCH (09:35)
[2017-06-08] MEDS: PRAVASTATIN SOD 40 MG TAB PO SCH (09:35)
[2017-06-08] MEDS: MONTELUKAST SODIUM 10 MG TAB PO SCH (09:35)
[2017-06-08] MEDS: FUROSEMIDE 20 MG TAB PO SCH ×2 (09:35→15:11)
[2017-06-08] MEDS: HEPARIN SODIUM - SQ 10,000 UNITS/ML VIAL SQ SCH ×2 (09:35→21:33)
[2017-06-08] MEDS: LIDOCAINE HCL 5% PATCH T-DERMAL SCH ×2 (09:36→15:10)
[2017-06-08] MEDS: QUEtiapine FUMARATE 200 MG TAB PO SCH ×2 (09:36→21:32)
[2017-06-08] MEDS: VITAMIN B CMPLX/VITC/FOLIC AC CAP PO SCH (09:37)
[2017-06-08] MEDS: ACETAMINOPHEN 325MG/HYDROcodone 7.5MG/15ML UDC PO PRN ×2 (09:39→18:39)
[2017-06-08] MEDS: BUDESONIDE-FORMOTEROL 160/4.5 MCG INHALER INH SCH ×2 (09:39→21:29)
[2017-06-08] MEDS: FLUTICASONE PROPIONATE 50 MCG/ACT 16 GM NASAL SPRAY NASAL SCH (09:39)
[2017-06-08] MEDS: RESP: ALBUTEROL 2.5 MG/IPRATROPIUM 0.5 MG NEB (SCH) NEB (11:49)
[2017-06-08] MEDS: clonazePAM 1 MG TAB PO PRN ×2 (12:18→18:38)
[2017-06-08] MEDS: ACETAMINOPHEN/CODEINE ELIX 120 MG/12 MG/5 ML CUP PO PRN (12:19)
--- NOTE | 2017-06-08 14:10 | HHI.PR ---
Subjective Remarks f/u sob Patient still has SOB, stable, no fever, mild LE edema. Improved but still not back to baseline, allegedly on lasix 40 mg daily, (+) BM. Lidoderm patch came off. Objective Vitals Vital Signs Date Time Temp Pulse Resp B/P (MAP) Pulse Ox O2 Delivery O2 Flow Rate FiO2 06/08/17 13:19 18 06/08/17 11:53 95 Nasal Cannula 3.00 06/08/17 10:39 18 06/08/17 06:03 54 18 102/56 (71) 93 06/08/17 04:00 97.6 56 17 103/53 (70) 94 06/08/17 03:40 55 18 95 06/08/17 00:18 55 18 90 06/07/17 20:00 96.8 78 17 143/78 (99) 92 06/07/17 19:47 92 Nasal Cannula 4.00 06/07/17 16:00 97.6 63 18 143/80 (101) 92 I/O 06/07/17 06/07/17 06/07/17 06/08/17 06/08/17 06/08/17 06:59 14:59 22:59 06:59 14:59 22:59 Intake Total 962 ml 480 ml Balance 962 ml 480 ml Intake Oral 960 ml 480 ml IV Total 2 ml # Voids 4 3 # Bowel Movements 1 Result Diagram: 06/05/17 0826 06/05/17 08 Objective Remarks Not in distress Pupils equal round and reactive, anicteric No JVD Regular rate and rhythm Decreased breath sounds at bases, occasional crackles, no wheezing Trace edema Alert awake and oriented 3, no focal deficits. A/P Problem List: (1) PNA (pneumonia) ICD Code: J18.9 - Pneumonia, unspecified organism (2) Hypoxia ICD Code: R09.02 - Hypoxemia (3) Renal insufficiency ICD Code: N28.9 - Disorder of kidney and ureter, unspecified (4) Chronic back pain ICD Code: M54.9 - Dorsalgia, unspecified; G89.29 - Other chronic pain Assessment and Plan 61-year-old female with a PMH of Bipolar Disorder, COPD, HTN, GERD and h/o Gastric Sleeve who was referred to the ER by Dr. Barrientos for eval of SOB and episode of hypoxia. Underwent Gastric Sleeve 05/13/[address] Barrientos, had some weakness post-op and was sent to Rehab and was admitted because of shortness of breath. PNA, multilobar: presented with cough, SOB, with episode of hypoxia while at Dr. Barrientos's office. Influenza negative, Blood cultures with NGTD, CXR images reviewed, shows left basilar consolidation, CT scan of the lungs negative for PE , showed bilateral lower lobe consolidation. Status post cefepime, finished cefepime, finished azithromycin after 5 days. Sputum culture showed normal anna. Urine Legionella and pneumococcal antigens negative. Continue duo nebs , spirometry and Acapella. Shortness of breath, hypoxic respiratory failure, acute on top of chronic, possible obesity hypoventilation syndrome-continue decrease sedating medications. Patient still with mild shortness of breath, chest x-ray unchanged , finished azithromycin, stop cefuroxime. Continue Lasix 40 mg daily, add 20 mg at night. Recheck BMP tomorrow. Follow-up urinary consultation. ANASTASIIA: Resolved. Chronic Back Pain: chronic, to [place], Lidoderm patch. Recent Bariatric Surgery: patient is s/p recent gastric sleeve surgery with Dr. Barrientos, follow-up as outpatient Deconditioned-rehab when discharged. Patient unable to return to [place] she was discharged from that facility. Increase PT participation to daily. LFT elevation-resolved Constipation-resolved continue bowel regimen Heparin for DVT prophylaxis Discharge Planning Awaiting placement, finding a [facility] in [place]. Yumiko Vaughan MD Jun 08, 2017 14:10
[2017-06-08] MEDS: RESP: ALBUTEROL 2.5 MG/IPRATROPIUM 0.5 MG NEB (PRN) NEB (14:32)
[2017-06-08] MEDS: LATANOPROST 0.005% OPHT SOLN 2.5 ML BTL EACH EYE SCH (21:29)
[2017-06-08] MEDS: clonazePAM 1 MG TAB PO SCH (21:31)
[2017-06-08] MEDS: carBAMazepine 200 MG TAB PO SCH (22:36)
[2017-06-08] MEDS: DOXEPIN HCL 50 MG CAP PO SCH (22:38)
[2017-06-09 00:11] VITALS: BP 102/55; PULSE 56; RESP 18; TEMP 98.6; O2SAT 93
[2017-06-09] MEDS: clonazePAM 1 MG TAB PO PRN ×3 (01:03→15:27)
[2017-06-09] MEDS: ACETAMINOPHEN 325MG/HYDROcodone 7.5MG/15ML UDC PO PRN ×4 (01:05→21:00)
[2017-06-09] MEDS: LEVOTHYROXINE SODIUM 88 MCG TAB PO SCH (06:10)
[2017-06-09] MEDS: RESP: ALBUTEROL 2.5 MG/IPRATROPIUM 0.5 MG NEB (SCH) NEB ×3 (08:28→19:32)
--- NOTE | 2017-06-09 08:44 | HHI.PR ---
Subjective Remarks 06/09: Patient admitted with Pneumonia, Shortness of breath. today improved condition she wants to go to SNF accepted [facility], no nausea, vomit or diarrhea. discussed with nurse, patient and [employer]. Objective Vital Signs Date Time Temp Pulse Resp B/P (MAP) Pulse Ox O2 Delivery O2 Flow Rate FiO2 06/09/17 00:11 98.6 56 18 102/55 (71) 93 06/08/17 20:00 99.0 78 21 136/84 (101) 93 06/08/17 19:30 95 Nasal Cannula 2.00 06/08/17 17:30 97.6 73 17 127/76 (93) 91 06/08/17 13:19 18 06/08/17 12:00 97.0 71 18 105/70 (82) 98 06/08/17 11:53 95 Nasal Cannula 3.00 06/08/17 10:39 18 I/O 06/08/17 06/08/17 06/08/17 06/09/17 06/09/17 06/09/17 06:59 14:59 22:59 06:59 14:59 22:59 Intake Total 480 ml 1000 ml 480 ml Balance 480 ml 1000 ml 480 ml Intake Oral 480 ml 1000 ml 480 ml IV Total 0 ml # Voids 3 3 3 # Bowel Movements 4 0 Result Diagram: 06/05/17 0826 06/05/17 0826 Imaging Last Impressions Chest X-Ray 06/06/17 0000 Signed Impressions: Service Date/Time: May 19:39 - CONCLUSION: 1. Cardiomegaly. 2. Mild increased density represent atelectasis or consolidation at the bases being worse on the left. Rosendo Arroyo MD CT Angiography 05/31/172115 Signed Impressions: Service Date/Time: Thursday, June 01, 2017 00:06 - CONCLUSION: 1. No evidence of pulmonary embolism. 2. Areas of consolidation in the left lower lobe and milder consolidation in the right lower lobe most characteristic of pneumonia. Maxwell Blanton MD Procedures None Other Results Laboratory Tests Test 05/31/17 21:37 05/31/17 21:42 06/03/17 04:00 06/05/17 08:26 Lactic Acid Level 0.9 mmol/L B-Type Natriuretic Peptide 52 PG/ML Blood Urea Nitrogen 16 MG/DL 12 MG/DL Creatinine 0.79 MG/DL 0.69 MG/DL Random Glucose 82 MG/DL 86 MG/DL Total Protein 5.8 GM/DL Albumin 2.6 GM/DL Calcium Level 7.8 MG/DL 8.3 MG/DL Alkaline Phosphatase 143 U/L Aspartate Amino Transf (AST/SGOT) 16 U/L Alanine Aminotransferase (ALT/SGPT) 28 U/L Total Bilirubin 0.2 MG/DL Sodium Level 144 MEQ/L 144 MEQ/L Potassium Level 3.6 MEQ/L 3.9 MEQ/L Chloride Level 109 MEQ/L 108 MEQ/L Carbon Dioxide Level 28.4 MEQ/L 30.8 MEQ/L White Blood Count 7.0 TH/MM3 Red Blood Count 3.96 MIL/MM3 Hemoglobin 11.2 GM/DL Hematocrit 34.3 % Mean Corpuscular Volume 86.7 FL Mean Corpuscular Hemoglobin 28.2 PG Mean Corpuscular Hemoglobin Concent 32.6 % Red Cell Distribution Width 14.0 % Platelet Count 297 TH/MM3 Mean Platelet Volume 8.1 FL Neutrophils (%) (Auto) 55.9 % Lymphocytes (%) (Auto) 28.6 % Monocytes (%) (Auto) 7.4 % Eosinophils (%) (Auto) 7.5 % Basophils (%) (Auto) 0.6 % Neutrophils # (Auto) 3.9 TH/MM3 Lymphocytes # (Auto) 2.0 TH/MM3 Monocytes # (Auto) 0.5 TH/MM3 Eosinophils # (Auto) 0.5 TH/MM3 Basophils # (Auto) 0.0 TH/MM3 CBC Comment DIFF FINAL Differential Comment Anion Gap 5 MEQ/L Estimat Glomerular Filtration Rate 86 ML/MIN Objective Remarks GENERAL: Morbid obesity. SKIN: Warm and dry. HEAD: Atraumatic. Normocephalic. EYES: Pupils equal and round. No scleral icterus. No injection or drainage. ENT: No nasal bleeding or discharge. Mucous membranes pink and moist. NECK: Trachea midline. No JVD. CARDIOVASCULAR: Regular rate and rhythm. RESPIRATORY: decreased breath sounds bilateral, No expiratory wheezing, no crackles on bases. GASTROINTESTINAL: Abdomen soft, non-tender, nondistended. Hepatic and splenic margins not palpable. MUSCULOSKELETAL: Extremities without clubbing, cyanosis, or edema. No obvious deformities. NEUROLOGICAL: Awake and alert. No obvious cranial nerve deficits. PSYCHIATRIC: Appropriate mood and affect; insight and judgment normal. Medications and IVs Current Medications Medications (Trade) Dose Ordered Sig/Chemo Route Start Time Stop Time Status Last Admin (Duoneb Neb) 1 ampule Q4HR NEB PRN NEB 06/01/17 00:30 06/08/17 14:32 (NS Flush) 2 ml UNSCH PRN IV FLUSH 06/01/17 00:30 (NS Flush) 2 ml BID IV FLUSH 06/01/17 09:00 06/08/17 21:30 (Tylenol) 650 mg Q6H PRN PO 06/01/17 00:30 (Britt-Colace) 1 tab BID PO 06/01/17 09:00 06/08/17 21:32 (Milk Of Magnesia Liq) 30 ml Q12H PRN PO 06/01/17 00:30 06/08/17 22:40 (Senokot) 17.2 mg Q12H PRN PO 06/01/17 00:30 (Dulcolax Supp) 10 mg DAILY PRN RECTAL 06/01/17 00:30 (Lactulose Liq) 30 ml DAILY PRN PO 06/01/17 00:30 06/08/17 09:33 (KlonoPIN) 1 mg HS PO 06/01/17 21:00 06/08/17 21:31 (SINEquan) 100 mg HS PO 06/01/17 21:00 06/08/17 22:38 (Xalatan 0.005% Opth Soln) 1 drop HS EACH EYE 06/01/17 21:00 06/08/17 21:29 (Synthroid) 88 mcg DAILY@0600 PO 06/01/17 06:00 06/09/17 06:10 (Lopressor) 50 mg BID PO 06/01/17 09:00 06/08/17 21:31 (Singulair) 10 mg DAILY PO 06/01/17 09:00 06/08/17 09:35 (Mycostatin Powder) 1 applic TID TOPICAL 06/01/17 09:00 06/08/17 18:42 (Protonix) 40 mg DAILY PO 06/01/17 09:00 06/08/17 09:34 (Pravachol) 40 mg DAILY PO 06/01/17 09:00 06/08/17 09:35 (SEROquel) 200 mg DAILY PO 06/01/17 09:00 06/08/17 09:36 Patient Own Medication PT OWN MED: (Cyclosporine O... BID EACH EYE 06/01/17 09:00 Future Hold (Flonase Reinaldo Spr) 1 spray DAILY NASAL 06/01/17 09:00 06/08/17 09:39 (Symbicort 160-4.5 Mcg Inh) 1 puff BID INH 06/01/17 09:00 06/08/17 21:29 (SEROquel) 400 mg HS PO 06/01/17 21:00 06/08/17 21:32 (Pill Splitter) 1 ea UNSCH PRN OTHER 06/01/17 00:45 (KlonoPIN) 1 mg TID PRN PO 06/01/17 17:45 06/09/17 01:03 (Zofran Odt) 8 mg TIDAC PO 06/02/17 08:00 06/08/17 16:00 (Vitamin D3) 3,000 units DAILY PO 06/01/17 18:00 06/07/17 09:40 (Nephrocaps) 1 cap DAILY PO 06/01/17 18:00 06/08/17 09:37 (Tylenol - Codeine 120-12 Liq) 5 ml Q6H PRN PO 06/01/17 18:00 06/08/17 12:19 (Hycet 325-7.5 Mg Liq) 15 ml Q6H PRN PO 06/02/17 10:30 06/09/17 01:05 (Heparin Inj) 5,000 units Q12HR SQ 06/02/17 21:00 06/08/17 21:33 (Lidoderm 5% Patch.12 Hr) 1 patch DAILY T-DERMAL 06/03/17 15:15 06/08/17 09:36 Miscellaneous Information 1 Q24H T-DERMAL 06/03/17 09:00 06/07/17 09:00 (Miralax) 17 gm DAILY PO 06/05/17 09:00 06/08/17 09:34 (Mucinex Er) 1,200 mg BID PO 06/04/17 21:00 06/08/17 21:31 (Lasix) 40 mg DAILY PO 3/30/18 09:00 06/08/17 09:35 (Requip) 0.5 mg HS PO 06/07/17 21:00 06/08/17 22:37 (TEGretol) 200 mg HS PO 06/07/17 21:00 06/08/17 22:36 (Lidoderm 5% Patch.12 Hr) 1 patch DAILY T-DERMAL 06/08/17 14:15 06/08/17 15:10 (Duoneb Neb) 1 ampule Q6HR WHILE AWAKE NEB NEB 06/08/17 20:00 (Zithromax) 500 mg DAILY PO 06/09/17 09:00 06/10/17 08:59 (Lasix) 20 mg 1600 PO 06/08/17 16:00 06/08/17 15:11 A/P Assessment and Plan (1) PNA (pneumonia) ICD Code: J18.9 - Pneumonia, unspecified organism (2) Hypoxia ICD Code: R09.02 - Hypoxemia (3) Renal insufficiency ICD Code: N28.9 - Disorder of kidney and ureter, unspecified (4) Chronic back pain ICD Code: M54.9 - Dorsalgia, unspecified; G89.29 - Other chronic pain Assessment and Plan 61-year-old female with a PMH of Bipolar Disorder, COPD, HTN, GERD and h/o Gastric Sleeve who was referred to the ER by Dr. Barrientos for eval of SOB and episode of hypoxia. Underwent Gastric Sleeve 05/13/[address] Barrientos, had some weakness post-op and was sent to Rehab. States while at Rehab today had significant SOB, seen by Dr. Barrientos and sent to ER for further eval. PNA, multilobar: presented with cough, SOB, with episode of hypoxia while at Dr. Barrientos's office. -Influenza negative -Blood cultures with NGTD -CXR images reviewed, shows left basilar consolidation -CTA Pulm images reviewed, negative for PE, but shows consolidation LLL and RLL -On IV Cefepime and Azithro. -Sputum Culture normal respiratory anna -Urinary Legionella/Pneumococcal Antigens negative -Continue DuoNeb prn, Incentive Spirometry, Acapella = Patient likely with obesity hypoventilation syndrome/obstructive sleep apnea. Decrease sedating medications. =06/04 patient complaining of worsening dyspnea. Persistent cough. Now on 3LNC with O2 sats 91%. Obtain CXR. Increase Mucinex dose. Schedule Duonebs. =06/05 repeat CXR shows cardiomegaly with mild basilar atelectasis. De-escalate antibiotics. D/C IV Cefepime and Azithro. Continue on po Azithromycin. 06/06 the patient complains of worsening dyspnea persistent cough. Will repeat chest x-ray. Patient given azithromycin, will start the patient on cefuroxime. continue Lasix by mouth. 06/09: Improving condition okay to discharge. Hypoxia: h/o COPD, on O2 intermittently at home, O2 sat 90-91% on RA while in ER. Suspect secondary to pneumonia with underlying COPD. -continue O2 as needed, monitor -continue aggressive pulmonary toilet as above = Decrease sedating medications. ANASTASIIA: Resolved. Chronic Back Pain: chronic. patient requesting pain meds be restarted -will continue pain control with [place] prn -outpatient f/up = Limit narcotics. Start Lidoderm patch for back pain. //Recent Bariatric Surgery: patient is s/p recent gastric sleeve surgery with Dr. Barrientos //Deconditioned -continue pain control -outpatient f/up with Dr. Barrientos -PT recommends rehab. Patient unable to return to [place] she was discharged from that facility. transaminitis: LFTs previously normal in 2013 -possibly medication side effect, patient on multiple psychiatric medications as well as statin -repeat CMP in the am, outpatient f/up = Much improved. Alk phos slightly elevated at 143. //DVT Prophylaxis: SCD/Teds. Heparin sq. Discharge Planning Discharge to SNF today. Martinez Morales MD Jun 09, 2017 08:44
[2017-06-09] MEDS: CHOLECALCIFEROL (VIT D3) 1000 UNIT TAB PO SCH (09:00)
[2017-06-09] MEDS: VITAMIN B CMPLX/VITC/FOLIC AC CAP PO SCH (09:00)
[2017-06-09] MEDS: SODIUM CHLORIDE 0.9% FLUSH 10 ML FLUSH IV FLUSH SCH ×2 (09:00→20:50)
[2017-06-09] MEDS: REMOVE OLD LIDOCAINE PATCH T-DERMAL SCH (09:00)
[2017-06-09] MEDS ORDERED: AZITHROMYCIN 250 MG TAB PO SCH (09:00)
[2017-06-09] MEDS: LIDOCAINE HCL 5% PATCH T-DERMAL SCH ×2 (09:00→09:33)
[2017-06-09] MEDS: guaiFENesin E.R. 600 MG TAB PO SCH ×2 (09:24→20:50)
[2017-06-09] MEDS: ONDANSETRON ODT 4 MG TAB PO SCH ×3 (09:25→17:00)
[2017-06-09] MEDS: HEPARIN SODIUM - SQ 10,000 UNITS/ML VIAL SQ SCH ×2 (09:25→20:51)
[2017-06-09] MEDS: METOPROLOL TARTRATE 50 MG TAB PO SCH ×2 (09:25→20:55)
[2017-06-09] MEDS: PRAVASTATIN SOD 40 MG TAB PO SCH (09:26)
[2017-06-09] MEDS: PANTOPRAZOLE SOD 40 MG DELAYED RELEASE TAB PO SCH (09:26)
[2017-06-09] MEDS: FUROSEMIDE 20 MG TAB PO SCH ×2 (09:26→21:32)
[2017-06-09] MEDS: POLYETHYLENE GLYCOL 17 GM PKG PO SCH (09:27)
[2017-06-09] MEDS: DOCUSATE SODIUM 50 MG/SENNA 8.6 MG TAB PO SCH ×2 (09:27→20:50)
[2017-06-09] MEDS: QUEtiapine FUMARATE 200 MG TAB PO SCH ×2 (09:27→20:54)
[2017-06-09] MEDS: FLUTICASONE PROPIONATE 50 MCG/ACT 16 GM NASAL SPRAY NASAL SCH (09:30)
[2017-06-09] MEDS: BUDESONIDE-FORMOTEROL 160/4.5 MCG INHALER INH SCH ×2 (09:30→20:48)
[2017-06-09] MEDS: NYSTATIN 100,000 U/GM PWD 15 GM BTL TOPICAL SCH ×3 (09:34→18:00)
[2017-06-09] MEDS: MONTELUKAST SODIUM 10 MG TAB PO SCH (09:39)
[2017-06-09 12:00] VITALS: BP 107/61; PULSE 55; RESP 16; TEMP 97.1; O2SAT 95
[2017-06-09] MEDS ORDERED: Albuterol-Ipratropium Neb NEB (13:16)
--- NOTE | 2017-06-09 13:22 | HHI.DS ---
Discharge Summary Admission Date Jun 04, 2017 at 14:05 Discharge Date: Jun 09, 2017 Admitting Diagnosis LLL PNA WITH HYPOXEMIA, POST GASTRECTOMY SLEEVE (1) PNA (pneumonia) ICD Code: J18.9 - Pneumonia, unspecified organism Diagnosis: Principal (2) Hypoxia ICD Code: R09.02 - Hypoxemia Diagnosis: Principal (3) Renal insufficiency ICD Code: N28.9 - Disorder of kidney and ureter, unspecified Diagnosis: Principal (4) Chronic back pain ICD Code: M54.9 - Dorsalgia, unspecified; G89.29 - Other chronic pain Diagnosis: Principal Procedures None Brief History - From Admission This is a 61-year-old female with a PMH of Bipolar Disorder, COPD, HTN, GERD and h/o Gastric Sleeve who was referred to the ER by Dr. Barrientos for eval of SOB and episode of hypoxia. Underwent Gastric Sleeve 05/13/[address] Barrientos, had some weakness post-op and was sent to Rehab. States while at Rehab today had significant SOB, seen by Dr. Barrientos and sent to ER for further eval. Denies fever or chills. On arrival, BP 102/59, HR 65, O2 sat 95% on 2L NC, Afebrile. While in ER, O2 sat 90-91% on RA. Noted to have some wheezing on exam, s/p DuoNeb w/ improvement. WBC 11.2. Creatinine 1.36, previously 0.81 on 05/15/17. CTA Pulm negative for PE, areas of consolidation left lower lobe and consolidation right lower lobe. S/p Cefepime/Zithro in ER. CBC/BMP: 06/05/17 0826 06/05/17 0826 Imaging Last Impressions Chest X-Ray 06/06/17 0000 Signed Impressions: Service Date/Time: May 19:39 - CONCLUSION: 1. Cardiomegaly. 2. Mild increased density represent atelectasis or consolidation at the bases being worse on the left. Rosendo Arroyo MD CT Angiography [id number]/31/[id number] Signed Impressions: Service Date/Time: Thursday, June 01, 2017 00:06 - CONCLUSION: 1. No evidence of pulmonary embolism. 2. Areas of consolidation in the left lower lobe and milder consolidation in the right lower lobe most characteristic of pneumonia. Maxwell Blanton MD PE at Discharge GENERAL: Morbid obesity. SKIN: Warm and dry. HEAD: Atraumatic. Normocephalic. EYES: Pupils equal and round. No scleral icterus. No injection or drainage. ENT: No nasal bleeding or discharge. Mucous membranes pink and moist. NECK: Trachea midline. No JVD. CARDIOVASCULAR: Regular rate and rhythm. RESPIRATORY: decreased breath sounds bilateral, No expiratory wheezing, no crackles on bases. GASTROINTESTINAL: Abdomen soft, non-tender, nondistended. Hepatic and splenic margins not palpable. MUSCULOSKELETAL: Extremities without clubbing, cyanosis, or edema. No obvious deformities. NEUROLOGICAL: Awake and alert. No obvious cranial nerve deficits. PSYCHIATRIC: Appropriate mood and affect; insight and judgment normal. Hospital Course 06/09: Patient admitted with Pneumonia, Shortness of breath. today improved condition she wants to go to SNF accepted [facility], no nausea, vomit or diarrhea. discussed with nurse, patient and [employer]. Assessment and Plan 61-year-old female with a PMH of Bipolar Disorder, COPD, HTN, GERD and h/o Gastric Sleeve who was referred to the ER by Dr. Barrientos for eval of SOB and episode of hypoxia. Underwent Gastric Sleeve 05/13/[address] Barrientos, had some weakness post-op and was sent to Rehab. States while at Rehab today had significant SOB, seen by Dr. Barrientos and sent to ER for further eval. PNA, multilobar: presented with cough, SOB, with episode of hypoxia while at Dr. Barrientos's office. -Influenza negative -Blood cultures with NGTD -CXR images reviewed, shows left basilar consolidation -CTA Pulm images reviewed, negative for PE, but shows consolidation LLL and RLL -On IV Cefepime and Azithro. -Sputum Culture normal respiratory anna -Urinary Legionella/Pneumococcal Antigens negative -Continue DuoNeb prn, Incentive Spirometry, Acapella = Patient likely with obesity hypoventilation syndrome/obstructive sleep apnea. Decrease sedating medications. =06/04 patient complaining of worsening dyspnea. Persistent cough. Now on 3LNC with O2 sats 91%. Obtain CXR. Increase Mucinex dose. Schedule Duonebs. =06/05 repeat CXR shows cardiomegaly with mild basilar atelectasis. De-escalate antibiotics. D/C IV Cefepime and Azithro. Continue on po Azithromycin. 06/06 the patient complains of worsening dyspnea persistent cough. Will repeat chest x-ray. Patient given azithromycin, will start the patient on cefuroxime. continue Lasix by mouth. 06/09: Improving condition okay to discharge. Hypoxia: h/o COPD, on O2 intermittently at home, O2 sat 90-91% on RA while in ER. Suspect secondary to pneumonia with underlying COPD. -continue O2 as needed, monitor -continue aggressive pulmonary toilet as above = Decrease sedating medications. ANASTASIIA: Resolved. Chronic Back Pain: chronic. patient requesting pain meds be restarted -will continue pain control with [place] prn -outpatient f/up = Limit narcotics. Start Lidoderm patch for back pain. //Recent Bariatric Surgery: patient is s/p recent gastric sleeve surgery with Dr. Barrientos //Deconditioned -continue pain control -outpatient f/up with Dr. Barrientos -PT recommends rehab. Patient unable to return to [facility] she was discharged from that facility. transaminitis: LFTs previously normal in 2013 -possibly medication side effect, patient on multiple psychiatric medications as well as statin -repeat CMP in the am, outpatient f/up = Much improved. Alk phos slightly elevated at 143. //DVT Prophylaxis: SCD/Teds. Heparin sq. Discharge Planning Discharge to SNF today. Pt Condition on Discharge: Good Discharge Disposition: Discharge to SNF Discharge Time: > 30 minutes Discharge Instructions DIET: Follow Instructions for: Heart Healthy Diet Activities you can perform: See Additionl Instruction Other Activity Instructions: Per PT recommendations Martinez Morales MD Jun 09, 2017 13:22
[2017-06-09] MEDS: clonazePAM 1 MG TAB PO SCH ×2 (15:25→20:53)
[2017-06-09 16:00] VITALS: BP 126/77; PULSE 57; RESP 18; TEMP 98.3; O2SAT 92
[2017-06-09 19:32] VITALS: O2SAT 92
[2017-06-09 20:34] VITALS: BP 130/66; PULSE 75; RESP 19; TEMP 99; O2SAT 91
[2017-06-09] MEDS: LATANOPROST 0.005% OPHT SOLN 2.5 ML BTL EACH EYE SCH (20:49)
[2017-06-09] MEDS: carBAMazepine 200 MG TAB PO SCH (20:51)
[2017-06-09] MEDS: DOXEPIN HCL 50 MG CAP PO SCH (20:51)
[2017-06-09] MEDS: MAGNESIUM HYDROXIDE SUSP 30 ML CUP PO PRN (20:59)
[2017-06-09 21:11] VITALS: BP 136/90; PULSE 79; RESP 20; TEMP 99.7; O2SAT 87
[2017-06-09] MEDS: RESP: ALBUTEROL 2.5 MG/IPRATROPIUM 0.5 MG NEB (PRN) NEB (21:33)
[2017-06-10 00:33] VITALS: BP 103/58; PULSE 65; RESP 18; TEMP 99.3; O2SAT 93
[2017-06-10] MEDS: LEVOTHYROXINE SODIUM 88 MCG TAB PO SCH (05:28)
[2017-06-10 08:00] VITALS: BP 100/55; PULSE 65; RESP 16; TEMP 98.3; O2SAT 92
[2017-06-10 08:21] VITALS: O2SAT 92
[2017-06-10] MEDS: RESP: ALBUTEROL 2.5 MG/IPRATROPIUM 0.5 MG NEB (SCH) NEB ×2 (08:21→13:01)
[2017-06-10] MEDS: SODIUM CHLORIDE 0.9% FLUSH 10 ML FLUSH IV FLUSH SCH (08:57)
[2017-06-10] MEDS: NYSTATIN 100,000 U/GM PWD 15 GM BTL TOPICAL SCH ×2 (09:00→13:43)
[2017-06-10] MEDS: POLYETHYLENE GLYCOL 17 GM PKG PO SCH (09:00)
[2017-06-10] MEDS: CHOLECALCIFEROL (VIT D3) 1000 UNIT TAB PO SCH (09:00)
[2017-06-10] MEDS: guaiFENesin E.R. 600 MG TAB PO SCH (09:00)
[2017-06-10] MEDS: LIDOCAINE HCL 5% PATCH T-DERMAL SCH ×2 (09:00→09:04)
[2017-06-10] MEDS: REMOVE OLD LIDOCAINE PATCH T-DERMAL SCH (09:00)
[2017-06-10] MEDS: FUROSEMIDE 20 MG TAB PO SCH (09:01)
[2017-06-10] MEDS: VITAMIN B CMPLX/VITC/FOLIC AC CAP PO SCH (09:02)
[2017-06-10] MEDS: METOPROLOL TARTRATE 50 MG TAB PO SCH (09:02)
[2017-06-10] MEDS: DOCUSATE SODIUM 50 MG/SENNA 8.6 MG TAB PO SCH (09:02)
[2017-06-10] MEDS: QUEtiapine FUMARATE 200 MG TAB PO SCH (09:02)
[2017-06-10] MEDS: ONDANSETRON ODT 4 MG TAB PO SCH ×2 (09:03→12:32)
[2017-06-10] MEDS: PRAVASTATIN SOD 40 MG TAB PO SCH (09:03)
[2017-06-10] MEDS: MONTELUKAST SODIUM 10 MG TAB PO SCH (09:03)
[2017-06-10] MEDS: HEPARIN SODIUM - SQ 10,000 UNITS/ML VIAL SQ SCH (09:03)
[2017-06-10] MEDS: clonazePAM 1 MG TAB PO PRN ×3 (09:07→16:16)
[2017-06-10] MEDS: ACETAMINOPHEN 325MG/HYDROcodone 7.5MG/15ML UDC PO PRN ×2 (09:10→16:16)
[2017-06-10] MEDS: BUDESONIDE-FORMOTEROL 160/4.5 MCG INHALER INH SCH (09:12)
[2017-06-10] MEDS: FLUTICASONE PROPIONATE 50 MCG/ACT 16 GM NASAL SPRAY NASAL SCH (09:12)
[2017-06-10 12:00] VITALS: BP 112/66; PULSE 56; RESP 18; TEMP 97.7; O2SAT 94
--- NOTE | 2017-06-10 15:43 | HHI.FF ---
Face to Face Verification Diagnosis: (1) Chronic back pain (2) Physical deconditioning (3) Hypoxia Physical Therapy Order: Evaluate and Treat, Improve ambulation, Strength and gait training Home Health Nursing Order: Medical education Signs/symptoms of disease process Oxygen administration education Medication education-adverse effect Nursing assessment with vital signs I have seen patient Zena Davenport on 06/10/17. My clinical findings support the need for the requested home health care services because: Ltd mobility - disease progression I certify that my clinical findings support that this patient is homebound because: Unsafe to leave home unassisted Martinez Morales MD Jun 10, 2017 15:43
[2017-06-10] MEDS ORDERED: HYDR1SOL6 PO (15:47)
[2017-06-10] MEDS ORDERED: CLON1 PO (15:47)
== END 2017-06-10 18:14 | DRG 190 ==
LOC: NEPD 15:32 → NEDA 06-01 00:18 → NEDH 06-01 05:21 → NEPHCDU 06-01 16:23 → OBSVTOIN 06-04 14:05 → HOCB 06-05 12:40 → N07B 06-08 17:15
PROVIDERS: ADMIT Internal Medicine; ATTEND Internal Medicine
DX: J44.0 Chronic obstructive pulmonary disease with (acute) lower respiratory infection (principal); J18.9 Pneumonia, unspecified organism; N17.9 Acute kidney failure, unspecified; J96.11 Chronic respiratory failure with hypoxia; I11.9 Hypertensive heart disease without heart failure; E66.2 Morbid (severe) obesity with alveolar hypoventilation; Z68.41 Body mass index [BMI] 40.0-44.9, adult; J98.11 Atelectasis; E03.9 Hypothyroidism, unspecified; K21.9 Gastro-esophageal reflux disease without esophagitis; G47.00 Insomnia, unspecified; G89.29 Other chronic pain; M54.9 Dorsalgia, unspecified; R74.0 Nonspecific elevation of levels of transaminase and lactic acid dehydrogenase [LDH]; G25.81 Restless legs syndrome; K59.00 Constipation, unspecified; M19.90 Unspecified osteoarthritis, unspecified site; F31.9 Bipolar disorder, unspecified; Z96.643 Presence of artificial hip joint, bilateral; Z98.84 Bariatric surgery status; Z99.81 Dependence on supplemental oxygen
CPT/HCPCS: 71045; 71046; 71275; 80048; 80053; 83605; 83880; 85025; 87040; 87070; 87205; 87449; 87804; 94150; 94640; 94664; 94667; 94668; 96361; 96365; 96366; 96367; 96375; G0378; G8987-GP; G8988-GP; J0456; J0692; J1644; J2270; J2930; J7030; J7050; J7613; Q9967